=== PATIENT | male | born 1970 | race Caucasian/White ===

== ENCOUNTER 2017-09-04 16:19 | Emergency (ER) | payer MEDICARE ==
[~2017-09-04] VITALS: Ht 177.8 cm; Wt 79.4 kg
[~2017-09-04 16:19] MED LIST: ALBU90I INH; ALBU90OI INH; CIPR500 PO; Cipro250 MG PO; FLUC150A PO; HYDACE5 PO; HYDACE5325 PO; IBUP800 PO; INS70/30PN SUBQ; INSULANI SUBQ; INSULANPEN SC; LANS30EC PO; NYST100TO TOP; NYSTRITC TOP; Norco 5-325 Ta1 EACH PO; PENVK500 PO; PRAV20 PO; PSEU120ER PO; Pyridium100 MG PO; Robaxin500 MG PO
[2017-09-04] MEDS ORDERED: Robaxin500 MG PO (18:12)
== END 2017-09-04 18:18 | disposition home or self-care (01) ==
LOC: ER 16:19
DX: G89.29 Other chronic pain (principal); M54.5 Low back pain; Z88.8 Allergy status to other drugs, medicaments and biological substances; Z79.899 Other long term (current) drug therapy; Z79.4 Long term (current) use of insulin; E11.9 Type 2 diabetes mellitus without complications; E78.5 Hyperlipidemia, unspecified; F17.210 Nicotine dependence, cigarettes, uncomplicated
CPT/HCPCS: 96372; 99283; J1885

== ENCOUNTER 2018-01-25 18:57 | Emergency (ER) | payer MEDICARE ==
[~2018-01-25] VITALS: Ht 177.8 cm; Wt 78.5 kg
== END 2018-01-25 20:15 | disposition home or self-care (01) ==
LOC: ER 18:57
DX: R07.81 Pleurodynia (principal); E11.9 Type 2 diabetes mellitus without complications; E78.5 Hyperlipidemia, unspecified; F17.200 Nicotine dependence, unspecified, uncomplicated; Z88.8 Allergy status to other drugs, medicaments and biological substances; Z79.899 Other long term (current) drug therapy; Z79.4 Long term (current) use of insulin
CPT/HCPCS: 96372; 99282; J1885

== ENCOUNTER → 2019-05-08 | Outpatient (CLI) | payer MEDICARE ==
[2019-05-08 16:10] LABS: Alanine Aminotransfer (ALT/SGP 28 U/L (12-78); Albumin, Blood 3.4 g/dL (3.4-5.0); Albumin/Globulin Ratio 0.7 (0.8-1.8); Alk Phos 66 U/L (40-126); Anion Gap 10 mmol/L (6-16); Aspartate Aminotrans (AST/SGOT 18 U/L (12-37); Bilirubin, Total 0.5 mg/dL (0.1-1.0); Blood Urea Nitrogen 12 mg/dL (8-24); Bun/Creatinine Ratio 13.8 (12.0-20.0); CO2, Blood 27 mmol/L (21-32); Calcium, Blood 8.9 mg/dL (8.5-10.1); Chloride, Blood 99 mmol/L (98-108); Creatinine, Blood 0.87 mg/dL (0.60-1.20); Globulin, Blood 4.7 g/dL (2.2-4.0); Glomerular Filtration Rate >60 (60-); Glucose, Blood 324 mg/dL (70-99); Potassium, Blood 3.7 mmol/L (3.5-5.5); Sodium, Blood 136 mmol/L (136-145); Total Protein, Blood 8.1 g/dL (6.4-8.2)
== END | disposition home or self-care (01) ==
LOC: LAB EV 15:52 → LAB SHORT 15:52
PROVIDERS: Physician Assistant
DX: E11.40 Type 2 diabetes mellitus with diabetic neuropathy, unspecified (principal); R20.2 Paresthesia of skin
CPT/HCPCS: 80053; 82607; 82746; 83036

== ENCOUNTER → 2019-08-23 | Outpatient (CLI) | payer MEDICARE ==
[~2019-08-23] MED LIST changes: +ACETAMINOPHEN500 MG PO; +Lantus100 UNIT/1 SC; +NEURONTIN300 MG PO
[2019-08-23 17:32] LABS: BASOPHILS ABSOLUTE AUTO 0.07 K/mm3 (0.00-0.23); BASOPHILS PERCENT AUTO 1 % (0-2); EOSINOPHILS ABSOLUTE AUTO 0.16 K/mm3 (0.00-0.68); EOSINOPHILS PERCENT AUTO 2 % (0-6); Hematocrit 49.2 % (37.0-53.0); Hemoglobin 17.1 g/dL (13.5-17.5); IMMATURE GRAN ABSOLUTE AUTO 0.01 K/mm3 (0.00-0.10); IMMATURE GRAN PERCENT AUTO 0 % (0-1); LYMPHOCYTES ABSOLUTE AUTO 2.41 K/mm3 (0.84-5.20); LYMPHOCYTES PERCENT AUTO 31 % (21-46); MONOCYTES ABSOLUTE AUTO 0.72 K/mm3 (0.16-1.47); MONOCYTES PERCENT AUTO 9 % (4-13); Mean Corpuscular HGB 30.9 pg (26.0-34.0); Mean Corpuscular HGB Conc 34.8 g/dL (31.5-36.5); Mean Corpuscular Volume 89 fL (80-100); Mean Platelet Volume 10.2 fL (9.1-12.4); NEUTROPHILS ABSOLUTE AUTO 4.51 K/mm3 (1.96-9.15); NEUTROPHILS PERCENT AUTO 57 % (41-73); Platelet Count 385 K/mm3 (150-400); RDW Coefficient Variation 11.9 % (11.7-14.2); RDW Standard Deviation 38.7 fL (35.1-46.3); Red Blood Cell Count 5.53 M/mm3 (4.30-5.90); White Blood Cell Count 7.88 K/mm3 (4.00-11.30)
[2019-08-23 17:41] LABS: Bilirubin, Urine Neg (Neg); Blood, Urine 1+ (Neg); Glucose Qualitative, Urine 4+ (Neg); Ketones, Urine Neg (Neg); Leukocyte Esterase, Urine Neg (Neg); Nitrite, Urine Neg (Neg); Protein, Urine 4+ (Neg); Specific Gravity, Urine 1.025 (1.003-1.022); Urobilinogen, Urine NORM (Normal)
[2019-08-23 17:59] LABS: Alanine Aminotransfer (ALT/SGP 35 U/L (12-78); Albumin, Blood 3.2 g/dL (3.4-5.0); Albumin/Globulin Ratio 0.7 (0.8-1.8); Alk Phos 67 U/L (50-136); Anion Gap 5 mmol/L (6-16); Aspartate Aminotrans (AST/SGOT 17 U/L (12-37); Bilirubin, Total 0.3 mg/dL (0.1-1.0); Blood Urea Nitrogen 16 mg/dL (8-24); Bun/Creatinine Ratio 24.2 (12.0-20.0); CHOL/HDL RATIO 10.2; CO2, Blood 29 mmol/L (21-32); Calcium, Blood 8.9 mg/dL (8.5-10.1); Chloride, Blood 99 mmol/L (98-108); Cholesterol 266 mg/dL (50-200); Creatinine, Blood 0.66 mg/dL (0.60-1.20); Globulin, Blood 4.7 g/dL (2.2-4.0); Glomerular Filtration Rate >60 (60-); Glucose, Blood 347 mg/dL (70-99); HDL Cholesterol 26 mg/dL (>39); LDL/HDL RATIO Unable to Calculate; Low Density Lipoprotein Chol Unable to Calculate mg/dL (0-110); Potassium, Blood 4.4 mmol/L (3.5-5.5); Sodium, Blood 133 mmol/L (136-145); Total Protein, Blood 7.9 g/dL (6.4-8.2); Triglycerides 587 mg/dL (30-160); Very Low Density Lipoprot Chol Unable to Calculate mg/dL (6-32)
[2019-08-23 18:00] LABS: Appearance, Urine Clear (Clear); Color, Urine Yellow (P-Yellow)
[2019-08-23 18:12] LABS: Squamous Epithelial Cells Few /hpf (Few); White Blood Cells, Urine Not Seen /hpf (0-5)
[2019-08-23 18:13] LABS: Bacteria Few /hpf; Calcium Oxalate Crystals Rare /hpf; Red Blood Cells, Urine Rare /hpf (0-2)
[2019-08-23 18:37] LABS: LDL Direct Measurement 166 mg/dL (0-130)
[2019-08-23 19:00] LABS: Microalb/Creat Ratio UR, Rand 2314.81 mg/g (0.000-30.000)
== END ==
LOC: LAB SHORT 16:30
PROVIDERS: Nurse Practitioner Family
DX: E11.42 Type 2 diabetes mellitus with diabetic polyneuropathy (principal)
CPT/HCPCS: 80053; 80061; 81001; 82043; 82570; 83036; 83721; 85025

== ENCOUNTER → 2020-02-08 | Outpatient (CLI) | payer MEDICARE ==
[2020-02-08 19:34] LABS: BASOPHILS ABSOLUTE AUTO 0.09 K/mm3 (0.00-0.23); BASOPHILS PERCENT AUTO 1 % (0-2); EOSINOPHILS ABSOLUTE AUTO 0.22 K/mm3 (0.00-0.68); EOSINOPHILS PERCENT AUTO 3 % (0-6); Hematocrit 44.1 % (37.0-53.0); Hemoglobin 14.9 g/dL (13.5-17.5); IMMATURE GRAN ABSOLUTE AUTO 0.02 K/mm3 (0.00-0.10); IMMATURE GRAN PERCENT AUTO 0 % (0-1); LYMPHOCYTES ABSOLUTE AUTO 2.55 K/mm3 (0.84-5.20); LYMPHOCYTES PERCENT AUTO 32 % (21-46); MONOCYTES ABSOLUTE AUTO 0.79 K/mm3 (0.16-1.47); MONOCYTES PERCENT AUTO 10 % (4-13); Mean Corpuscular HGB 30.8 pg (26.0-34.0); Mean Corpuscular HGB Conc 33.8 g/dL (31.5-36.5); Mean Corpuscular Volume 91 fL (80-100); Mean Platelet Volume 11.5 fL (9.1-12.4); NEUTROPHILS PERCENT AUTO 55 % (41-73); Platelet Count 421 K/mm3 (150-400); RDW Coefficient Variation 12.1 % (11.7-14.2); RDW Standard Deviation 40.7 fL (35.1-46.3); Red Blood Cell Count 4.84 M/mm3 (4.30-5.90); White Blood Cell Count 8.07 K/mm3 (4.00-11.30)
[2020-02-08 21:07] LABS: Alanine Aminotransfer (ALT/SGP 39 U/L (12-78); Albumin, Blood 3.1 g/dL (3.4-5.0); Albumin/Globulin Ratio 0.7 (0.8-1.8); Alk Phos 55 U/L (50-136); Anion Gap 5 mmol/L (6-16); Aspartate Aminotrans (AST/SGOT 25 U/L (12-37); Bilirubin, Total 0.3 mg/dL (0.1-1.0); Blood Urea Nitrogen 14 mg/dL (8-24); Bun/Creatinine Ratio 17.3 (12.0-20.0); CHOL/HDL RATIO 6.8; CO2, Blood 28 mmol/L (21-32); Chloride, Blood 103 mmol/L (98-108); Cholesterol 246 mg/dL (50-200); Creatinine, Blood 0.81 mg/dL (0.60-1.20); Globulin, Blood 4.2 g/dL (2.2-4.0); Glomerular Filtration Rate >60 (60-); Glucose, Blood 231 mg/dL (70-99); HDL Cholesterol 36 mg/dL (>39); LDL/HDL RATIO 4.2; Low Density Lipoprotein Chol 150 mg/dL (0-110); Potassium, Blood 4.8 mmol/L (3.5-5.5); Sodium, Blood 136 mmol/L (136-145); Total Protein, Blood 7.3 g/dL (6.4-8.2); Triglycerides 301 mg/dL (30-160); Very Low Density Lipoprot Chol 60 mg/dL (6-32)
== END | disposition home or self-care (01) ==
LOC: LAB 18:34 → LAB SHORT 18:34
PROVIDERS: Nurse Practitioner Family
DX: E78.5 Hyperlipidemia, unspecified (principal); I10 Essential (primary) hypertension
CPT/HCPCS: 80053; 80061; 85025

== ENCOUNTER 2020-09-24 19:22 | Emergency (ER) | payer MEDICARE ==
[~2020-09-24] VITALS: Ht 177.8 cm; Wt 79.4 kg
[2020-09-24 20:06] LABS: BASOPHILS ABSOLUTE AUTO 0.07 K/mm3 (0.00-0.23); BASOPHILS PERCENT AUTO 1 % (0-2); EOSINOPHILS PERCENT AUTO 2 % (0-6); Hematocrit 37.1 % (37.0-53.0); IMMATURE GRAN ABSOLUTE AUTO 0.02 K/mm3 (0.00-0.10); IMMATURE GRAN PERCENT AUTO 0 % (0-1); LYMPHOCYTES ABSOLUTE AUTO 2.63 K/mm3 (0.84-5.20); LYMPHOCYTES PERCENT AUTO 31 % (21-46); MONOCYTES ABSOLUTE AUTO 0.93 K/mm3 (0.16-1.47); MONOCYTES PERCENT AUTO 11 % (4-13); Mean Corpuscular HGB 30.7 pg (26.0-34.0); Mean Corpuscular Volume 88 fL (80-100); Mean Platelet Volume 9.5 fL (9.1-12.4); NEUTROPHILS ABSOLUTE AUTO 4.61 K/mm3 (1.96-9.15); NEUTROPHILS PERCENT AUTO 55 % (41-73); Platelet Count 374 K/mm3 (150-400); RDW Standard Deviation 38.3 fL (35.1-46.3); Red Blood Cell Count 4.23 M/mm3 (4.30-5.90); White Blood Cell Count 8.46 K/mm3 (4.00-11.30)
[2020-09-24 20:20] LABS: Alanine Aminotransfer (ALT/SGP 37 U/L (12-78); Albumin, Blood 2.5 g/dL (3.4-5.0); Albumin/Globulin Ratio 0.6 (0.8-1.8); Alk Phos 52 U/L (50-136); Anion Gap 7 mmol/L (6-16); Aspartate Aminotrans (AST/SGOT 18 U/L (12-37); Bilirubin, Total 0.2 mg/dL (0.1-1.0); Blood Urea Nitrogen 21 mg/dL (8-24); Bun/Creatinine Ratio 20.6 (12.0-20.0); CO2, Blood 25 mmol/L (21-32); Calcium, Blood 8.3 mg/dL (8.5-10.1); Chloride, Blood 101 mmol/L (98-108); Creatinine, Blood 1.02 mg/dL (0.60-1.20); Globulin, Blood 4.1 g/dL (2.2-4.0); Glomerular Filtration Rate >60 (60-); Glucose, Blood 387 mg/dL (70-99); Potassium, Blood 4.2 mmol/L (3.5-5.5); Sodium, Blood 133 mmol/L (136-145); Total Protein, Blood 6.6 g/dL (6.4-8.2); Troponin I <0.015 ng/mL (0.000-0.040)
[2020-09-24 21:00] LABS: Influenza A, PCR NEGATIVE (NEGATIVE); Influenza B, PCR NEGATIVE (NEGATIVE); Resp Syncytial Virus, PCR NEGATIVE (NEGATIVE); SARS-Cov-2 (COVID-19) PCR, MMC NEGATIVE (NEGATIVE)
== END 2020-09-24 21:49 | disposition home or self-care (01) ==
LOC: ER 19:22
PROVIDERS: Emergency Medicine
DX: R06.00 Dyspnea, unspecified (principal); R05 Cough; E11.9 Type 2 diabetes mellitus without complications; F17.200 Nicotine dependence, unspecified, uncomplicated; Z79.899 Other long term (current) drug therapy; Z20.822 Contact with and (suspected) exposure to COVID-19; Z88.8 Allergy status to other drugs, medicaments and biological substances; Z79.4 Long term (current) use of insulin
CPT/HCPCS: 0241U; 71045; 80053; 84484; 85025; 93005; 93010; 99285-25

== ENCOUNTER 2021-04-17 23:19 | Emergency (ER) | payer MEDICARE, OTHER ==
[~2021-04-17] VITALS: Ht 177.8 cm; Wt 89.8 kg
[2021-04-17 23:59] LABS: BASOPHILS ABSOLUTE AUTO 0.05 K/mm3 (0.00-0.23); BASOPHILS PERCENT AUTO 1 % (0-2); EOSINOPHILS ABSOLUTE AUTO 0.24 K/mm3 (0.00-0.68); EOSINOPHILS PERCENT AUTO 3 % (0-6); Hematocrit 37.1 % (37.0-53.0); Hemoglobin 12.5 g/dL (13.5-17.5); IMMATURE GRAN ABSOLUTE AUTO 0.02 K/mm3 (0.00-0.10); IMMATURE GRAN PERCENT AUTO 0 % (0-1); LYMPHOCYTES ABSOLUTE AUTO 1.85 K/mm3 (0.84-5.20); LYMPHOCYTES PERCENT AUTO 23 % (21-46); MONOCYTES PERCENT AUTO 11 % (4-13); Mean Corpuscular HGB 30.5 pg (26.0-34.0); Mean Corpuscular HGB Conc 33.7 g/dL (31.5-36.5); Mean Corpuscular Volume 91 fL (80-100); Mean Platelet Volume 9.5 fL (9.1-12.4); NEUTROPHILS ABSOLUTE AUTO 5.09 K/mm3 (1.96-9.15); NEUTROPHILS PERCENT AUTO 63 % (41-73); Platelet Count 312 K/mm3 (150-400); RDW Coefficient Variation 13.1 % (11.7-14.2); RDW Standard Deviation 42.8 fL (35.1-46.3); White Blood Cell Count 8.15 K/mm3 (4.00-11.30)
[2021-04-18 00:19] LABS: Albumin, Blood 2.5 g/dL (3.4-5.0); Albumin/Globulin Ratio 0.6 (0.8-1.8); Bilirubin, Total 0.3 mg/dL (0.1-1.0); Bun/Creatinine Ratio 21.7 (12.0-20.0); Calcium, Blood 8.8 mg/dL (8.5-10.1); Creatinine, Blood 1.66 mg/dL (0.60-1.20); Globulin, Blood 4.2 g/dL (2.2-4.0); Potassium, Blood 4.2 mmol/L (3.5-5.5); Total Protein, Blood 6.7 g/dL (6.4-8.2); Troponin I 0.037 ng/mL (0.000-0.040)
[2021-04-18] MEDS ORDERED: GABA300 PO (02:00)
[2021-04-18] MEDS ORDERED: NEURONTIN300 MG PO (02:01)
== END 2021-04-18 03:15 | disposition home or self-care (01) ==
LOC: ER 23:19
PROVIDERS: Student in an Organized Health Care Education/Training Program
DX: I50.9 Heart failure, unspecified (principal); E11.9 Type 2 diabetes mellitus without complications; E78.5 Hyperlipidemia, unspecified; F17.200 Nicotine dependence, unspecified, uncomplicated; Z88.8 Allergy status to other drugs, medicaments and biological substances
CPT/HCPCS: 36415; 71046; 80053; 83880; 84484; 85025; 93005; 93010; 96374; 99285-25; J1940

== ENCOUNTER 2021-05-05 02:32 | Inpatient (IN) | payer MEDICARE ==
[~2021-05-05] VITALS: Ht 177.8 cm; Wt 88.3 kg
[~2021-05-05 02:32] MED LIST changes: +GABA300 PO
[2021-05-05 03:15] LABS: BASOPHILS ABSOLUTE AUTO 0.05 K/mm3 (0.00-0.23); BASOPHILS PERCENT AUTO 1 % (0-2); EOSINOPHILS ABSOLUTE AUTO 0.09 K/mm3 (0.00-0.68); EOSINOPHILS PERCENT AUTO 1 % (0-6); Hematocrit 34.2 % (37.0-53.0); Hemoglobin 11.5 g/dL (13.5-17.5); IMMATURE GRAN ABSOLUTE AUTO 0.03 K/mm3 (0.00-0.10); IMMATURE GRAN PERCENT AUTO 0 % (0-1); LYMPHOCYTES PERCENT AUTO 16 % (21-46); MONOCYTES ABSOLUTE AUTO 1.63 K/mm3 (0.16-1.47); MONOCYTES PERCENT AUTO 19 % (4-13); Mean Corpuscular HGB 30.8 pg (26.0-34.0); Mean Corpuscular HGB Conc 33.6 g/dL (31.5-36.5); Mean Corpuscular Volume 92 fL (80-100); Mean Platelet Volume 10.3 fL (9.1-12.4); NEUTROPHILS ABSOLUTE AUTO 5.31 K/mm3 (1.96-9.15); NEUTROPHILS PERCENT AUTO 63 % (41-73); Platelet Count 306 K/mm3 (150-400); RDW Coefficient Variation 11.9 % (11.7-14.2); RDW Standard Deviation 40.5 fL (35.1-46.3); Red Blood Cell Count 3.73 M/mm3 (4.30-5.90); White Blood Cell Count 8.41 K/mm3 (4.00-11.30)
[2021-05-05 03:30] LABS: Albumin, Blood 2.1 g/dL (3.4-5.0); Albumin/Globulin Ratio 0.4 (0.8-1.8); Bilirubin, Total 0.3 mg/dL (0.1-1.0); Bun/Creatinine Ratio 20.6 (12.0-20.0); Calcium, Blood 8.4 mg/dL (8.5-10.1); Creatinine, Blood 1.94 mg/dL (0.60-1.20); Globulin, Blood 4.9 g/dL (2.2-4.0); Potassium, Blood 4.4 mmol/L (3.5-5.5); Troponin I 0.067 ng/mL (0.000-0.040)
[2021-05-05] MEDS ORDERED: FUROSEMIDE20 MG PO (05:55)
[2021-05-05] MEDS ORDERED: LOSA50 PO (05:56)
[2021-05-05] MEDS ORDERED: METOPROLOL SUCC ER 5 (05:56)
[2021-05-05] MEDS ORDERED: GLIP10 PO (05:56)
[2021-05-05] MEDS ORDERED: KLOR-CON 1010 ME5 PO (05:56)
[2021-05-05] MEDS ORDERED: TRAM50 PO (05:57)
[2021-05-05] MEDS ORDERED: NEURONTIN300 MG PO (05:57)
[2021-05-05 07:21] LABS: Influenza A, PCR NEGATIVE (NEGATIVE); Influenza B, PCR NEGATIVE (NEGATIVE); Resp Syncytial Virus, PCR NEGATIVE (NEGATIVE); SARS-Cov-2 (COVID-19) PCR, MMC NEGATIVE (NEGATIVE)
--- NOTE | 2021-05-05 09:39 | NUR ---
Pt arrived to ICU room 3, able to carry on coversation, spo2 96% at rest on room air. PT states he is feeling much better, voiding clear yellow urine in the urinal while standing at bedside. Denies dizzyness, lightheadedness, pain.
--- NOTE | 2021-05-05 10:05 | NUR ---
spoke with Dr. Sandhu; informed him of pt's vital signs, present status on Room air, voiding, and nitro gtt off, pt denies chest pain.
--- NOTE | 2021-05-05 12:53 | NUR ---
Pt appears to be sleeping comfortably, on his right side, HOB elevated slightly, RR 24/min, spo2 92% on room air. Heart rate 89 bpm, NSR.
--- NOTE | 2021-05-05 16:15 | NUR ---
Awake from nap, sitting on side of bed. His sister Kathya just left after coming from [place] to visit. PT lives with her. She is recovering from Bronchitis, states covid test was negative last week for her also, and has been on antibiotics and took her last dose today. sputum specimen obtained, sent to lab. Pt has been coughing quite a bit while awake. States he would like cough drop. Medicated with cough syrup per PRN orders. He is pleasantly conversant, making jokes about the wonderful filet darrell he will have tonight here at the hospital. States "I like to laugh. It makes me feel better."
--- NOTE | 2021-05-05 17:53 | NUR ---
Pt c/o pain "all over" but especially in his knees and back, exacerbated by cold temperatures. C/o room being cold about an hour ago, and thermostat was adjusted to highest setting. Warm blankets provided for him. Given pain medication at this time.
--- NOTE | 2021-05-05 19:19 | NUR ---
Assumed Care: Pt comfortably resting in bed, occassionally has strong non-productive cough. AO, independent with ADLs and appropriately calls if additional help is needed.
[2021-05-06 03:21] LABS: BASOPHILS ABSOLUTE AUTO 0.04 K/mm3 (0.00-0.23); BASOPHILS PERCENT AUTO 1 % (0-2); EOSINOPHILS ABSOLUTE AUTO 0.13 K/mm3 (0.00-0.68); EOSINOPHILS PERCENT AUTO 2 % (0-6); Hematocrit 30.6 % (37.0-53.0); Hemoglobin 10.4 g/dL (13.5-17.5); IMMATURE GRAN ABSOLUTE AUTO 0.02 K/mm3 (0.00-0.10); IMMATURE GRAN PERCENT AUTO 0 % (0-1); LYMPHOCYTES PERCENT AUTO 14 % (21-46); MONOCYTES ABSOLUTE AUTO 1.48 K/mm3 (0.16-1.47); MONOCYTES PERCENT AUTO 18 % (4-13); Mean Corpuscular HGB 30.5 pg (26.0-34.0); Mean Corpuscular Volume 90 fL (80-100); Mean Platelet Volume 9.4 fL (9.1-12.4); NEUTROPHILS ABSOLUTE AUTO 5.45 K/mm3 (1.96-9.15); NEUTROPHILS PERCENT AUTO 66 % (41-73); Platelet Count 290 K/mm3 (150-400); RDW Coefficient Variation 11.9 % (11.7-14.2); RDW Standard Deviation 39.1 fL (35.1-46.3); Red Blood Cell Count 3.41 M/mm3 (4.30-5.90); White Blood Cell Count 8.32 K/mm3 (4.00-11.30)
[2021-05-06 03:59] LABS: Albumin, Blood 1.9 g/dL (3.4-5.0); Albumin/Globulin Ratio 0.5 (0.8-1.8); Bilirubin, Total 0.3 mg/dL (0.1-1.0); Bun/Creatinine Ratio 21.9 (12.0-20.0); Creatinine, Blood 1.92 mg/dL (0.60-1.20); Globulin, Blood 3.9 g/dL (2.2-4.0); Magnesium, Blood 1.5 mg/dL (1.6-2.4); Potassium, Blood 4.6 mmol/L (3.5-5.5); Total Protein, Blood 5.8 g/dL (6.4-8.2); Troponin I 0.063 ng/mL (0.000-0.040)
[2021-05-06 04:01] LABS: C-Reactive Protein, High Sens. 20.9 mg/L (0.000-3.000)
--- NOTE | 2021-05-06 05:43 | NUR ---
END OF SHIFT SUMMARY: Pt AOx4, pleasant and cooperative. Able to independently do ADLs and reposition self. Had a couple episodes of severe coughing where pt had shortness of breath and asked to be put on the nasal cannula at 2L. Lung sounds diminished and clear, understands he needs oxygen while asleep. Gave 1x dose of ordered Robitussin which seemed to help pt.'s cough. BP stable SBP 150 - 170's, HR remained in the 90's. Edema on bilat lower ext. continues to improve.
--- NOTE | 2021-05-06 07:00 | NUR ---
ASSUME CARE: I have assumed care of pt at this time. He is currently resting on the bed, denies any complaints.
--- NOTE | 2021-05-06 18:03 | NUR ---
END OF SHIFT SUMMARY: Pt transferred to Medical status today. He has been up in room independantly. PRN tramadol and tylenol given for back pain once today. Pt currently talking to family on phone while resting back on his bed, legs kicked up; NAD. \\
--- NOTE | 2021-05-06 19:50 | NUR ---
Carroll of Care: Pt AOx4, independent and able to easily manuever around room. Waiting for a medical floor bed. Complained of pain but is able to tolerate with repositioning and ambulating.
--- NOTE | 2021-05-07 00:34 | NUR ---
Shift Summary: Pt tx to medical floor room 359 at around 2200. Pt still pleasant, cooperative and AOx4. Gave to report to RN and notified pt of his new room number
--- NOTE | 2021-05-07 00:59 | NUR ---
PT. ARRIVED ON UNIT AT 2205 AOX3 AND FELT NAUSEATED. THIS NURSE OFFERED AN EMESIS BAG AND CRACKERS. ONCE THE PT. WAS SETTLED THERE WAS NO S/S OF N/V. THIS NURSE AGREES WITH THE REPORT AND PRIOR ASSESSMENTS. WILL CONTINUE TO CARE FOR THE PT UNTIL REPORT IS GIVEN.
[2021-05-07 05:08] LABS: BASOPHILS ABSOLUTE AUTO 0.05 K/mm3 (0.00-0.23); BASOPHILS PERCENT AUTO 1 % (0-2); EOSINOPHILS ABSOLUTE AUTO 0.24 K/mm3 (0.00-0.68); EOSINOPHILS PERCENT AUTO 3 % (0-6); Hematocrit 31.8 % (37.0-53.0); Hemoglobin 10.8 g/dL (13.5-17.5); IMMATURE GRAN ABSOLUTE AUTO 0.02 K/mm3 (0.00-0.10); IMMATURE GRAN PERCENT AUTO 0 % (0-1); LYMPHOCYTES PERCENT AUTO 23 % (21-46); MONOCYTES ABSOLUTE AUTO 1.26 K/mm3 (0.16-1.47); MONOCYTES PERCENT AUTO 16 % (4-13); Mean Corpuscular HGB 30.4 pg (26.0-34.0); Mean Corpuscular Volume 90 fL (80-100); Mean Platelet Volume 10.3 fL (9.1-12.4); NEUTROPHILS ABSOLUTE AUTO 4.41 K/mm3 (1.96-9.15); NEUTROPHILS PERCENT AUTO 57 % (41-73); Platelet Count 309 K/mm3 (150-400); RDW Coefficient Variation 11.9 % (11.7-14.2); RDW Standard Deviation 39.2 fL (35.1-46.3); Red Blood Cell Count 3.55 M/mm3 (4.30-5.90); White Blood Cell Count 7.78 K/mm3 (4.00-11.30)
[2021-05-07 05:48] LABS: Albumin, Blood 1.9 g/dL (3.4-5.0); Albumin/Globulin Ratio 0.5 (0.8-1.8); Bilirubin, Total 0.2 mg/dL (0.1-1.0); Calcium, Blood 8.2 mg/dL (8.5-10.1); Creatinine, Blood 1.92 mg/dL (0.60-1.20); Globulin, Blood 4.1 g/dL (2.2-4.0); Magnesium, Blood 1.7 mg/dL (1.6-2.4); Potassium, Blood 4.7 mmol/L (3.5-5.5)
--- NOTE | 2021-05-07 06:19 | NUR ---
SHIFT SUMMARY PT. AOX3 AND ABLE TO REST SOME THIS SHIFT. PT. C/O OF LEFT ARM AND CHEST HURTING, MEDICATED PER EMAR. PT. WAS ABLE TO FALL BACK ASLEEP WITTH RISE AND FALL OF CHEST. NO S/S OF DISTRESS, THIS NURSE WILL CONTINUE TO MONITOR UNTIL REPORT IS GIVEN.
[2021-05-07] MEDS ORDERED: METO25ER PO (10:25)
[2021-05-07] MEDS ORDERED: AZIT500 PO (10:28)
[2021-05-07] MEDS ORDERED: ASPI81CH PO (10:28)
[2021-05-07] MEDS ORDERED: CEFD300 PO (10:28)
[2021-05-07] MEDS ORDERED: ACET325 PO (10:28)
[2021-05-07] MEDS ORDERED: ROBITUSSIN DM PO (10:29)
[2021-05-07] MEDS ORDERED: FAMO20 PO (10:54)
[2021-05-07] MEDS ORDERED: MAGNESIUM OXID500 MG PO (10:54)
[2021-05-07] MEDS ORDERED: NICO21TP TOP (10:55)
[2021-05-07] MEDS ORDERED: ONDA4ODT MM (10:55)
[2021-05-07] MEDS ORDERED: NASAL SPRAY88 ML (10:56)
[2021-05-07] MEDS ORDERED: VISBIOME 112.51 EACH PO (10:57)
--- NOTE | 2021-05-07 15:09 | NUR ---
Upon receing a referral for spiritual care, I visit patient. 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 He talks about his struggles with memory loss that has resulted in challenges in managing his medications. Pt also discusses his change from Catholism to Hinduism beliefs and that he now att[facility] in [place]. I provide therapeutic listening, companionship, recitation of inspiring Bible verses and prayer. Patient responds well and shows signs of being encouraged in his dhara.
--- NOTE | 2021-05-07 16:54 | NUR ---
SHIFT SUMMARY PATIENT IS ALERT AND ORIENTED, PLEASANT AND COOPERATIVE WITH CARE. PATIENT HAS ONE IV IN THE LEFT AC, AND ANOTHER IN THE RIGHT FOREARM. PATIENT HAS BEEN MEDICATED PER THE EMAR FOR PAIN ONCE THIS SHIFT. PATIENT RECEIVED ZOFRAN FOR RELIEF OF NAUSEA/VOMITTING. PATIENT HAS BEEN INDEPENDENT IN ROOM. PATIENT MAY POSSIBLY DISCHARGE TOMORROW. NO ACUTE CHANGES. VSS. THIS NURSE WILL CONTINUE TO CARE FOR THE PATIENT UNTIL SHIFT REPORT IS GIVEN TO THE ONCOMING NURSE.
[2021-05-08 05:01] LABS: BASOPHILS ABSOLUTE AUTO 0.04 K/mm3 (0.00-0.23); BASOPHILS PERCENT AUTO 1 % (0-2); EOSINOPHILS ABSOLUTE AUTO 0.33 K/mm3 (0.00-0.68); EOSINOPHILS PERCENT AUTO 5 % (0-6); Hematocrit 29.7 % (37.0-53.0); Hemoglobin 9.9 g/dL (13.5-17.5); IMMATURE GRAN ABSOLUTE AUTO 0.02 K/mm3 (0.00-0.10); IMMATURE GRAN PERCENT AUTO 0 % (0-1); LYMPHOCYTES ABSOLUTE AUTO 1.73 K/mm3 (0.84-5.20); LYMPHOCYTES PERCENT AUTO 25 % (21-46); MONOCYTES ABSOLUTE AUTO 1.08 K/mm3 (0.16-1.47); MONOCYTES PERCENT AUTO 16 % (4-13); Mean Corpuscular HGB 30.1 pg (26.0-34.0); Mean Corpuscular HGB Conc 33.3 g/dL (31.5-36.5); Mean Corpuscular Volume 90 fL (80-100); Mean Platelet Volume 10.1 fL (9.1-12.4); NEUTROPHILS ABSOLUTE AUTO 3.61 K/mm3 (1.96-9.15); NEUTROPHILS PERCENT AUTO 53 % (41-73); Platelet Count 319 K/mm3 (150-400); RDW Coefficient Variation 11.9 % (11.7-14.2); RDW Standard Deviation 39.9 fL (35.1-46.3); Red Blood Cell Count 3.29 M/mm3 (4.30-5.90); White Blood Cell Count 6.81 K/mm3 (4.00-11.30)
[2021-05-08 05:42] LABS: Albumin, Blood 1.7 g/dL (3.4-5.0); Albumin/Globulin Ratio 0.4 (0.8-1.8); Bilirubin, Total 0.3 mg/dL (0.1-1.0); Bun/Creatinine Ratio 23.2 (12.0-20.0); Calcium, Blood 8.5 mg/dL (8.5-10.1); Creatinine, Blood 1.98 mg/dL (0.60-1.20); Globulin, Blood 4.7 g/dL (2.2-4.0); Potassium, Blood 4.7 mmol/L (3.5-5.5); Total Protein, Blood 6.4 g/dL (6.4-8.2)
--- NOTE | 2021-05-08 06:38 | NUR ---
SHIFT SUMMARY PT. AOX3 AND WAS SITTING ON SIDE THE BED AT THE START OF THIS SHIFT. PT. REQUESTED A SNACK AND C/O LEG PAIN. PT. MEDICATED PER EMAR AND HAS REQUESTED MEDS TO HELP WITH A BOWEL MOVEMENT. PT. RESTED WELL THIS SHIFT AND DENIES ANY OTHER NEEDS AT THE MOMENT. WILL CONTINUE TO MONITOR UNTIL REPORT IS GIVEN.
--- NOTE | 2021-05-08 12:02 | NUR ---
DISCHARGE SUMMARY PT DISCHARGED TO HOME. PT LEFT ROOM VIA WHEELCHAIR AND SHAFT HEADMAN ESCORT JUST PRIOR TO THIS NOTE. IV DC'D AND BELONINGS RETURNED. PT IN A HURRY TO BE DISCHARGED AND LEFT IN A HURRY. THIS NURSE EDUCATED PATIENT ON NEW MEDICATIONS, TO FOLLOW UP WITH PCP WITHIN ONE WEEK AND INSTRUCTED TO BARGE HAND MEDICATIONS FROM PHARMACY. [employer] FILL PAPERWORK GIVEN TO PATIENT SO THAT HE COULD BARGE HAND MEDICATIONS TODAY. THIS NURSE AND CHARGE NURSE ATTEMPTED TO SCHEDULE APPOINTMENT FOR PATIENT BUT WERE UNSUCCESSFUL.
--- NOTE | 2021-05-08 15:16 | NUR ---
Met. pt.sitting up he reports to be doing well [id number] pt and prayedfor him
== END 2021-05-08 12:10 | disposition home or self-care (01) | DRG 280 ==
LOC: ER 02:32 → MEDS 05:50 → ICUE 05:50 → ERHOLD 05:50 → ICUE 09:02 → MEDS 05-06 22:42
PROVIDERS: Family Medicine; Student in an Organized Health Care Education/Training Program; ADMIT Internal Medicine
PROC: 5A09357 Assistance with Respiratory Ventilation, Less than 24 Consecutive Hours, Continuous Positive Airway Pressure (ICD-10-PCS; principal; 2021-05-05)
DX: I13.0 Hypertensive heart and chronic kidney disease with heart failure and stage 1 through stage 4 chronic kidney disease, or unspecified chronic kidney disease (principal); J18.9 Pneumonia, unspecified organism; I21.A1 Myocardial infarction type 2; I50.23 Acute on chronic systolic (congestive) heart failure; J96.01 Acute respiratory failure with hypoxia; I16.1 Hypertensive emergency; N17.9 Acute kidney failure, unspecified; Z20.822 Contact with and (suspected) exposure to COVID-19; E11.22 Type 2 diabetes mellitus with diabetic chronic kidney disease; N18.30 Chronic kidney disease, stage 3 unspecified; E78.5 Hyperlipidemia, unspecified; Z28.21 Immunization not carried out because of patient refusal; E11.9 Type 2 diabetes mellitus without complications; M54.9 Dorsalgia, unspecified; G89.29 Other chronic pain; K21.9 Gastro-esophageal reflux disease without esophagitis; F17.210 Nicotine dependence, cigarettes, uncomplicated; Z88.8 Allergy status to other drugs, medicaments and biological substances; Z79.899 Other long term (current) drug therapy
CPT/HCPCS: 0241U; 36415; 71045; 71046; 80053; 82947; 83735; 83880; 84145; 84484; 85025; 86141; 87070; 87205; 93005; 93010; 93306; 94660; 94761; 94762; 96365; 96366; 96375; 99285-25; A9270; J0696; J1644; J1940

== ENCOUNTER → 2021-05-14 | Outpatient (CLI) | payer MEDICARE ==
[~2021-05-14] MED LIST changes: +ACET325 PO; +ASPI81CH PO; +AZIT500 PO; +CEFD300 PO; +FAMO20 PO; +FUROSEMIDE20 MG PO; +GLIP10 PO; +KLOR-CON 1010 ME5 PO; +LOSA50 PO; +MAGNESIUM OXID500 MG PO; +METO25ER PO; +METOPROLOL SUCC ER 5; +NASAL SPRAY88 ML; +NICO21TP TOP; +ONDA4ODT MM; +ROBITUSSIN DM PO; +TRAM50 PO; +VISBIOME 112.51 EACH PO
[2021-05-14 16:26] LABS: BASOPHILS ABSOLUTE AUTO 0.09 K/mm3 (0.00-0.23); BASOPHILS PERCENT AUTO 1 % (0-2); EOSINOPHILS ABSOLUTE AUTO 0.26 K/mm3 (0.00-0.68); EOSINOPHILS PERCENT AUTO 2 % (0-6); Hematocrit 32.4 % (37.0-53.0); Hemoglobin 10.5 g/dL (13.5-17.5); IMMATURE GRAN ABSOLUTE AUTO 0.05 K/mm3 (0.00-0.10); IMMATURE GRAN PERCENT AUTO 0 % (0-1); LYMPHOCYTES ABSOLUTE AUTO 2.48 K/mm3 (0.84-5.20); LYMPHOCYTES PERCENT AUTO 22 % (21-46); MONOCYTES ABSOLUTE AUTO 1.19 K/mm3 (0.16-1.47); MONOCYTES PERCENT AUTO 11 % (4-13); Mean Corpuscular HGB 29.7 pg (26.0-34.0); Mean Corpuscular HGB Conc 32.4 g/dL (31.5-36.5); Mean Corpuscular Volume 92 fL (80-100); Mean Platelet Volume 10.6 fL (9.1-12.4); NEUTROPHILS ABSOLUTE AUTO 7.15 K/mm3 (1.96-9.15); NEUTROPHILS PERCENT AUTO 64 % (41-73); Platelet Count 546 K/mm3 (150-400); RDW Coefficient Variation 11.9 % (11.7-14.2); RDW Standard Deviation 40.2 fL (35.1-46.3); Red Blood Cell Count 3.54 M/mm3 (4.30-5.90); White Blood Cell Count 11.22 K/mm3 (4.00-11.30)
[2021-05-14 16:56] LABS: Bun/Creatinine Ratio 20.9 (12.0-20.0); Creatinine, Blood 1.82 mg/dL (0.60-1.20); Potassium, Blood 5.3 mmol/L (3.5-5.5)
== END | disposition home or self-care (01) ==
LOC: LAB SHORT 15:07 → LAB 15:07
PROVIDERS: Family Medicine
DX: N17.9 Acute kidney failure, unspecified (principal); D64.9 Anemia, unspecified
CPT/HCPCS: 80048; 85025

== ENCOUNTER 2021-05-25 11:35 | Emergency (ER) | payer MEDICARE ==
[~2021-05-25] VITALS: Ht 177.8 cm; Wt 86.6 kg
[2021-05-25 12:00] LABS: BASOPHILS ABSOLUTE AUTO 0.07 K/mm3 (0.00-0.23); BASOPHILS PERCENT AUTO 1 % (0-2); EOSINOPHILS PERCENT AUTO 3 % (0-6); Hematocrit 33.5 % (37.0-53.0); IMMATURE GRAN ABSOLUTE AUTO 0.02 K/mm3 (0.00-0.10); IMMATURE GRAN PERCENT AUTO 0 % (0-1); LYMPHOCYTES ABSOLUTE AUTO 1.73 K/mm3 (0.84-5.20); LYMPHOCYTES PERCENT AUTO 23 % (21-46); MONOCYTES ABSOLUTE AUTO 0.86 K/mm3 (0.16-1.47); MONOCYTES PERCENT AUTO 12 % (4-13); Mean Corpuscular HGB 29.2 pg (26.0-34.0); Mean Corpuscular HGB Conc 32.8 g/dL (31.5-36.5); Mean Corpuscular Volume 89 fL (80-100); Mean Platelet Volume 9.4 fL (9.1-12.4); NEUTROPHILS ABSOLUTE AUTO 4.59 K/mm3 (1.96-9.15); NEUTROPHILS PERCENT AUTO 61 % (41-73); Platelet Count 420 K/mm3 (150-400); RDW Coefficient Variation 11.9 % (11.7-14.2); RDW Standard Deviation 38.3 fL (35.1-46.3); Red Blood Cell Count 3.77 M/mm3 (4.30-5.90); White Blood Cell Count 7.47 K/mm3 (4.00-11.30)
[2021-05-25 12:12] LABS: Albumin/Globulin Ratio 0.4 (0.8-1.8); Bilirubin, Total 0.3 mg/dL (0.1-1.0); Bun/Creatinine Ratio 17.2 (12.0-20.0); Calcium, Blood 8.7 mg/dL (8.5-10.1); Creatinine, Blood 1.92 mg/dL (0.60-1.20); Potassium, Blood 4.8 mmol/L (3.5-5.5); Troponin I 0.037 ng/mL (0.000-0.040)
[2021-05-25] MEDS ORDERED: Pepcid40 MG PO (13:38)
== END 2021-05-25 14:17 | disposition home or self-care (01) ==
LOC: ER 11:35
PROVIDERS: Emergency Medicine
DX: R07.9 Chest pain, unspecified (principal); K27.9 Peptic ulcer, site unspecified, unspecified as acute or chronic, without hemorrhage or perforation; R79.89 Other specified abnormal findings of blood chemistry; E11.9 Type 2 diabetes mellitus without complications; E78.5 Hyperlipidemia, unspecified; I50.9 Heart failure, unspecified; F17.210 Nicotine dependence, cigarettes, uncomplicated; Z88.8 Allergy status to other drugs, medicaments and biological substances; Z79.82 Long term (current) use of aspirin; Z79.899 Other long term (current) drug therapy
CPT/HCPCS: 36415; 71045; 76705; 80053; 84484; 85025; 93005; 93010; 96374; 99285-25

== ENCOUNTER 2021-06-08 13:55 | Emergency (ER) | payer MEDICARE ==
[~2021-06-08] VITALS: Ht 177.8 cm; Wt 86.6 kg
[~2021-06-08 13:55] MED LIST changes: +Pepcid40 MG PO
[2021-06-08 15:20] LABS: BASOPHILS ABSOLUTE AUTO 0.05 K/mm3 (0.00-0.23); BASOPHILS PERCENT AUTO 1 % (0-2); EOSINOPHILS ABSOLUTE AUTO 0.18 K/mm3 (0.00-0.68); EOSINOPHILS PERCENT AUTO 3 % (0-6); Hematocrit 35.9 % (37.0-53.0); Hemoglobin 12.2 g/dL (13.5-17.5); IMMATURE GRAN ABSOLUTE AUTO 0.03 K/mm3 (0.00-0.10); IMMATURE GRAN PERCENT AUTO 1 % (0-1); LYMPHOCYTES ABSOLUTE AUTO 1.75 K/mm3 (0.84-5.20); LYMPHOCYTES PERCENT AUTO 27 % (21-46); MONOCYTES ABSOLUTE AUTO 0.86 K/mm3 (0.16-1.47); MONOCYTES PERCENT AUTO 13 % (4-13); Mean Corpuscular HGB 29.3 pg (26.0-34.0); Mean Corpuscular Volume 86 fL (80-100); Mean Platelet Volume 9.9 fL (9.1-12.4); NEUTROPHILS ABSOLUTE AUTO 3.68 K/mm3 (1.96-9.15); NEUTROPHILS PERCENT AUTO 56 % (41-73); Platelet Count 419 K/mm3 (150-400); RDW Coefficient Variation 12.1 % (11.7-14.2); RDW Standard Deviation 38.1 fL (35.1-46.3); Red Blood Cell Count 4.17 M/mm3 (4.30-5.90); White Blood Cell Count 6.55 K/mm3 (4.00-11.30)
[2021-06-08 15:34] LABS: Albumin, Blood 2.1 g/dL (3.4-5.0); Albumin/Globulin Ratio 0.4 (0.8-1.8); Bilirubin, Total 0.2 mg/dL (0.1-1.0); Bun/Creatinine Ratio 20.2 (12.0-20.0); Calcium, Blood 8.4 mg/dL (8.5-10.1); Creatinine, Blood 1.78 mg/dL (0.60-1.20); Globulin, Blood 4.9 g/dL (2.2-4.0); Potassium, Blood 4.7 mmol/L (3.5-5.5); Troponin I 0.017 ng/mL (0.000-0.040)
[2021-06-08] MEDS ORDERED: NITR.4SL SL (16:38)
== END 2021-06-08 17:05 | disposition home or self-care (01) ==
LOC: ER 13:55
PROVIDERS: Student in an Organized Health Care Education/Training Program
DX: R07.2 Precordial pain (principal); I11.0 Hypertensive heart disease with heart failure; I50.9 Heart failure, unspecified; E11.9 Type 2 diabetes mellitus without complications; E78.5 Hyperlipidemia, unspecified; F17.210 Nicotine dependence, cigarettes, uncomplicated; Z88.8 Allergy status to other drugs, medicaments and biological substances; Z79.899 Other long term (current) drug therapy; Z79.84 Long term (current) use of oral hypoglycemic drugs; Z79.82 Long term (current) use of aspirin
CPT/HCPCS: 71046; 80053; 84484; 85025; 93005; 93010; 96374; 99285-25; J0360

== ENCOUNTER 2021-07-02 15:14 | Inpatient (IN) | payer MEDICARE ==
[~2021-07-02] VITALS: Ht 177.8 cm; Wt 85.6 kg
[~2021-07-02 15:14] MED LIST changes: +NITR.4SL SL
[2021-07-02 16:06] LABS: BASOPHILS ABSOLUTE AUTO 0.06 K/mm3 (0.00-0.23); BASOPHILS PERCENT AUTO 1 % (0-2); EOSINOPHILS ABSOLUTE AUTO 0.24 K/mm3 (0.00-0.68); EOSINOPHILS PERCENT AUTO 3 % (0-6); Hemoglobin 11.4 g/dL (13.5-17.5); IMMATURE GRAN ABSOLUTE AUTO 0.02 K/mm3 (0.00-0.10); IMMATURE GRAN PERCENT AUTO 0 % (0-1); LYMPHOCYTES ABSOLUTE AUTO 1.94 K/mm3 (0.84-5.20); LYMPHOCYTES PERCENT AUTO 27 % (21-46); MONOCYTES ABSOLUTE AUTO 0.86 K/mm3 (0.16-1.47); MONOCYTES PERCENT AUTO 12 % (4-13); Mean Corpuscular HGB 29.2 pg (26.0-34.0); Mean Corpuscular HGB Conc 33.5 g/dL (31.5-36.5); Mean Corpuscular Volume 87 fL (80-100); Mean Platelet Volume 9.8 fL (9.1-12.4); NEUTROPHILS ABSOLUTE AUTO 4.11 K/mm3 (1.96-9.15); NEUTROPHILS PERCENT AUTO 57 % (41-73); Platelet Count 330 K/mm3 (150-400); RDW Coefficient Variation 13.2 % (11.7-14.2); RDW Standard Deviation 41.5 fL (35.1-46.3); Red Blood Cell Count 3.91 M/mm3 (4.30-5.90); White Blood Cell Count 7.23 K/mm3 (4.00-11.30)
[2021-07-02 16:24] LABS: Albumin, Blood 2.7 g/dL (3.4-5.0); Albumin/Globulin Ratio 0.7 (0.8-1.8); Bilirubin, Total 0.3 mg/dL (0.1-1.0); Bun/Creatinine Ratio 22.2 (12.0-20.0); Calcium, Blood 8.9 mg/dL (8.5-10.1); Creatinine, Blood 1.8 mg/dL (0.60-1.20); Globulin, Blood 3.8 g/dL (2.2-4.0); Potassium, Blood 4.6 mmol/L (3.5-5.5); Total Protein, Blood 6.5 g/dL (6.4-8.2); Troponin I 0.408 ng/mL (0.000-0.040)
[2021-07-02 18:23] LABS: U Amphetamine Screen Not Detected; U Barbituate Screen Not Detected; U Benzodiazapine Screen Not Detected; U Buprenorphine Screen Not Detected; U Cannabinoids Screen Not Detected; U Cocaine Screen Not Detected; U Methadone Screen Not Detected; U Methamphetamine Screen Not Detected; U Opiates Screen Not Detected; U Oxycodone Screen Not Detected; U Phencyclidine Screen Not Detected; U Propoxyphene Screen Not Detected
[2021-07-02 19:57] LABS: Anti-Xa UFH, PHA Monitoring <0.10 IU/mL; International Normalized Ratio 1.04; Prothrombin Time Results 10.9 Sec (9.7-11.5)
--- NOTE | 2021-07-02 21:39 | NUR ---
CARE ASSUMPTION PT ARRIVED TO THE UNIT REPORTING INTERMITTANT CP THAT RESOLVED W/O INTERVENTION/ O2 SATS >92% ON RM AIR. BP MODERATELY ELEVATED AND TELE SHOWING SR IN THE 90'S. HEPARIN GTT STARTED.
--- NOTE | 2021-07-02 22:04 | NUR ---
UPDATE PT REPORTING FEELING SOB W O2 SATS DOWN TO 88% SO PT PLACED ON 2L NC AND GIVEN SL NITRO X2 W RELIEF.
[2021-07-03 03:44] LABS: BASOPHILS ABSOLUTE AUTO 0.06 K/mm3 (0.00-0.23); BASOPHILS PERCENT AUTO 1 % (0-2); EOSINOPHILS ABSOLUTE AUTO 0.25 K/mm3 (0.00-0.68); EOSINOPHILS PERCENT AUTO 3 % (0-6); Hematocrit 33.3 % (37.0-53.0); Hemoglobin 11.2 g/dL (13.5-17.5); IMMATURE GRAN ABSOLUTE AUTO 0.02 K/mm3 (0.00-0.10); IMMATURE GRAN PERCENT AUTO 0 % (0-1); LYMPHOCYTES ABSOLUTE AUTO 2.21 K/mm3 (0.84-5.20); LYMPHOCYTES PERCENT AUTO 29 % (21-46); MONOCYTES ABSOLUTE AUTO 0.98 K/mm3 (0.16-1.47); MONOCYTES PERCENT AUTO 13 % (4-13); Mean Corpuscular HGB 29.4 pg (26.0-34.0); Mean Corpuscular HGB Conc 33.6 g/dL (31.5-36.5); Mean Corpuscular Volume 87 fL (80-100); Mean Platelet Volume 9.7 fL (9.1-12.4); NEUTROPHILS ABSOLUTE AUTO 3.99 K/mm3 (1.96-9.15); NEUTROPHILS PERCENT AUTO 53 % (41-73); Platelet Count 297 K/mm3 (150-400); RDW Coefficient Variation 13.2 % (11.7-14.2); RDW Standard Deviation 42.4 fL (35.1-46.3); Red Blood Cell Count 3.81 M/mm3 (4.30-5.90); White Blood Cell Count 7.51 K/mm3 (4.00-11.30)
--- NOTE | 2021-07-03 03:51 | NUR ---
update APPROX 0345 PT SITTING ON SIDE OF THE BED REPORTING CHEST PRESSURE AND INCREASED SOB. PT GIVEN ONE SL NITRO WHICH RELEIVED SYMPTOMS. BP WNL FOLLOWING NITRO.
[2021-07-03 04:06] LABS: Albumin, Blood 2.3 g/dL (3.4-5.0); Albumin/Globulin Ratio 0.6 (0.8-1.8); Bilirubin, Total 0.3 mg/dL (0.1-1.0); Bun/Creatinine Ratio 22.3 (12.0-20.0); Calcium, Blood 8.4 mg/dL (8.5-10.1); Creatinine, Blood 1.75 mg/dL (0.60-1.20); Potassium, Blood 4.9 mmol/L (3.5-5.5); Total Protein, Blood 6.3 g/dL (6.4-8.2); Troponin I 0.43 ng/mL (0.000-0.040)
--- NOTE | 2021-07-03 06:03 | NUR ---
TRAINING DEVELOPMENT SPECIALIST SUMMARY PT IS AXO X4 AND USES HIS CALL LIGHT TO MAKE NEEDS KNOWN. BP ELEVATED UPON ARRIVAL W REPORTS OF CHEST PRESSURE SO NITRO X2 GIVEN W RELIEF. LATER IN THE SHIFT PT AGIN REPORTING SOB W CHEST PRESSURE SO NITRO X1 GIVEN W RELIEF. PT MAKING LITTLE URINE OUTPUT THIS SHIFT. PT UP FORMOST OF THE NIGHT DUE TO ORTHOPNEA WHEN LYING DOWN. TELE SHOWING SR 90'S-ST 100'S THIS SHIFT. WILL REPORT TO ONCOMING RN.
--- NOTE | 2021-07-03 12:33 | NUR ---
Echocardiogram using 0.50ml of Definity contrast performed.
--- NOTE | 2021-07-03 18:37 | NUR ---
SHIFT SUMMARY: PT CONTINUES A&Ox4, ABLE TO MAKE NEEDS KNOWN, COOPERATIVE WITH CARE. PT MAINTAINS O2 SATS >92% ON RA, DENIES SOB. SR IN 90s ON MONITOR. ECHO COMPLETED AT BEDSIDE TODAY, PT TO BE NPO AT MIDNIGHT PENDING ANGIOGRAM TOMORROW. PER REPORT, PT MEDICATED FOR C/O CHEST PAIN THIS AM, PT DENIES CHEST T/OUT DAY. DIURESIS AND HEPARIN INFUSION CONTINUES, PT TOLERATING WELL. PT C/O NICOTINE PATCH NOT COVERING HIS USUAL TOBACCO USE, DR PRINCE NOTIFIED AND ORDER OBTAINED FOR NICORETTE GUM. AT THIS TIME, PT RESTING QUIETLY IN BED WITH TV ON AND CALL LIGHT WITHIN REACH. WILL CONTINUE TO MONITOR AND TREAT ACCORDINGLY UNTIL CHANGE OF SHIFT.
--- NOTE | 2021-07-04 01:01 | NUR ---
PATIENT HAS ONE IV ACCESS 20GAUGE RAC, NUMEROUS RN'S ATTEMPT TO GET ANOTHER ACCESS IN YESTERDAY MORNING, REQUESTED ULTRASOUND AND RN WAS UNSUCCESSFUL, PATIENT HAS HEPARIN GTT RUNNING IN THE ONE ACCESS, IV LASIX CHANGED TO PO, UNABLE TO GIVE IN ACCESS WITH HEPARIN RUNNING.
--- NOTE | 2021-07-04 03:48 | NUR ---
ALERT AND ORIENTATED, USES CALL LIGHT APPROPRIATELY, PERRLA NOTED RIGHT FACIAL DROOP, EDENTULOUS NO NUMBNESS AND/OR TINGLING REPORTED, GOOD EQUAL POLISHING WHEEL SETTER PUSHES AND PULLS NO DRIFTS NOTED, PATIENT REPORTS BILATERAL CHRONIC NEUROPATHY, LUNGS COARSE INSPIRATORY WHEEZING T/O LUNG SEN ON RA SAT> 92% RR 16-22 NO COUGH NOTED, ABDOMEN SOFT NONTENDER BT X 4, CONTINENT USES URINAL AT BEDSIDE, SKIN INTACT, LAC IV INFUSING HEPARIN NEXT XA DUE AT 0500 CURRENTLY THERAPEUTIC HEPARIN RUNNING AT 32.3 ML/HR, UNABLE TO GET SECOND ACCESS IN, CHARGE AWARE, CALLED AND IVP LASIX CHANGED TO PO, PATIENT C/O OF PAIN 01/16 BACK X 1 RECEIVED TRAMADOL PO RESTING COMFORTABLY IN BED THROUGHOUT REST OF EVENING.
[2021-07-04 05:32] LABS: BASOPHILS ABSOLUTE AUTO 0.06 K/mm3 (0.00-0.23); BASOPHILS PERCENT AUTO 1 % (0-2); EOSINOPHILS ABSOLUTE AUTO 0.26 K/mm3 (0.00-0.68); EOSINOPHILS PERCENT AUTO 4 % (0-6); Hematocrit 35.7 % (37.0-53.0); Hemoglobin 11.8 g/dL (13.5-17.5); IMMATURE GRAN ABSOLUTE AUTO 0.02 K/mm3 (0.00-0.10); IMMATURE GRAN PERCENT AUTO 0 % (0-1); LYMPHOCYTES ABSOLUTE AUTO 2.24 K/mm3 (0.84-5.20); LYMPHOCYTES PERCENT AUTO 35 % (21-46); MONOCYTES ABSOLUTE AUTO 0.72 K/mm3 (0.16-1.47); MONOCYTES PERCENT AUTO 11 % (4-13); Mean Corpuscular HGB 29.3 pg (26.0-34.0); Mean Corpuscular HGB Conc 33.1 g/dL (31.5-36.5); Mean Corpuscular Volume 89 fL (80-100); Mean Platelet Volume 10.3 fL (9.1-12.4); NEUTROPHILS ABSOLUTE AUTO 3.03 K/mm3 (1.96-9.15); NEUTROPHILS PERCENT AUTO 48 % (41-73); Platelet Count 288 K/mm3 (150-400); RDW Coefficient Variation 13.2 % (11.7-14.2); RDW Standard Deviation 42.6 fL (35.1-46.3); Red Blood Cell Count 4.03 M/mm3 (4.30-5.90); White Blood Cell Count 6.33 K/mm3 (4.00-11.30)
[2021-07-04 06:15] LABS: Bun/Creatinine Ratio 21.7 (12.0-20.0); Calcium, Blood 8.3 mg/dL (8.5-10.1); Creatinine, Blood 1.84 mg/dL (0.60-1.20); Potassium, Blood 4.9 mmol/L (3.5-5.5)
[2021-07-04 11:04] LABS: Influenza A, PCR NEGATIVE (NEGATIVE); Influenza B, PCR NEGATIVE (NEGATIVE); Resp Syncytial Virus, PCR NEGATIVE (NEGATIVE); SARS-Cov-2 (COVID-19) PCR, MMC NEGATIVE (NEGATIVE)
--- NOTE | 2021-07-04 16:51 | NUR ---
TR BAND RECOVERED NO ACIVE BLEEDING NOTED, REPORT CALLED TO ALESSIO AT [facility]
--- NOTE | 2021-07-04 17:37 | NUR ---
Spiritual Care Visit. Pt. requested a Numerical Control Programmer prior to transport to [place]. Pt, was alert and sitting up on the side of his bed. Pt. was unsettled about the transport and procedure. Listened Empathetically. Pt. verbalized his confidence in his dhara, but was anxious about what is next. Provided a calming presence, and prayed with pt. Pt. displayed evidence of improved hope, and verbalized gratitude for the prayer and the visit.
--- NOTE | 2021-07-04 17:57 | NUR ---
PT OTD WITH EMS, HEPARIN INFUSING AT 19U/KG/HR PER LAST ORDERED DOSING WEIGHT WHICH IS ALSO CLEARED WITH CARD STRIPPER DENISE. REPORT HAS PREVIOUSLY BEEN CALLED FOR ALESSIO AT [facility]
== END 2021-07-04 17:59 | disposition short-term general hospital (02) | DRG 280 ==
LOC: ER 15:14 → PCU 20:39
PROVIDERS: Family Medicine; Internal Medicine Cardiovascular Disease; Physician Assistant; ADMIT Internal Medicine
PROC: 4A023N7 Measurement of Cardiac Sampling and Pressure, Left Heart, Percutaneous Approach (ICD-10-PCS; principal; 2021-07-04)
PROC: B2111ZZ Fluoroscopy of Multiple Coronary Arteries using Low Osmolar Contrast (ICD-10-PCS; 2021-07-04)
DX: I21.4 Non-ST elevation (NSTEMI) myocardial infarction (principal); I50.23 Acute on chronic systolic (congestive) heart failure; I50.21 Acute systolic (congestive) heart failure; I13.0 Hypertensive heart and chronic kidney disease with heart failure and stage 1 through stage 4 chronic kidney disease, or unspecified chronic kidney disease; N18.9 Chronic kidney disease, unspecified; G89.29 Other chronic pain; E11.22 Type 2 diabetes mellitus with diabetic chronic kidney disease; M54.9 Dorsalgia, unspecified; Z88.8 Allergy status to other drugs, medicaments and biological substances; E66.9 Obesity, unspecified; B18.2 Chronic viral hepatitis C; Z87.11 Personal history of peptic ulcer disease; F17.210 Nicotine dependence, cigarettes, uncomplicated; Z79.899 Other long term (current) drug therapy; Z79.82 Long term (current) use of aspirin; Z20.822 Contact with and (suspected) exposure to COVID-19
CPT/HCPCS: 0241U; 36415; 71046; 76937; 80048; 80053; 82947; 83880; 84484; 85025; 85347; 85520; 85610; 93005; 93010; 93458; 99152; 99153; 99285-25; A9270; C1769; C1894; C8929; J1644; J1815; J1940; J2250; J3010; J7030; J7050; Q9957; Q9967

== ENCOUNTER 2021-07-27 14:07 | Emergency (ER) | payer MEDICARE ==
[~2021-07-27] VITALS: Ht 177.8 cm; Wt 91.8 kg
[2021-07-27 14:46] LABS: BASOPHILS ABSOLUTE AUTO 0.12 K/mm3 (0.00-0.23); BASOPHILS PERCENT AUTO 1 % (0-2); EOSINOPHILS ABSOLUTE AUTO 0.34 K/mm3 (0.00-0.68); EOSINOPHILS PERCENT AUTO 4 % (0-6); Hematocrit 25.9 % (37.0-53.0); Hemoglobin 8.3 g/dL (13.5-17.5); IMMATURE GRAN ABSOLUTE AUTO 0.04 K/mm3 (0.00-0.10); IMMATURE GRAN PERCENT AUTO 0 % (0-1); LYMPHOCYTES ABSOLUTE AUTO 1.96 K/mm3 (0.84-5.20); LYMPHOCYTES PERCENT AUTO 21 % (21-46); MONOCYTES ABSOLUTE AUTO 0.95 K/mm3 (0.16-1.47); MONOCYTES PERCENT AUTO 10 % (4-13); Mean Corpuscular HGB 28.8 pg (26.0-34.0); Mean Corpuscular Volume 90 fL (80-100); Mean Platelet Volume 8.7 fL (9.1-12.4); NEUTROPHILS ABSOLUTE AUTO 5.88 K/mm3 (1.96-9.15); NEUTROPHILS PERCENT AUTO 63 % (41-73); Platelet Count 609 K/mm3 (150-400); RDW Coefficient Variation 13.4 % (11.7-14.2); Red Blood Cell Count 2.88 M/mm3 (4.30-5.90); White Blood Cell Count 9.29 K/mm3 (4.00-11.30)
[2021-07-27 15:10] LABS: Albumin, Blood 2.5 g/dL (3.4-5.0); Albumin/Globulin Ratio 0.5 (0.8-1.8); Bilirubin, Total 0.2 mg/dL (0.1-1.0); Bun/Creatinine Ratio 16.6 (12.0-20.0); Calcium, Blood 8.7 mg/dL (8.5-10.1); Creatinine, Blood 1.81 mg/dL (0.60-1.20); Potassium, Blood 5.2 mmol/L (3.5-5.5); Total Protein, Blood 7.5 g/dL (6.4-8.2)
== END 2021-07-27 17:31 | disposition left against medical advice (07) ==
LOC: ER 14:07
PROVIDERS: Physician Assistant
DX: I10 Essential (primary) hypertension (principal); Z53.21 Procedure and treatment not carried out due to patient leaving prior to being seen by health care provider
CPT/HCPCS: 36415; 71046; 80053; 84484; 85025; 93005; 93010; 99284-25; A9270

== ENCOUNTER 2022-03-06 01:34 | Inpatient (IN) | payer MEDICARE ==
[~2022-03-06] VITALS: Ht 177.8 cm; Wt 81.7 kg
[~2022-03-06 01:34] MED LIST changes: +1/2 NS 250ml250 ML; +ATOR10 PO; +Carvedilol12.5 MG PO; +LOKELMA PO; +NICO2 PO
[2022-03-06 02:17] LABS: BASOPHILS ABSOLUTE AUTO 0.05 K/mm3 (0.00-0.23); BASOPHILS PERCENT AUTO 1 % (0-2); EOSINOPHILS ABSOLUTE AUTO 0.22 K/mm3 (0.00-0.68); EOSINOPHILS PERCENT AUTO 3 % (0-6); Hematocrit 26.5 % (37.0-53.0); Hemoglobin 8.7 g/dL (13.5-17.5); IMMATURE GRAN ABSOLUTE AUTO 0.03 K/mm3 (0.00-0.10); IMMATURE GRAN PERCENT AUTO 0 % (0-1); LYMPHOCYTES ABSOLUTE AUTO 1.61 K/mm3 (0.84-5.20); LYMPHOCYTES PERCENT AUTO 19 % (21-46); MONOCYTES ABSOLUTE AUTO 0.83 K/mm3 (0.16-1.47); MONOCYTES PERCENT AUTO 10 % (4-13); Mean Corpuscular HGB 30.2 pg (26.0-34.0); Mean Corpuscular HGB Conc 32.8 g/dL (31.5-36.5); Mean Corpuscular Volume 92 fL (80-100); Mean Platelet Volume 9.3 fL (9.1-12.4); NEUTROPHILS ABSOLUTE AUTO 5.85 K/mm3 (1.96-9.15); NEUTROPHILS PERCENT AUTO 68 % (41-73); Platelet Count 322 K/mm3 (150-400); RDW Coefficient Variation 13.9 % (11.7-14.2); RDW Standard Deviation 46.8 fL (35.1-46.3); Red Blood Cell Count 2.88 M/mm3 (4.30-5.90); White Blood Cell Count 8.59 K/mm3 (4.00-11.30)
[2022-03-06 02:21] LABS: Albumin, Blood 2.7 g/dL (3.4-5.0); Albumin/Globulin Ratio 0.6 (0.8-1.8); Bilirubin, Total 0.3 mg/dL (0.1-1.0); Calcium, Blood 8.6 mg/dL (8.5-10.1); Creatinine, Blood 4.68 mg/dL (0.60-1.20); Globulin, Blood 4.5 g/dL (2.2-4.0); Potassium, Blood 4.7 mmol/L (3.5-5.5); Total Protein, Blood 7.2 g/dL (6.4-8.2)
--- NOTE | 2022-03-06 18:22 | NUR ---
SHIFT SUMMARY PT IS NON COMPLAINT WITH OXYGEN, BUT CALLS REPEATEDLY FOR BEING SOB. CRACKLES IN BASES. MAINTAINS 98% ON ROOM O2. HE IS INDEPENDENT IN THE ROOM FOR BATHROOM AND URINAL. PALLIATIVE CONSULLT TODAY FOR PT POSSIBLY BEING PLACED DIALYSIS. NEW POWERGLIDE PLACED IN LEFT UPPER ARM. FLUSHED AND IV LASIX GIVEN. BED IN LOWEST POSITION AND CALL LIGHT IN REACH.
[2022-03-06] MEDS ORDERED: Norco 5-325 Ta1 EACH PO (21:42)
[2022-03-06] MEDS ORDERED: LOSARTAN POTAS100 M1 PO (21:43)
[2022-03-06] MEDS ORDERED: ATOR40TA PO (21:44)
[2022-03-06] MEDS ORDERED: CARV25 PO (21:45)
[2022-03-06] MEDS ORDERED: KLOR-CON 1010 ME1 PO (21:46)
[2022-03-06] MEDS ORDERED: FURO80 PO (21:47)
--- NOTE | 2022-03-06 23:40 | NUR ---
CARE ASSUMPTION: PATIENT IN BED WITH 2L NC IN PLACE. EDUCATED PATIENT ON HIGH BP AND REASON FOR APRESOLINE. PATIENT REFUSED APRESOLINE BECAUSE "IT MADE ME REALLY SICK LAST TIME." EDUCATED ON POOR OUTCOMES OF SUSTAINING HIGH BP. PATIENT CONSENTED TO APRESOLINE. MEDICATED PER EMAR. REPOSITIONED PATIENT FOR COMFORT. CALL LIGHT IN REACH.
--- NOTE | 2022-03-07 04:17 | NUR ---
SHIFT SUMMARY: PATIENT VS WNL FOLLOWING APRESOLINE ADMNISTRATION. SLEPT WELL T/O SHIFT WITH [address] CALLS APPROPRIATELY. EDUCATED ON POSITIONAL BREATHING AND MEDICATIONS. PATIENT DENIES N/V/D/CHEST PAIN, REPORTS SOB WITH EXERTION. VSS THIS AM, REPORTS "BEST SLEEP I'VE GOTTEN IN THIS HOSPITAL SO FAR." NICOTINE PATCH REMOVED AT 0430. MEDICATED PER EMAR. BED LOW WITH CALL LIGHT IN REACH.
[2022-03-07 06:22] LABS: Albumin, Blood 2.4 g/dL (3.4-5.0); Anion Gap 9 mmol/L (6-16); Blood Urea Nitrogen 60 mg/dL (8-24); Bun/Creatinine Ratio 12.4 (12.0-20.0); CO2, Blood 21 mmol/L (21-32); Calcium, Blood 8.4 mg/dL (8.5-10.1); Chloride, Blood 110 mmol/L (98-108); Creatinine, Blood 4.82 mg/dL (0.60-1.20); Glomerular Filtration Rate 14 (60-); Glucose, Blood 119 mg/dL (70-99); Phosphorus, Blood 5.2 mg/dL (2.5-4.9); Sodium, Blood 140 mmol/L (136-145)
[2022-03-07] MEDS ORDERED: FURO20 PO (11:54)
--- NOTE | 2022-03-07 13:46 | NUR ---
DISCHARGE INSTRUCTIONS REVIEWED WITH PT. POWERGLIDE DC'D INTACT. PT INDTRUCTED ON HEART HEALTHY AND RENAL DIET WELL FLUID RESTRICTION PT VOICED UNDERSTANDING. [facility]. PT DC'D HOME 1336 WITH FRIEND.
--- NOTE | 2022-03-07 17:08 | NUR ---
DR MEDINA CALLED AND REPORTED PT NEEDS TO HAVE OUTPATIENT BLOOD CULTURES AND MOUNA COMPLETED, HARD SCRIPTS WRITTEN. ORDERS FAXED TO [facility]/ SCHEDULING AND CALLED AND SPOKE WITH [facility] AND MOST. CALLED AND SPOKE WITH PT ABOUT NEED TO GET MOUNA AND LABS COMPLETED AND WHERE TO GO FOR THE LAB.
== END 2022-03-07 13:36 | disposition home or self-care (01) | DRG 291 ==
LOC: ER 01:34 → ERHOLD 01:35 → MEDS 01:35
PROVIDERS: Internal Medicine; Student in an Organized Health Care Education/Training Program; ADMIT Internal Medicine
DX: I13.0 Hypertensive heart and chronic kidney disease with heart failure and stage 1 through stage 4 chronic kidney disease, or unspecified chronic kidney disease (principal); I50.33 Acute on chronic diastolic (congestive) heart failure; N17.9 Acute kidney failure, unspecified; N18.4 Chronic kidney disease, stage 4 (severe); E78.5 Hyperlipidemia, unspecified; G89.29 Other chronic pain; D63.1 Anemia in chronic kidney disease; M54.9 Dorsalgia, unspecified; I16.0 Hypertensive urgency; B19.20 Unspecified viral hepatitis C without hepatic coma; F17.210 Nicotine dependence, cigarettes, uncomplicated; J44.9 Chronic obstructive pulmonary disease, unspecified; E11.22 Type 2 diabetes mellitus with diabetic chronic kidney disease; I25.2 Old myocardial infarction; Z98.890 Other specified postprocedural states; Z88.8 Allergy status to other drugs, medicaments and biological substances; Z79.82 Long term (current) use of aspirin; Z79.899 Other long term (current) drug therapy
CPT/HCPCS: 36415; 71045; 80053; 80069; 82947; 83880; 84484; 85025; 93005; 93010; 93306; 94640; 94760; 96374; 96375; 99285-25; A9270; C1751; J0360; J1940

== ENCOUNTER 2022-05-02 15:28 | Emergency (ER) | payer MEDICARE ==
[~2022-05-02] VITALS: Ht 177.8 cm; Wt 90.7 kg
[~2022-05-02 15:28] MED LIST changes: +ATOR40TA PO; +CARV25 PO; +FURO20 PO; +FURO80 PO; +KLOR-CON 1010 ME1 PO; +LOSARTAN POTAS100 M1 PO
[2022-05-02 16:08] LABS: BASOPHILS ABSOLUTE AUTO 0.06 K/mm3 (0.00-0.23); BASOPHILS PERCENT AUTO 1 % (0-2); EOSINOPHILS ABSOLUTE AUTO 0.26 K/mm3 (0.00-0.68); EOSINOPHILS PERCENT AUTO 3 % (0-6); Hematocrit 24.8 % (37.0-53.0); Hemoglobin 7.9 g/dL (13.5-17.5); IMMATURE GRAN ABSOLUTE AUTO 0.04 K/mm3 (0.00-0.10); IMMATURE GRAN PERCENT AUTO 0 % (0-1); LYMPHOCYTES ABSOLUTE AUTO 1.18 K/mm3 (0.84-5.20); LYMPHOCYTES PERCENT AUTO 13 % (21-46); MONOCYTES ABSOLUTE AUTO 0.84 K/mm3 (0.16-1.47); MONOCYTES PERCENT AUTO 9 % (4-13); Mean Corpuscular HGB 29.5 pg (26.0-34.0); Mean Corpuscular HGB Conc 31.9 g/dL (31.5-36.5); Mean Corpuscular Volume 93 fL (80-100); NEUTROPHILS ABSOLUTE AUTO 6.71 K/mm3 (1.96-9.15); NEUTROPHILS PERCENT AUTO 74 % (41-73); Platelet Count 337 K/mm3 (150-400); RDW Coefficient Variation 13.5 % (11.7-14.2); RDW Standard Deviation 45.6 fL (35.1-46.3); Red Blood Cell Count 2.68 M/mm3 (4.30-5.90); White Blood Cell Count 9.09 K/mm3 (4.00-11.30)
[2022-05-02 16:25] LABS: Albumin, Blood 2.6 g/dL (3.4-5.0); Albumin/Globulin Ratio 0.5 (0.8-1.8); Bilirubin, Total 0.3 mg/dL (0.1-1.0); Bun/Creatinine Ratio 9.2 (12.0-20.0); Calcium, Blood 8.2 mg/dL (8.5-10.1); Creatinine, Blood 5.63 mg/dL (0.60-1.20); Potassium, Blood 4.7 mmol/L (3.5-5.5); Total Protein, Blood 7.6 g/dL (6.4-8.2)
[2022-05-02 19:49] LABS: Influenza A, PCR NEGATIVE (NEGATIVE); Influenza B, PCR NEGATIVE (NEGATIVE); Resp Syncytial Virus, PCR NEGATIVE (NEGATIVE); SARS-Cov-2 (COVID-19) PCR, MMC NEGATIVE (NEGATIVE)
== END 2022-05-02 20:17 | disposition home or self-care (01) ==
LOC: ER 15:28
PROVIDERS: Physician Assistant; Student in an Organized Health Care Education/Training Program
DX: I50.20 Unspecified systolic (congestive) heart failure (principal); D64.9 Anemia, unspecified; E11.22 Type 2 diabetes mellitus with diabetic chronic kidney disease; N18.9 Chronic kidney disease, unspecified; I25.2 Old myocardial infarction; J44.9 Chronic obstructive pulmonary disease, unspecified; E78.5 Hyperlipidemia, unspecified; F17.210 Nicotine dependence, cigarettes, uncomplicated; Z20.822 Contact with and (suspected) exposure to COVID-19; Z88.8 Allergy status to other drugs, medicaments and biological substances; Z79.899 Other long term (current) drug therapy; Z79.82 Long term (current) use of aspirin
CPT/HCPCS: 0241U; 36415; 71046; 80053; 83690; 83880; 84484; 85025; 93005; 93010; A9270; C9113; J1940

== ENCOUNTER → 2022-05-13 | Outpatient (CLI) | payer MEDICARE ==
[2022-05-13 10:38] LABS: BASOPHILS ABSOLUTE AUTO 0.03 K/mm3 (0.00-0.23); BASOPHILS PERCENT AUTO 1 % (0-2); EOSINOPHILS ABSOLUTE AUTO 0.12 K/mm3 (0.00-0.68); EOSINOPHILS PERCENT AUTO 2 % (0-6); Hematocrit 23.2 % (37.0-53.0); Hemoglobin 7.5 g/dL (13.5-17.5); IMMATURE GRAN ABSOLUTE AUTO 0.02 K/mm3 (0.00-0.10); IMMATURE GRAN PERCENT AUTO 0 % (0-1); LYMPHOCYTES ABSOLUTE AUTO 0.69 K/mm3 (0.84-5.20); LYMPHOCYTES PERCENT AUTO 11 % (21-46); MONOCYTES ABSOLUTE AUTO 0.89 K/mm3 (0.16-1.47); MONOCYTES PERCENT AUTO 14 % (4-13); Mean Corpuscular HGB 29.9 pg (26.0-34.0); Mean Corpuscular HGB Conc 32.3 g/dL (31.5-36.5); Mean Corpuscular Volume 92 fL (80-100); Mean Platelet Volume 9.4 fL (9.1-12.4); NEUTROPHILS PERCENT AUTO 73 % (41-73); Platelet Count 316 K/mm3 (150-400); RDW Coefficient Variation 14.1 % (11.7-14.2); RDW Standard Deviation 47.8 fL (35.1-46.3); Red Blood Cell Count 2.51 M/mm3 (4.30-5.90); White Blood Cell Count 6.55 K/mm3 (4.00-11.30)
[2022-05-13 11:21] LABS: Albumin, Blood 2.5 g/dL (3.4-5.0); Anion Gap 8 mmol/L (6-16); Blood Urea Nitrogen 70 mg/dL (8-24); CO2, Blood 18 mmol/L (21-32); Calcium, Blood 8.3 mg/dL (8.5-10.1); Chloride, Blood 111 mmol/L (98-108); Creatinine, Blood 5.82 mg/dL (0.60-1.20); Ferritin, Serum 80 ng/mL (26-388); Glomerular Filtration Rate 11 (60-); Glucose, Blood 111 mg/dL (70-99); Iron Serum 26 ug/dL (65-175); Percent Saturation 12.7 % (20.0-50.0); Phosphorus, Blood 4.9 mg/dL (2.5-4.9); Potassium, Blood 5.5 mmol/L (3.5-5.5); Sodium, Blood 137 mmol/L (136-145); Total Iron Binding Capacity 204 ug/dL (250-450)
[2022-05-13 11:33] LABS: Creatinine, Urine Random 74.6 mg/dL (27.00-270.00)
[2022-05-13 11:36] LABS: Protein, Urine Random 782.7 mg/dL (0.0-11.9); Protein/Creat Ratio, Ur Random 10.5
== END | disposition home or self-care (01) ==
LOC: LAB SHORT 09:36 → LAB 09:36
PROVIDERS: Internal Medicine Nephrology
DX: N18.5 Chronic kidney disease, stage 5 (principal); D63.1 Anemia in chronic kidney disease; E55.9 Vitamin D deficiency, unspecified
CPT/HCPCS: 36415; 80069; 82306; 82570; 82728; 83540; 83550; 83970; 84156; 85025

== ENCOUNTER 2022-05-28 10:32 | Day surgery (SDC) | payer MEDICARE ==
[~2022-05-28] VITALS: Ht 177.8 cm; Wt 102.0 kg
--- NOTE | 2022-05-28 14:12 | NUR ---
pt sitting up in chair eating lunch.
--- NOTE | 2022-05-28 14:54 | NUR ---
PT GIVEN DC INSTRUCTIONS AND VERBALIZED UNDERSTANDING. IV OUT. PT CHANGED INTO CLOTHES. PT AMBULATED TO RESTROOM. PT TAKEN TO [facility] VIA WC WHERE MAGDA WILL TAKE PT HOME.
== END 2022-05-28 14:45 | disposition home or self-care (01) ==
LOC: MHTC 10:32
DX: I12.0 Hypertensive chronic kidney disease with stage 5 chronic kidney disease or end stage renal disease (principal); N18.6 End stage renal disease; I25.10 Atherosclerotic heart disease of native coronary artery without angina pectoris; Z95.1 Presence of aortocoronary bypass graft; E11.22 Type 2 diabetes mellitus with diabetic chronic kidney disease; F17.210 Nicotine dependence, cigarettes, uncomplicated
CPT/HCPCS: 76937; C1750; C1769; C1894; J0360; J1644; J7040

== ENCOUNTER 2022-05-29 17:05 | Emergency (ER) | payer MEDICARE ==
[~2022-05-29] VITALS: Ht 177.8 cm; Wt 90.7 kg
== END 2022-05-29 19:45 | disposition home or self-care (01) ==
LOC: ER 17:05
DX: Z45.2 Encounter for adjustment and management of vascular access device (principal); E11.9 Type 2 diabetes mellitus without complications; I50.9 Heart failure, unspecified; F17.210 Nicotine dependence, cigarettes, uncomplicated; Z88.8 Allergy status to other drugs, medicaments and biological substances; Z79.899 Other long term (current) drug therapy; Z79.82 Long term (current) use of aspirin
CPT/HCPCS: 99282

== ENCOUNTER 2022-09-18 08:53 | Day surgery (SDC) | payer MEDICARE ==
[~2022-09-18] VITALS: Ht 177.8 cm; Wt 83.0 kg
[2022-09-18] VITALS (16 sets, daily range): BP systolic 150–207; BP diastolic 88–137
[2022-09-18] MEDS ORDERED: Ventolin5 MG/1 ML (09:20)
--- NOTE | 2022-09-18 12:10 | NUR ---
PATIENT ARRIVED TO RECOVERY ROOM AWAKE AND CONVERSING APPROPRIATELY. L ELLIPSYS SITE C/D/I SOFT/NONTENDER WITH THRILL FELT. BP ELEVATED, OTHER VS WNL.
--- NOTE | 2022-09-18 12:20 | NUR ---
PT SITTING UP IN BED EATING LUNCH. PT BEGAN COMPLAINING OF FEELING NAUSEATED, SOME VOMITING NOTED. VO OF IV ZOFRAN GIVEN WITH RELIEF. VSS ON ROOM AIR. L ELLIPSYS SIGHT C/D/I, NO EVIDENCE OF BLEEDING.
[2022-09-18] MEDS ORDERED: CLOP75 PO (12:54)
--- NOTE | 2022-09-18 13:15 | NUR ---
NEW MEDICATION CALLED TO PATIENTS PREFERRED PHARMACY.
--- NOTE | 2022-09-18 13:34 | NUR ---
DISCHARGE INSTRUCTIONS AND NEW MEDICATION REVIEWED WITH PATIENT. ALL QUESTIONS WERE ANSWERED. DOCTORS OFFICE CALLED FOR FOLLOW UP APPOINTMENT. BP ELEVATED, PT INSTRUCTED ON THE IMPORTANCE OF TAKING HIS PRESCRIBED HOME MEDICATIONS. Joseluis PICKETT C/D/I, ROHINI ROGERS PRESENT.
--- NOTE | 2022-09-18 14:04 | NUR ---
PATIENT DISCHARGED HOME AT THIS TIME. DISCHARGE PAPERWORK AND PATIENT BELONGINGS LEFT WITH PATIENT. L ELLIPSYS FISTULA SITE C/D/I, WITH THRILL PRESENT. PATIENT NAUSEA SUBSIDED. PIV REMOVED WITHOUT DIFFICULTY CATHETER INTACT. PT DISCHARGED HOME VIA WHEELCHAIR, PATIENTS FRIEND OLIVIA ABLE TO TRANSPORT PATIENT HOME.
== END 2022-09-18 15:08 | disposition home or self-care (01) ==
LOC: MHTC 08:53
DX: I13.2 Hypertensive heart and chronic kidney disease with heart failure and with stage 5 chronic kidney disease, or end stage renal disease (principal); N18.6 End stage renal disease; I25.10 Atherosclerotic heart disease of native coronary artery without angina pectoris; Z99.2 Dependence on renal dialysis; E11.22 Type 2 diabetes mellitus with diabetic chronic kidney disease; F17.210 Nicotine dependence, cigarettes, uncomplicated
CPT/HCPCS: 36837; 64415; 76937; 99152; 99153; A9270; C1725; C1769; C1889; C1894; J1644; J2250; J2405; J3010; J7030; J7050

== ENCOUNTER 2022-12-18 07:56 | Day surgery (SDC) | payer MEDICARE ==
[2022-12-18] VITALS (7 sets, daily range): BP systolic 164–177; BP diastolic 93–110
[~2022-12-18] VITALS: Ht 177.8 cm; Wt 82.6 kg
[~2022-12-18 07:56] MED LIST changes: +CLOP75 PO; +Ventolin5 MG/1 ML
--- NOTE | 2022-12-18 11:19 | NUR ---
TYLENOL 650 MG GIVEN FOR LEFT HAND DISCOMFORT
--- NOTE | 2022-12-18 12:30 | NUR ---
PT STILL C/O HAND PAIN, NORCO 1 TAB GIVEN PER ORDER.
--- NOTE | 2022-12-18 13:06 | NUR ---
pt anxious to be discharged. tr band has had all air released and pt dressed with assistance. tr band removed, site stbale. cloth dot placed and arm board placed to left forearm. all discharge instructions reviewed with pt, verbalizes understanding of instructions. saline lock removed with catheter intact. pt to private vehicle per w/c with one staff.
== END 2022-12-18 13:21 | disposition home or self-care (01) ==
LOC: MHTC 07:56
DX: I13.2 Hypertensive heart and chronic kidney disease with heart failure and with stage 5 chronic kidney disease, or end stage renal disease (principal); E11.22 Type 2 diabetes mellitus with diabetic chronic kidney disease; I50.9 Heart failure, unspecified; N18.6 End stage renal disease; T82.898A Other specified complication of vascular prosthetic devices, implants and grafts, initial encounter; E11.42 Type 2 diabetes mellitus with diabetic polyneuropathy; E78.5 Hyperlipidemia, unspecified; F20.0 Paranoid schizophrenia; F17.210 Nicotine dependence, cigarettes, uncomplicated; Z88.8 Allergy status to other drugs, medicaments and biological substances; Z95.1 Presence of aortocoronary bypass graft
CPT/HCPCS: 36902; 37607; 76937; 99152; 99153; A9270; C1725; C1769; C1887; C1894; J1644; J2250; J3010; J7030; Q9967

== ENCOUNTER 2023-02-05 08:29 | Day surgery (SDC) | payer MEDICARE ==
[~2023-02-05] VITALS: Ht 177.8 cm; Wt 82.0 kg
[2023-02-05] VITALS (12 sets, daily range): BP systolic 172–194; BP diastolic 90–111
[~2023-02-05 08:29] MED LIST changes: +HYDR1TAB94 PO
[2023-02-05] MEDS ORDERED: LOKELMA10 GM (09:09)
--- NOTE | 2023-02-05 09:21 | NUR ---
Dr Campos in to see patient pre procedue 10 mg IV hydralazine ordered for BP control.
--- NOTE | 2023-02-05 09:35 | NUR ---
10 MG IV HYDRALAZINE GIVEN FOR BP CONTROL
--- NOTE | 2023-02-05 11:15 | NUR ---
PATIENT RETURNED TO [facility] RECOVERY ROOM FROM DIRECTOR [employer]. LEFT RADIAL ARTERY tr BAND IN PLACE NO SWELLING NO BLEEDING.
--- NOTE | 2023-02-05 11:57 | NUR ---
PATIENT SITING UP IN BED EATING LUNCH
--- NOTE | 2023-02-05 12:59 | NUR ---
REMOVAL OF AIR FROM TR BAND STARTED
--- NOTE | 2023-02-05 13:35 | NUR ---
AIR OUT OF TR BAND SITYE REMAINS UNCHANGED.
--- NOTE | 2023-02-05 14:10 | NUR ---
left upper arm dressing D&I. no hematoma, no bleeding. appears that skin has a dimple in it from the sutures for the banding. asked Rayo Romero to assess. He feels its fine. He also asked Gala Qiu to assess and feels its good as well. patient instructed to keep dressing in place to 2 to 3 days and reviewed woud precautions with him. He verbalized understanding
--- NOTE | 2023-02-05 14:20 | NUR ---
patient verbalized understanding of discharge instructions and precautions. no further questions. iv site dced witha catheter inatct. TR band removed site soft and nontender. no hematoma, no bleeding. cloth dot paced and wrist board placed. patient transferred via wheelchair to waiting car friend driving.
== END 2023-02-05 22:45 | disposition home or self-care (01) ==
LOC: MHTC 08:29
DX: T82.898A Other specified complication of vascular prosthetic devices, implants and grafts, initial encounter (principal); I13.2 Hypertensive heart and chronic kidney disease with heart failure and with stage 5 chronic kidney disease, or end stage renal disease; N18.6 End stage renal disease; E78.5 Hyperlipidemia, unspecified; E11.22 Type 2 diabetes mellitus with diabetic chronic kidney disease; Z99.2 Dependence on renal dialysis; I25.10 Atherosclerotic heart disease of native coronary artery without angina pectoris; Z95.1 Presence of aortocoronary bypass graft; F17.210 Nicotine dependence, cigarettes, uncomplicated; Z88.8 Allergy status to other drugs, medicaments and biological substances; I50.9 Heart failure, unspecified; Z79.84 Long term (current) use of oral hypoglycemic drugs; E11.42 Type 2 diabetes mellitus with diabetic polyneuropathy
CPT/HCPCS: 36902; 37607; 76937; 99152; 99153; A9270; C1725; C1769; C1887; C1894; J0360; J1644; J2250; J3010; J7030; Q9967

== ENCOUNTER 2023-02-08 17:25 | Emergency (ER) | payer MEDICARE ==
[~2023-02-08] VITALS: Ht 177.8 cm; Wt 82.1 kg
[~2023-02-08 17:25] MED LIST changes: +LOKELMA10 GM
[2023-02-08 17:49] LABS: BASOPHILS ABSOLUTE AUTO 0.05 K/mm3 (0.00-0.23); BASOPHILS PERCENT AUTO 1 % (0-2); EOSINOPHILS ABSOLUTE AUTO 0.14 K/mm3 (0.00-0.68); EOSINOPHILS PERCENT AUTO 2 % (0-6); Hematocrit 32.6 % (37.0-53.0); Hemoglobin 10.9 g/dL (13.5-17.5); IMMATURE GRAN ABSOLUTE AUTO 0.01 K/mm3 (0.00-0.10); IMMATURE GRAN PERCENT AUTO 0 % (0-1); LYMPHOCYTES ABSOLUTE AUTO 0.98 K/mm3 (0.84-5.20); LYMPHOCYTES PERCENT AUTO 14 % (21-46); MONOCYTES ABSOLUTE AUTO 0.94 K/mm3 (0.16-1.47); MONOCYTES PERCENT AUTO 14 % (4-13); Mean Corpuscular HGB 31.2 pg (26.0-34.0); Mean Corpuscular HGB Conc 33.4 g/dL (31.5-36.5); Mean Corpuscular Volume 93 fL (80-100); Mean Platelet Volume 8.9 fL (9.1-12.4); NEUTROPHILS ABSOLUTE AUTO 4.73 K/mm3 (1.96-9.15); NEUTROPHILS PERCENT AUTO 69 % (41-73); Platelet Count 227 K/mm3 (150-400); RDW Coefficient Variation 14.3 % (11.7-14.2); RDW Standard Deviation 49.2 fL (35.1-46.3); Red Blood Cell Count 3.49 M/mm3 (4.30-5.90); White Blood Cell Count 6.85 K/mm3 (4.00-11.30)
[2023-02-08 18:08] LABS: Albumin, Blood 3.6 g/dL (3.4-5.0); Albumin/Globulin Ratio 0.9 (0.8-1.8); Bilirubin, Total 0.6 mg/dL (0.1-1.0); Bun/Creatinine Ratio 4.9 (12.0-20.0); Creatinine, Blood 7.81 mg/dL (0.60-1.20); Potassium, Blood 5.1 mmol/L (3.5-5.5); Total Protein, Blood 7.6 g/dL (6.4-8.2)
[2023-02-08 21:39] VITALS: BP 200/101
[2023-02-08] MEDS ORDERED: ONDA4ODT MM (22:03)
[2023-02-08] MEDS ORDERED: LANS15EC PO (22:03)
[2023-02-08] MEDS ORDERED: PRED20 PO (22:03)
[2023-02-08] MEDS ORDERED: DOXY100 PO (22:03)
== END 2023-02-08 22:17 | disposition home or self-care (01) ==
LOC: ER 17:25
PROVIDERS: Physician Assistant
DX: J44.1 Chronic obstructive pulmonary disease with (acute) exacerbation (principal); B34.9 Viral infection, unspecified; F17.210 Nicotine dependence, cigarettes, uncomplicated; E78.5 Hyperlipidemia, unspecified; E11.22 Type 2 diabetes mellitus with diabetic chronic kidney disease; N18.9 Chronic kidney disease, unspecified; Z86.19 Personal history of other infectious and parasitic diseases; Z88.8 Allergy status to other drugs, medicaments and biological substances; Z79.51 Long term (current) use of inhaled steroids; Z79.899 Other long term (current) drug therapy; Z95.1 Presence of aortocoronary bypass graft
CPT/HCPCS: 71046; 80053; 83690; 84484; 85025; 93005; 93010; 96374; 96375; 99284-25; A9270; J1100; J2405

== ENCOUNTER 2023-02-24 11:11 | Inpatient (IN) | payer MEDICARE ==
[2023-02-24] VITALS (17 sets, daily range): BP systolic 135–180; BP diastolic 75–114
[~2023-02-24] VITALS: Ht 177.8 cm; Wt 81.5 kg
[~2023-02-24 11:11] MED LIST changes: +DOXY100 PO; +LANS15EC PO; +PRED20 PO
[2023-02-24 11:43] LABS: BASOPHILS ABSOLUTE AUTO 0.05 K/mm3 (0.00-0.23); BASOPHILS PERCENT AUTO 1 % (0-2); EOSINOPHILS ABSOLUTE AUTO 0.25 K/mm3 (0.00-0.68); EOSINOPHILS PERCENT AUTO 3 % (0-6); Hematocrit 28.6 % (37.0-53.0); Hemoglobin 9.2 g/dL (13.5-17.5); IMMATURE GRAN ABSOLUTE AUTO 0.02 K/mm3 (0.00-0.10); IMMATURE GRAN PERCENT AUTO 0 % (0-1); LYMPHOCYTES ABSOLUTE AUTO 1.05 K/mm3 (0.84-5.20); LYMPHOCYTES PERCENT AUTO 12 % (21-46); MONOCYTES PERCENT AUTO 9 % (4-13); Mean Corpuscular HGB Conc 32.2 g/dL (31.5-36.5); Mean Corpuscular Volume 96 fL (80-100); Mean Platelet Volume 9.4 fL (9.1-12.4); NEUTROPHILS ABSOLUTE AUTO 6.96 K/mm3 (1.96-9.15); NEUTROPHILS PERCENT AUTO 76 % (41-73); Platelet Count 316 K/mm3 (150-400); RDW Coefficient Variation 14.3 % (11.7-14.2); RDW Standard Deviation 50.3 fL (35.1-46.3); Red Blood Cell Count 2.97 M/mm3 (4.30-5.90); White Blood Cell Count 9.13 K/mm3 (4.00-11.30)
[2023-02-24 12:04] LABS: Albumin, Blood 3.4 g/dL (3.4-5.0); Albumin/Globulin Ratio 0.8 (0.8-1.8); Bilirubin, Total 0.4 mg/dL (0.1-1.0); Calcium, Blood 8.6 mg/dL (8.5-10.1); Total Protein, Blood 7.4 g/dL (6.4-8.2)
[2023-02-24 12:07] LABS: Bun/Creatinine Ratio 6.3 (12.0-20.0); Potassium, Blood 6.5 mmol/L (3.5-5.5)
--- NOTE | 2023-02-24 16:19 | NUR ---
ASSUMPTION OF CARE PT ARRIVED TO PCU ROOM 11 FROM ER, AMBULATES TO PCU BED WITHOUT ASSISTANCE. PT A&OX4. DENIES CP AT THIS TIME, NO SOB. DIALYSIS CATHETER TO RU CHEST, NEW FISTULA TO L ARM WITH GOOD THRILL. PT RECEIVES DIALYSIS ON //, MISSED DIALYSIS TODAY DUE TO CP. DIALYSIS NURSE CURRENTLY AT BEDSIDE SETTING UP. VSS. PT IS A SMOKER, REVIEWED HOSPITAL POLICY REGARDING SMOKING, PT UNDERSTANDS. 1-PACK OF CIGARETTES AND 1-QUALITY ASSURANCE RECEIVED FROM PT, LOCKED IN CABINET OUTSIDE OF ROOM. NOTIFIED OF NEED FOR NICOTINE, 21MG PATCH ORDERED AND PLACED. CALL LIGHT IN REACH, WILL MONITOR CLOSELY.
[2023-02-25] VITALS (22 sets, daily range): BP systolic 102–164; BP diastolic 65–104
[2023-02-25 03:57] LABS: Hematocrit 30.3 % (37.0-53.0)
[2023-02-25 04:17] LABS: Magnesium, Blood 2.2 mg/dL (1.6-2.4)
[2023-02-25 05:38] LABS: Albumin, Blood 3.3 g/dL (3.4-5.0); Anion Gap 7 mmol/L (6-16); Blood Urea Nitrogen 45 mg/dL (8-24); Bun/Creatinine Ratio 6.4 (12.0-20.0); CO2, Blood 27 mmol/L (21-32); Calcium, Blood 8.6 mg/dL (8.5-10.1); Chloride, Blood 95 mmol/L (98-108); Creatinine, Blood 6.99 mg/dL (0.60-1.20); Glomerular Filtration Rate 9 (60-); Glucose, Blood 178 mg/dL (70-99); Phosphorus, Blood 6.1 mg/dL (2.5-4.9); Potassium, Blood 6.8 mmol/L (3.5-5.5); Sodium, Blood 129 mmol/L (136-145)
--- NOTE | 2023-02-25 07:19 | NUR ---
SHIFT SUMMARY PATIENT ALERT AND ORIENTED X4. MEDICATED PER EMAR FOR PAIN. HAD NO COMPLAINTS OF SHORTNESS OF BREATH. ON ROOM AIR. VITAL SIGNS STABLE. NOTIFIED DR CÁRDENAS THAT THE PATIENT HAD A POTASSIUM OF 6.8 THIS MORNING, DR CÁRDENAS ORDERED FOR THE PATIENT TO BE DIALYZED TODAY. WILL CONTINUE TO MONITOR. CALL LIGHT WITHIN REACH.
--- NOTE | 2023-02-25 10:59 | NUR ---
PT LEFT FOR DIALYSIS THIS AM AT 0800. HE ALERT AND ORIENTED, NO DISTRESS NOTED. HE REPORTS MIDLINE CHEST PAIN THAT IS WORSE WITH SELF PALPATION. HE IS TREATED WITH NORCO FOR PAIN PRIOR TO LEAVING FOR DIALYSIS
--- NOTE | 2023-02-25 16:43 | NUR ---
PT IS RESTING WELL IN BED, AMBULATORY IN ROOM. USES CALL LIGHT APPROPRIATELY NEEDED. VSS. HE HAS BEEN TO DIALYSIS TODAY AND BACK. HE IS A/O X4. DENIES SOB, HAS NOT REQUIRED ADDITIONAL NORCO TODAY, HE TYPICALLY TAKES THIS TWICE A DAY AT HOME
[2023-02-26] VITALS (14 sets, daily range): BP systolic 92–157; BP diastolic 7–137
[2023-02-26 03:54] LABS: Hematocrit 31.6 % (37.0-53.0); Hemoglobin 10.5 g/dL (13.5-17.5)
[2023-02-26 04:28] LABS: Magnesium, Blood 2.3 mg/dL (1.6-2.4)
[2023-02-26 06:37] LABS: Albumin, Blood 3.6 g/dL (3.4-5.0); Blood Urea Nitrogen 40 mg/dL (8-24); Bun/Creatinine Ratio 6.9 (12.0-20.0); CO2, Blood 31 mmol/L (21-32); Calcium, Blood 9.3 mg/dL (8.5-10.1); Creatinine, Blood 5.77 mg/dL (0.60-1.20); Glomerular Filtration Rate 11 (60-); Glucose, Blood 119 mg/dL (70-99)
[2023-02-26 06:41] LABS: Phosphorus, Blood 8.1 mg/dL (2.5-4.9)
--- NOTE | 2023-02-26 07:08 | NUR ---
SHIFT SUMMARY PATIENT ALERT AND ORIENTED X4, INDEPENDENT IN ROOM. MEDICATED PER EMAR FOR PAIN. SPO2 >90% ON ROOM AIR, NO COMPLAINTS OF SHORTNESS OF BREATH. VITAL SIGNS STABLE, SINUS RHYTHM ON TELE. NO ACUTE ISSUES NOTED OVERNIGHT. WILL CONTINUE TO MONITOR. CALL LIGHT WITHIN REACH.
[2023-02-26 14:04] LABS: Anion Gap 8 mmol/L (6-16); Chloride, Blood 95 mmol/L (98-108); Potassium, Blood 5.4 mmol/L (3.5-5.5); Sodium, Blood 134 mmol/L (136-145)
--- NOTE | 2023-02-26 15:25 | NUR ---
DISCHARGE SUMMARY ALERT, ORIENTED, PLEASANT, COOPERATIVE. INDEPENDENT IN ROOM. AM POTASSIUM NOT BACK UNTIL AFTERNOON. DIALYSIS TREATMENT COMPLETED. TOLERATING ADA DIET, CHEM BG STABLE, NO COVERAGE NEEDED. POTASSIUM 5.4. DR CÁRDENAS AWARE AND OKAY FOR DISCHARGE. DR DEL RIO PLACED ORDERS. DISCHARGE EDUCATION GIVEN ON FOLLOW UP WITH NEW PCP, DIALYSIS, AND DR CÁRDENAS. IV DC'D WNL. PATIENT LEFT UNIT AT 1455 VIA WHEELCHAIR FOR HOME.
== END 2023-02-26 14:59 | disposition home or self-care (01) | DRG 640 ==
LOC: ER 11:11 → PCU 14:11
PROVIDERS: Emergency Medicine; Internal Medicine Nephrology; ADMIT Internal Medicine
PROC: 5A1D70Z Performance of Urinary Filtration, Intermittent, Less than 6 Hours Per Day (ICD-10-PCS; principal; 2023-02-25)
DX: E87.5 Hyperkalemia (principal); N18.6 End stage renal disease; I50.22 Chronic systolic (congestive) heart failure; I13.2 Hypertensive heart and chronic kidney disease with heart failure and with stage 5 chronic kidney disease, or end stage renal disease; I25.10 Atherosclerotic heart disease of native coronary artery without angina pectoris; M54.9 Dorsalgia, unspecified; G89.29 Other chronic pain; J44.9 Chronic obstructive pulmonary disease, unspecified; R07.89 Other chest pain; I27.21 Secondary pulmonary arterial hypertension; E11.22 Type 2 diabetes mellitus with diabetic chronic kidney disease; E78.5 Hyperlipidemia, unspecified; B19.20 Unspecified viral hepatitis C without hepatic coma; F17.210 Nicotine dependence, cigarettes, uncomplicated; F12.90 Cannabis use, unspecified, uncomplicated; E87.70 Fluid overload, unspecified; D63.1 Anemia in chronic kidney disease; E87.1 Hypo-osmolality and hyponatremia; Z99.2 Dependence on renal dialysis; Z95.1 Presence of aortocoronary bypass graft; Z88.8 Allergy status to other drugs, medicaments and biological substances; Z79.899 Other long term (current) drug therapy; Z79.82 Long term (current) use of aspirin; Z79.4 Long term (current) use of insulin; I25.2 Old myocardial infarction; Z87.11 Personal history of peptic ulcer disease; Z79.51 Long term (current) use of inhaled steroids; Z79.2 Long term (current) use of antibiotics
CPT/HCPCS: 36415; 71045; 80053; 80069; 82947; 83690; 83735; 83880; 84484; 85014; 85018; 85025; 93005; 93010; 94644; 94664; 94760; 94762; 96374; 99285-25; A9270; C9113; J0612; J0881; J1815; J2405; J2930; J3010; J7799; P9046

== ENCOUNTER 2023-03-27 08:50 | Day surgery (SDC) | payer MEDICARE ==
[~2023-03-27] VITALS: Ht 177.8 cm; Wt 81.3 kg
[2023-03-27 12:15] VITALS: BP 129/84
--- NOTE | 2023-03-27 12:15 | NUR ---
PT BACK TO RECOVERY ROOM. PT ALERT AND ORIENTED. PT ASKING FOR FOOD. PT GIVEN LUNCH AND REMINDED NOT TO USE L WRIST. TR BAND PLACED ON L WRIST. NO SWELLING OR BLEEDING NOTED.
[2023-03-27 12:30] VITALS: BP 163/94
[2023-03-27 12:45] VITALS: BP 145/91
[2023-03-27 13:00] VITALS: BP 176/95
--- NOTE | 2023-03-27 13:00 | NUR ---
TR BAND FULLY DEFLATED. NO BLEEDING OR SWELLING.
--- NOTE | 2023-03-27 13:50 | NUR ---
PT VERBALIZE D/C INSTRUCTIONS. TR BAND REMOVED AND DOT CLOTH PLACED. NO BLEEDING OR SWELLING NOTED. IV D/C CATHETER INTACT. PRESSURE DRESSING APPLIED. PT CALLED RIDE.
--- NOTE | 2023-03-27 13:56 | NUR ---
PT WHEELED OUT TO [facility]ONT [facility] WITH BELONGINGS AND INSTRUCTIONS.
== END 2023-03-27 15:14 | disposition home or self-care (01) ==
LOC: MHTC 08:50
DX: T82.898D Other specified complication of vascular prosthetic devices, implants and grafts, subsequent encounter (principal); E11.22 Type 2 diabetes mellitus with diabetic chronic kidney disease; I13.2 Hypertensive heart and chronic kidney disease with heart failure and with stage 5 chronic kidney disease, or end stage renal disease; I50.9 Heart failure, unspecified; N18.6 End stage renal disease; E78.5 Hyperlipidemia, unspecified; F20.0 Paranoid schizophrenia; E11.42 Type 2 diabetes mellitus with diabetic polyneuropathy; Z95.1 Presence of aortocoronary bypass graft; Z99.2 Dependence on renal dialysis; X58.XXXD Exposure to other specified factors, subsequent encounter
CPT/HCPCS: 36902; 37607; 76937; 99152; 99153; A9270; C1725; C1769; C1887; C1894; J2250; J3010; J7030; J7040; Q9967

== ENCOUNTER 2023-12-28 01:42 | Emergency (ER) | payer OTHER ==
[~2023-12-28] VITALS: Ht 177.8 cm; Wt 81.2 kg
[~2023-12-28 01:42] MED LIST changes: +CATAPRES0.1 MG PO; +LOKELMA10 GM PO; -Ventolin5 MG/1 ML; +Ventolin5 MG/1 ML INH
[2023-12-28 02:04] LABS: BASOPHILS ABSOLUTE AUTO 0.06 K/mm3 (0.00-0.23); BASOPHILS PERCENT AUTO 1 % (0-2); EOSINOPHILS ABSOLUTE AUTO 0.16 K/mm3 (0.00-0.68); EOSINOPHILS PERCENT AUTO 2 % (0-6); Hematocrit 30.9 % (37.0-53.0); IMMATURE GRAN ABSOLUTE AUTO 0.03 K/mm3 (0.00-0.10); IMMATURE GRAN PERCENT AUTO 1 % (0-1); LYMPHOCYTES PERCENT AUTO 15 % (21-46); MONOCYTES ABSOLUTE AUTO 0.69 K/mm3 (0.16-1.47); MONOCYTES PERCENT AUTO 10 % (4-13); Mean Corpuscular HGB 30.6 pg (26.0-34.0); Mean Corpuscular HGB Conc 32.4 g/dL (31.5-36.5); Mean Corpuscular Volume 95 fL (80-100); Mean Platelet Volume 9.2 fL (9.1-12.4); NEUTROPHILS ABSOLUTE AUTO 4.69 K/mm3 (1.96-9.15); NEUTROPHILS PERCENT AUTO 71 % (41-73); Platelet Count 283 K/mm3 (150-400); RDW Coefficient Variation 14.4 % (11.7-14.2); RDW Standard Deviation 50.2 fL (35.1-46.3); Red Blood Cell Count 3.27 M/mm3 (4.30-5.90); White Blood Cell Count 6.63 K/mm3 (4.00-11.30)
[2023-12-28] MEDS ORDERED: Mag Hydrox/AL Hydrox/Simeth 30 ML UDC PO ONE (02:10)
[2023-12-28] MEDS ORDERED: Atropine/Scopalam/Hyoscam/PB 5 ML UDC PO ONE (02:10)
[2023-12-28] MEDS ORDERED: Famotidine 10 MG/ML 2ML Vial IV ONE (02:10)
[2023-12-28] MEDS ORDERED: Lidocaine 2% Viscous Soln 15 ML UDC PO ONE (02:10)
[2023-12-28] MEDS ORDERED: Ondansetron HCl 2 MG / ML 2ML Vial IV ONE (02:10)
[2023-12-28 02:23] LABS: Alanine Aminotransfer (ALT/SGP 16 U/L (12-78); Albumin, Blood 3.9 g/dL (3.4-5.0); Albumin/Globulin Ratio 0.9 (0.8-1.8); Alk Phos 80 U/L (50-136); Anion Gap 14 mmol/L (3-11); Aspartate Aminotrans (AST/SGOT 10 U/L (12-37); Bilirubin, Total 0.5 mg/dL (0.1-1.0); Blood Urea Nitrogen 39 mg/dL (8-24); Bun/Creatinine Ratio 4.9 (12.0-20.0); CO2, Blood 30 mmol/L (21-32); Calcium, Blood 8.2 mg/dL (8.5-10.1); Chloride, Blood 97 mmol/L (98-108); Creatinine, Blood 7.93 mg/dL (0.60-1.20); Ethanol (Alcohol), Blood, Med <3 mg/dL; Globulin, Blood 4.4 g/dL (2.2-4.0); Glomerular Filtration Rate 7 (60-); Glucose, Blood 116 mg/dL (70-99); Magnesium, Blood 2.6 mg/dL (1.6-2.4); Potassium, Blood 4.8 mmol/L (3.5-5.5); Sodium, Blood 136 mmol/L (136-145); Total Protein, Blood 8.3 g/dL (6.4-8.2)
[2023-12-28 02:44] LABS: International Normalized Ratio 1.07; Prothrombin Time Results 11.4 Sec (9.7-11.5)
[2023-12-28] MEDS ORDERED: ONDA4ODT MM (03:40)
[2023-12-28 04:03] VITALS: BP 191/95
== END 2023-12-28 04:11 | disposition home or self-care (01) ==
LOC: ER 01:42
PROVIDERS: Emergency Medicine
DX: R10.13 Epigastric pain (principal); R11.2 Nausea with vomiting, unspecified; E11.22 Type 2 diabetes mellitus with diabetic chronic kidney disease; I13.2 Hypertensive heart and chronic kidney disease with heart failure and with stage 5 chronic kidney disease, or end stage renal disease; N18.6 End stage renal disease; I50.20 Unspecified systolic (congestive) heart failure; I25.2 Old myocardial infarction; J44.9 Chronic obstructive pulmonary disease, unspecified; F17.210 Nicotine dependence, cigarettes, uncomplicated; Z79.899 Other long term (current) drug therapy; Z88.8 Allergy status to other drugs, medicaments and biological substances
CPT/HCPCS: 71045; 80053; 83605; 83690; 83735; 84145; 84484; 85025; 85610; 93005; 93010; 96374; 96375; 99285-25; A9270; J2405

== ENCOUNTER 2024-01-28 21:03 | Emergency (ER) | payer OTHER ==
[~2024-01-28] VITALS: Ht 177.8 cm; Wt 80.7 kg
[2024-01-29 00:45] VITALS: BP 128/63
[2024-01-29] MEDS ORDERED: LIDO700A20 TOP (01:05)
== END 2024-01-29 01:20 | disposition home or self-care (01) ==
LOC: ER 21:03
DX: M25.552 Pain in left hip (principal); M25.531 Pain in right wrist; E11.22 Type 2 diabetes mellitus with diabetic chronic kidney disease; N18.6 End stage renal disease; I13.2 Hypertensive heart and chronic kidney disease with heart failure and with stage 5 chronic kidney disease, or end stage renal disease; I50.20 Unspecified systolic (congestive) heart failure; I25.2 Old myocardial infarction; Z99.2 Dependence on renal dialysis; Z79.899 Other long term (current) drug therapy; Z88.8 Allergy status to other drugs, medicaments and biological substances
CPT/HCPCS: 70450; 72125; 72170; 73110; 73130; 73552; 93005; 93010; 99284-25

== ENCOUNTER → 2024-04-13 | Outpatient (CLI) | payer OTHER ==
[~2024-04-13] MED LIST changes: +LIDO700A20 TOP
[2024-04-13 14:59] LABS: BASOPHILS ABSOLUTE AUTO 0.08 K/mm3 (0.00-0.23); BASOPHILS PERCENT AUTO 1 % (0-2); EOSINOPHILS ABSOLUTE AUTO 0.18 K/mm3 (0.00-0.68); EOSINOPHILS PERCENT AUTO 2 % (0-6); Hematocrit 32.8 % (37.0-53.0); Hemoglobin 10.5 g/dL (13.5-17.5); IMMATURE GRAN ABSOLUTE AUTO 0.05 K/mm3 (0.00-0.10); IMMATURE GRAN PERCENT AUTO 1 % (0-1); LYMPHOCYTES ABSOLUTE AUTO 0.75 K/mm3 (0.84-5.20); LYMPHOCYTES PERCENT AUTO 9 % (21-46); MONOCYTES ABSOLUTE AUTO 1.07 K/mm3 (0.16-1.47); MONOCYTES PERCENT AUTO 13 % (4-13); Mean Corpuscular HGB 30.8 pg (26.0-34.0); Mean Corpuscular Volume 96 fL (80-100); NEUTROPHILS ABSOLUTE AUTO 6.19 K/mm3 (1.96-9.15); NEUTROPHILS PERCENT AUTO 74 % (41-73); RDW Coefficient Variation 16.9 % (11.7-14.2); RDW Standard Deviation 59.2 fL (35.1-46.3); Red Blood Cell Count 3.41 M/mm3 (4.30-5.90); White Blood Cell Count 8.32 K/mm3 (4.00-11.30)
[2024-04-13 15:01] LABS: Mean Platelet Volume 10.4 fL (9.1-12.4)
[2024-04-13 15:03] LABS: Albumin, Blood 3.9 g/dL (3.4-5.0); Anion Gap 16 mmol/L (3-11); Blood Urea Nitrogen 42 mg/dL (8-24); Bun/Creatinine Ratio 5.5 (12.0-20.0); CO2, Blood 33 mmol/L (21-32); Calcium, Blood 9.4 mg/dL (8.5-10.1); Chloride, Blood 97 mmol/L (98-108); Creatinine, Blood 7.65 mg/dL (0.60-1.20); Glomerular Filtration Rate 8 (60-); Glucose, Blood 146 mg/dL (70-99); Magnesium, Blood 2.5 mg/dL (1.6-2.4); Phosphorus, Blood 7.9 mg/dL (2.5-4.9); Potassium, Blood 4.8 mmol/L (3.5-5.5); Sodium, Blood 141 mmol/L (136-145)
[2024-04-13 15:19] LABS: Platelet Count 202 K/mm3 (150-400)
[2024-04-13 18:51] LABS: PSA, Free 0.251 ng/mL
== END ==
LOC: LAB SHORT 14:49 → LAB 14:49
PROVIDERS: Chiropractor
DX: N40.0 Benign prostatic hyperplasia without lower urinary tract symptoms (principal); R33.9 Retention of urine, unspecified
CPT/HCPCS: 80069; 83735; 84153; 84154; 85025

== ENCOUNTER 2024-05-13 11:02 | Emergency (ER) | payer OTHER ==
[~2024-05-13] VITALS: Ht 177.8 cm; Wt 81.2 kg
[2024-05-13 11:43] LABS: BASOPHILS ABSOLUTE AUTO 0.07 K/mm3 (0.00-0.23); BASOPHILS PERCENT AUTO 1 % (0-2); EOSINOPHILS ABSOLUTE AUTO 0.33 K/mm3 (0.00-0.68); EOSINOPHILS PERCENT AUTO 5 % (0-6); Hematocrit 32.5 % (37.0-53.0); Hemoglobin 10.6 g/dL (13.5-17.5); IMMATURE GRAN ABSOLUTE AUTO 0.02 K/mm3 (0.00-0.10); IMMATURE GRAN PERCENT AUTO 0 % (0-1); LYMPHOCYTES ABSOLUTE AUTO 0.71 K/mm3 (0.84-5.20); LYMPHOCYTES PERCENT AUTO 11 % (21-46); MONOCYTES PERCENT AUTO 16 % (4-13); Mean Corpuscular HGB 30.4 pg (26.0-34.0); Mean Corpuscular HGB Conc 32.6 g/dL (31.5-36.5); Mean Corpuscular Volume 93 fL (80-100); Mean Platelet Volume 9.5 fL (9.1-12.4); NEUTROPHILS ABSOLUTE AUTO 4.19 K/mm3 (1.96-9.15); NEUTROPHILS PERCENT AUTO 66 % (41-73); Platelet Count 231 K/mm3 (150-400); RDW Coefficient Variation 16.7 % (11.7-14.2); RDW Standard Deviation 56.4 fL (35.1-46.3); Red Blood Cell Count 3.49 M/mm3 (4.30-5.90); White Blood Cell Count 6.32 K/mm3 (4.00-11.30)
[2024-05-13 12:15] LABS: Albumin, Blood 3.2 g/dL (3.4-5.0); Albumin/Globulin Ratio 0.7 (0.8-1.8); Bilirubin, Total 1.1 mg/dL (0.1-1.0); Bun/Creatinine Ratio 6.5 (12.0-20.0); Calcium, Blood 9.9 mg/dL (8.5-10.1); Creatinine, Blood 5.24 mg/dL (0.60-1.20); Globulin, Blood 4.4 g/dL (2.2-4.0); Potassium, Blood 4.9 mmol/L (3.5-5.5); Total Protein, Blood 7.6 g/dL (6.4-8.2)
[2024-05-13 15:15] VITALS: BP 147/56
== END 2024-05-13 15:23 | disposition home or self-care (01) ==
LOC: ER 11:02
PROVIDERS: Physician Assistant
DX: L76.32 Postprocedural hematoma of skin and subcutaneous tissue following other procedure (principal); J44.9 Chronic obstructive pulmonary disease, unspecified; E11.22 Type 2 diabetes mellitus with diabetic chronic kidney disease; I13.2 Hypertensive heart and chronic kidney disease with heart failure and with stage 5 chronic kidney disease, or end stage renal disease; I50.20 Unspecified systolic (congestive) heart failure; I25.10 Atherosclerotic heart disease of native coronary artery without angina pectoris; I25.2 Old myocardial infarction; N18.6 End stage renal disease; E78.00 Pure hypercholesterolemia, unspecified; F17.210 Nicotine dependence, cigarettes, uncomplicated; Z99.2 Dependence on renal dialysis; Z88.8 Allergy status to other drugs, medicaments and biological substances; Z79.899 Other long term (current) drug therapy
CPT/HCPCS: 76882; 80053; 85025; 99284-25

== ENCOUNTER 2024-05-21 01:40 | Emergency (ER) | payer OTHER ==
[~2024-05-21] VITALS: Ht 177.8 cm; Wt 81.2 kg
[2024-05-21] MEDS ORDERED: OxyCODONE 5 mg/Acetamin 325 mg TABLET PO ONE (06:40)
[2024-05-21] MEDS ORDERED: Lidocaine 4% 1 Patch TOP ONE (06:40)
[2024-05-21] MEDS ORDERED: Lidocaine 4% 1 Patch TOP SCH (07:15)
[2024-05-21] MEDS ORDERED: LIDO700A20 TOP (08:21)
[2024-05-21 08:56] VITALS: BP 139/67
== END 2024-05-21 08:59 | disposition home or self-care (01) ==
LOC: ER 01:40
DX: R07.81 Pleurodynia (principal); M54.6 Pain in thoracic spine; E78.00 Pure hypercholesterolemia, unspecified; J44.9 Chronic obstructive pulmonary disease, unspecified; I25.2 Old myocardial infarction; E11.22 Type 2 diabetes mellitus with diabetic chronic kidney disease; I13.0 Hypertensive heart and chronic kidney disease with heart failure and stage 1 through stage 4 chronic kidney disease, or unspecified chronic kidney disease; N18.6 End stage renal disease; I50.20 Unspecified systolic (congestive) heart failure; F17.210 Nicotine dependence, cigarettes, uncomplicated; Z79.899 Other long term (current) drug therapy; Z88.8 Allergy status to other drugs, medicaments and biological substances
CPT/HCPCS: 71046; 99283-25; A9270

== ENCOUNTER 2024-05-24 09:14 | Inpatient (IN) | payer OTHER ==
[2024-05-24] VITALS (22 sets, daily range): BP systolic 106–146; BP diastolic 43–86
[~2024-05-24] VITALS: Ht 177.8 cm; Wt 72.3 kg
[2024-05-24] MEDS ORDERED: Nitroglycerin 0.4 MG SUBL SL PRN (09:45)
[2024-05-24 09:59] LABS: BASOPHILS ABSOLUTE AUTO 0.06 K/mm3 (0.00-0.23); BASOPHILS PERCENT AUTO 1 % (0-2); EOSINOPHILS ABSOLUTE AUTO 0.12 K/mm3 (0.00-0.68); EOSINOPHILS PERCENT AUTO 1 % (0-6); Hematocrit 24.4 % (37.0-53.0); Hemoglobin 7.9 g/dL (13.5-17.5); IMMATURE GRAN ABSOLUTE AUTO 0.05 K/mm3 (0.00-0.10); IMMATURE GRAN PERCENT AUTO 1 % (0-1); LYMPHOCYTES ABSOLUTE AUTO 0.56 K/mm3 (0.84-5.20); LYMPHOCYTES PERCENT AUTO 7 % (21-46); MONOCYTES ABSOLUTE AUTO 0.95 K/mm3 (0.16-1.47); MONOCYTES PERCENT AUTO 11 % (4-13); Mean Corpuscular HGB 29.8 pg (26.0-34.0); Mean Corpuscular HGB Conc 32.4 g/dL (31.5-36.5); Mean Corpuscular Volume 92 fL (80-100); Mean Platelet Volume 9.1 fL (9.1-12.4); NEUTROPHILS ABSOLUTE AUTO 6.88 K/mm3 (1.96-9.15); NEUTROPHILS PERCENT AUTO 80 % (41-73); Platelet Count 325 K/mm3 (150-400); RDW Coefficient Variation 16.4 % (11.7-14.2); RDW Standard Deviation 56.2 fL (35.1-46.3); Red Blood Cell Count 2.65 M/mm3 (4.30-5.90); White Blood Cell Count 8.62 K/mm3 (4.00-11.30)
[2024-05-24 10:25] LABS: Albumin, Blood 2.9 g/dL (3.4-5.0); Albumin/Globulin Ratio 0.6 (0.8-1.8); Bilirubin, Total 1.1 mg/dL (0.1-1.0); Bun/Creatinine Ratio 9.7 (12.0-20.0); Calcium, Blood 9.2 mg/dL (8.5-10.1); Creatinine, Blood 7.8 mg/dL (0.60-1.20); Globulin, Blood 4.5 g/dL (2.2-4.0); Potassium, Blood 6.3 mmol/L (3.5-5.5); Total Protein, Blood 7.4 g/dL (6.4-8.2)
[2024-05-24] MEDS ORDERED: Albuterol 2.5 MG/3 ML VIAL INH SCH (10:30)
[2024-05-24] MEDS ORDERED: Insulin Regular 100 Unit/ML 1ML Dose IV ONE (10:30)
[2024-05-24] MEDS ORDERED: Dextrose 50% 50 ML Syringe IV ONE (10:30)
[2024-05-24] MEDS ORDERED: Sodium Polystyrene Sulfonate 15GM / 60ML BTL PO ONE (10:30)
[2024-05-24] MEDS ORDERED: Calcium Gluconate 10% 100 MG/ML INJ IV ONE (10:30)
[2024-05-24] MEDS ORDERED: Dextrose 50% 50 ML Vial IV ONE (10:45)
[2024-05-24] MEDS ORDERED: FLU VACC TS2024-25(6MOS UP)/PF 45 MCG/0.5 ML SYRINGE IM SCH (12:05)
[2024-05-24] MEDS ORDERED: Ondansetron HCl 2 MG / ML 2ML Vial IV PRN (12:05)
[2024-05-24 12:22] LABS: Anti-Xa UFH, PHA Monitoring <0.10 IU/mL; International Normalized Ratio 1.14; Prothrombin Time Results 12.1 Sec (9.7-11.5)
[2024-05-24] MEDS ORDERED: Dose Adjust by Pharmacy XX STA (12:31)
[2024-05-24] MEDS ORDERED: Heparin Sodium 5000 Units/ML 1ML MDV IV ONE (12:35)
[2024-05-24] MEDS ORDERED: Heparin Sodium,Porcine/0.5 NS 500 ML IV SCH (12:35)
[2024-05-24] MEDS ORDERED: Sodium Zirconium Cyclosilicate 10 GM Packet PO SCH (15:00)
[2024-05-24] MEDS ORDERED: Pantoprazole Sodium 40 MG in NS 50 ML IV SCH (16:10)
[2024-05-24 16:52] LABS: Hemoglobin 6.8 g/dL (13.5-17.5); Mean Corpuscular HGB 29.8 pg (26.0-34.0); Mean Corpuscular HGB Conc 32.4 g/dL (31.5-36.5); Mean Corpuscular Volume 92 fL (80-100); Mean Platelet Volume 9.3 fL (9.1-12.4); Platelet Count 382 K/mm3 (150-400); RDW Coefficient Variation 16.6 % (11.7-14.2); RDW Standard Deviation 56.1 fL (35.1-46.3); Red Blood Cell Count 2.28 M/mm3 (4.30-5.90); White Blood Cell Count 11.77 K/mm3 (4.00-11.30)
--- NOTE | 2024-05-24 22:14 | NUR ---
UPDATE ASSUMED CARE OF PT AT 1900, PT RECEIVING DIALYSIS TREATMENT AND 2 UNITS PRBC COMPLETED BY DIALYSIS NURSE, PT ALERT AND ORIENTED TO SELFT, DATE, EASILY REORIENTED TO PLACE AND SITUATION, PT DISAGREEABLE TO ALL ADLS AND CARE GIVEN, UPSET WITH NEED FOR ORAL CARE, PERSONAL CARE/HTYGEINE, BEDREST ORDERED, PT WANTING TO GET UP TO BATHROOM FOR BM, REFUSED BEDPAN WHEN OFFERED AND THEN YELLED " IF YOU DONT GET ME SOMETHING TO PUT UNDER ME, IM GOING TO GO IN THE BED", BED SALGADO PLACED WITH NO RESULTS, ONLY GAS, PT GIVEN COMPLETE BEDBATH , GOWN AND SHEETS CHANGED AFTER DISCUSSING NEED FOR HYGEINE AND TO REPLACE PAD TO HELP WITH REPOSITIONING, ST 100S, BP STABLE, AFEBRILE, ON 2 LPM NC SPO2>90%, FISTULA TO RIGHT UPPER ARM +BRUITT/THRILL NOTED AND DRESSIND DRY AND INTACT, PIV TO RIGHT WRIST PATENT WITH PROTONIX INFUSING AT 10 ML/HR, PT REFUSING TO HAVE ANOTHER PIV PLACED TONIGHT, STATES "I JUST WANT TO GO TO SLEEP" C/O B/P TIMES AND NEED FOR ANY ASSESSMENTS, BP TIME CHANGED TO EVERY HOUR, SIDE RAILS UP X2 CALL LIGHT IN REACH AND LIGHTS DIMMED
[2024-05-25] VITALS (28 sets, daily range): BP systolic 95–158; BP diastolic 40–142
[2024-05-25 03:27] LABS: Hematocrit 24.2 % (37.0-53.0); Hemoglobin 8.2 g/dL (13.5-17.5); Mean Corpuscular HGB Conc 33.9 g/dL (31.5-36.5); Mean Corpuscular Volume 89 fL (80-100); Platelet Count 277 K/mm3 (150-400); RDW Coefficient Variation 16.8 % (11.7-14.2); RDW Standard Deviation 53.3 fL (35.1-46.3); Red Blood Cell Count 2.73 M/mm3 (4.30-5.90); White Blood Cell Count 7.64 K/mm3 (4.00-11.30)
[2024-05-25 03:53] LABS: Albumin, Blood 2.6 g/dL (3.4-5.0); Anion Gap 17 mmol/L (3-11); Blood Urea Nitrogen 79 mg/dL (8-24); Bun/Creatinine Ratio 12.3 (12.0-20.0); CO2, Blood 28 mmol/L (21-32); Chloride, Blood 96 mmol/L (98-108); Glomerular Filtration Rate 10 (60-); Glucose, Blood 106 mg/dL (70-99); Magnesium, Blood 2.1 mg/dL (1.6-2.4); Phosphorus, Blood 6.9 mg/dL (2.5-4.9); Potassium, Blood 5.2 mmol/L (3.5-5.5); Sodium, Blood 136 mmol/L (136-145)
--- NOTE | 2024-05-25 06:13 | NUR ---
SHIFT SUMMARY AFEBRILE, SR-ST 90-110S, SBP 120S, RESP EVEN AND UNLABORED ON 2 LPM NC WITH SPO2>90%, AFTER DIALYSIS TREATMENT AND BEDBATH, LIGHTS DIMMED, WITH STIMULI REDUCED AND PT RESTING QUIETLY THE REST OF THE SHIFT, REMAINS CONFUSED TO PLACE AND SITUATION WHEN AWAKENED, FOLLOWS COMMANDS, TURNS SELF, DENIES C/O CHEST PAIN OR SOB,PIV TO RIGHT WRIST PATENT WITH PROTONIX INFUSING AT 10 ML/HR, TROPONIN CONTINUES TO TREND UPWARD NOW AT 1949 WITH AM LABS, AWARE, PT ASYMPTOMATIC, NO NEW ORDERS, SIDE RAILS UP X2, BED ALARM INTERVENTIONAL SALE CONSULTANT LIGHT IN REACH
[2024-05-25] MEDS ORDERED: FentaNYL Citrate 50 MCG/ML 2 ML Injection IV PRN (08:20)
[2024-05-25 08:28] LABS: Percent Saturation 55.8 % (20.0-50.0)
[2024-05-25] MEDS ORDERED: Calcium Acetate 667 MG Gel Cap PO SCH (08:30)
[2024-05-25] MEDS ORDERED: Nicotine 21 MG PATCH TOP SCH (09:00)
[2024-05-25 12:13] LABS: Hematocrit 24.7 % (37.0-53.0); Hemoglobin 8.6 g/dL (13.5-17.5)
--- NOTE | 2024-05-25 15:16 | NUR ---
Pt to go to PCU 7 after dialysis. Report given to RN assuming care. Personal belongings sent to new room. Dialysis staff updated with new plan.
[2024-05-25] MEDS ORDERED: Darbepoetin Alfa In Albumn Sol 40 MCG/0.4 ML SC SCH (16:00)
--- NOTE | 2024-05-25 16:03 | NUR ---
ASSUMPTION/END OF SHIFT: PATIENT IS ALERT AND ORIENTED, RA SPO2 99%. SR 90'S DENIES CHEST PAIN PRESSURE OR SOB, DOES ENDORSES HICCUP, NEUROPATHY BLE LEVEL OF THE BELOW THE KNEE. PATIENT IS ALERT AND ORIENTED X3-4, DIFFICULT TO GAUGE HIS COMPLETE UNDERSTANDING OF HIS SITUATION, MEDICAL KNOWLEDGE DEFECIT, STILL ENDORSES IMPROVING CHEST PAIN, VSS. GENERALIZED PAIN, MEDICATION GIVEN, QT .52 ON CHECK, DEFFERRED ZOFRAN AT THIS TIME INFUSING PROTONIX, EDUCATION ABOUT SITUATION GIVEN. TROP STILL ELEVATED CALL TO HOSPITALIST. NO ACUTE CONCERNS FROM THIS RN.
--- NOTE | 2024-05-25 20:04 | NUR ---
CHANGE TO EOS: 1 EPISODE OF EMESIS NON BLOODY, 1 VERY SCANT VERY DARK BM, NPO 0000 FOR POTENTIAL EGD. ZOFRAN WAS ABLE TO BE GIVEN DUE TO QT .41. IMPROVED NAUSEA STILL HAVING HICCUPS. NO WORSENING CHEST PAIN.
[2024-05-26] VITALS (24 sets, daily range): BP systolic 75–144; BP diastolic 31–95
--- NOTE | 2024-05-26 04:51 | NUR ---
SHIFT SUMMARY. SHIFT HAS BEEN UNREMARKABLE. PT AOX3-4, PLEASANT, COOPERATIVE WITH CARE, ABLE TO MAKE NEEDS KNOWN. HAS BEEN ABLE TO REST COMFORTABLY THROUGHOUT MOST OF SHIFT. PAIN HAS BEEN ADEQUATELY MANAGED VIA EMAR. VITALS HAVE BEEN STABLE OUTSIDE OF SOMEWHAT SOFT BP AT TIMES. PT ABLE TO REPOSITION SELF INDEPENDENTLY. CONTINUES TO HAVE NO URINE OUTPUT, DIALYSIS PATIENT. CONTINUES TO RUN SINUS ON TELE, RATE PRIMARILY IN THE 90s. MAINTAINS ADEQUATE SATURATION ON ROOM AIR. PROTONIX DRIP RUNNING THROUGHOUT SHIFT. BED LOCKED IN LOWEST POSITION. CALL LIGHT LEFT WITHIN REACH. CONTINUING TO MONITOR.
[2024-05-26 05:16] LABS: Hematocrit 24.6 % (37.0-53.0); Hemoglobin 8.1 g/dL (13.5-17.5); Mean Corpuscular HGB 30.6 pg (26.0-34.0); Mean Corpuscular HGB Conc 32.9 g/dL (31.5-36.5); Mean Corpuscular Volume 93 fL (80-100); Mean Platelet Volume 9.5 fL (9.1-12.4); Platelet Count 292 K/mm3 (150-400); RDW Coefficient Variation 17.2 % (11.7-14.2); Red Blood Cell Count 2.65 M/mm3 (4.30-5.90); White Blood Cell Count 6.91 K/mm3 (4.00-11.30)
[2024-05-26 05:52] LABS: Albumin, Blood 2.5 g/dL (3.4-5.0); Anion Gap 14 mmol/L (3-11); Blood Urea Nitrogen 73 mg/dL (8-24); Bun/Creatinine Ratio 12.8 (12.0-20.0); CO2, Blood 28 mmol/L (21-32); Calcium, Blood 9.3 mg/dL (8.5-10.1); Chloride, Blood 99 mmol/L (98-108); Creatinine, Blood 5.72 mg/dL (0.60-1.20); Glomerular Filtration Rate 11 (60-); Glucose, Blood 116 mg/dL (70-99); Magnesium, Blood 2.4 mg/dL (1.6-2.4); Phosphorus, Blood 5.9 mg/dL (2.5-4.9); Potassium, Blood 5.2 mmol/L (3.5-5.5); Sodium, Blood 136 mmol/L (136-145)
--- NOTE | 2024-05-26 09:14 | NUR ---
THIS RN DISCUSSED PTS PAIN WITH PROVIDER WITH CONCER FOR CONCERN WITH GIVING FENTANLY WITH PTS BLOOD PRESSURE. PROVIDER OK WITH PT RECIEVING 25MCG OF FENTANLY AND TO NOTIFY PROVIDER IF PTS MAP IS 55 OR LOWER.
[2024-05-26] MEDS ORDERED: Lidocaine 4% 1 Patch TOP SCH (11:25)
[2024-05-26] MEDS ORDERED: NS 1,000 ML IV SCH (13:10)
--- NOTE | 2024-05-26 13:25 | NUR ---
PT HERE FROM PCU 7 VIA NEIL Pre-Op teaching done. Pt verbalizes understanding. History, Chart, Medications and Allergies reviewed before start of procedure.Patient confirms NPO status and agrees with scheduled surgery.
[2024-05-26] MEDS ORDERED: propofoL 0 ML IV ONE (13:44)
[2024-05-26] MEDS ORDERED: FentaNYL Citrate 50 MCG/ML 2 ML Injection ONE (13:44)
[2024-05-26] MEDS ORDERED: propofoL 20 ML IV ONE (13:45)
--- NOTE | 2024-05-26 13:55 | NUR ---
05/26/24 1355 Anton Fernandez MONITOR INTACT WITH CONTINUOUS PULSE OXIMETRY, CONTINUOUS END TITAL CO2, AND INTERMITTENT BLOOD PRESSURE.AND EKG ANESTHESIA PER ANNABELLA LUMBER STACKER DRIVER
--- NOTE | 2024-05-26 17:00 | NUR ---
SHIFT SUMMERY: NEURO: PT A&OX4. FOLLOWS COMMANDS AND MAKES NEEDS KNOWN TO STAFF. PT HAS REPORTED PAIN THROUGHOUT THE DAY THAT HAS MADE HIM IRRITABLE OFF AND ON. NO ACUTE NEURO SYMPTOMS. CARDIAC: PT REPORTS CP OFF AND ON TODAY THAT HAS BEEN PRESENT FOR THE LAST 4 DAYS. PROVIDER AWARE OF CP. PT WAS HYPOTENSIVE THIS AM BUT HAS BEEN STABLE THE REST OF THE DAY. MAP >65. RESP: PT ON RA AND MAINTAINING O2 SATS >92%. REPORTS LITTLE SOB THAT IS NOT NEW FOR PT. PROVIDER ALSO AWARE. GI/: PT DID NOT HAVE ANY URINARY OUTPUT TODAY AND HAS NOT HAD A BOWEL MOVEMENT. PT RECIEVED DIALYSIS THIS AM AND WENT FOR A EGD THIS AFTERNOON THAT SHOWED 3 LARGE ULCERS. NONE WERE BLEEDING SO NO INTERVENTIONS WERE PERFORMED. PT WAS TAKEN OFF PROTONIX DRIP AND CHANGED TO BID DOSES. PT GOT UP TO THE SHOWER THIS EVENING WITH 1P ASSIST. NO OTHER SIGNIFICANT EVENTS HAPPENED DURING THIS SHIFT. WILL CONTINUE TO CARE FOR PT TILL END OF SHIFT.
[2024-05-26] MEDS ORDERED: Pantoprazole Sodium 40 MG Injection IV SCH (21:00)
[2024-05-26] MEDS ORDERED: OxyCODONE HCL 5 MG TAB PO PRN (22:17)
[2024-05-27] VITALS (18 sets, daily range): BP systolic 115–152; BP diastolic 34–92
--- NOTE | 2024-05-27 04:30 | NUR ---
SHIFT SUMMARY. SHIFT HAS BEEN UNREMARKABLE. PT AOX4, PLEASANT, COOPERATIVE WITH CARE, ABLE TO MAKE NEEDS KNOWN. HAS BEEN ABLE TO REST COMFORTABLY THROUGHOUT MUCH OF SHIFT. VITALS HAVE REMAINED STABLE, BP CAN BE SOMEWHAT SOFT AT TIMES. PAIN HAS BEEN MOSTLY ADEQUATELY MANAGED VIA EMAR OUTSIDE OF SOME BREAKTHROUGH PAIN LATE LAST NIGHT FOR WHICH DR. ANDRADE PRESCRIBED ONE TIME DOSE OF OXYCODONE WHICH HELPED TO MANAGE PAIN. OTHERWISE SHIFT HAS BEEN UNREMARKABLE. PT HAD SHORT RUN OF SVT EARLY THIS MORNING, AWAITING RESULTS OF ELECTROLYTES ON MORNING LABS AND NOTIFY RESIDENT OF ANY ABNORMALITIES. OTHERWISE CONTINUES TO RUN SINUS ON TELE. BED LOCKED IN LOWEST POSITION. CALL LIGHT LEFT WITHIN REACH. CONTINUING TO MONITOR.
[2024-05-27 04:37] LABS: Hematocrit 26.6 % (37.0-53.0); Hemoglobin 8.6 g/dL (13.5-17.5); Mean Corpuscular HGB Conc 32.3 g/dL (31.5-36.5); Mean Corpuscular Volume 93 fL (80-100); Mean Platelet Volume 9.4 fL (9.1-12.4); Platelet Count 288 K/mm3 (150-400); RDW Coefficient Variation 16.7 % (11.7-14.2); RDW Standard Deviation 54.8 fL (35.1-46.3); Red Blood Cell Count 2.87 M/mm3 (4.30-5.90); White Blood Cell Count 6.09 K/mm3 (4.00-11.30)
[2024-05-27 05:14] LABS: Albumin, Blood 2.7 g/dL (3.4-5.0); Anion Gap 11 mmol/L (3-11); Blood Urea Nitrogen 50 mg/dL (8-24); Bun/Creatinine Ratio 9.5 (12.0-20.0); CO2, Blood 30 mmol/L (21-32); Calcium, Blood 9.7 mg/dL (8.5-10.1); Chloride, Blood 99 mmol/L (98-108); Creatinine, Blood 5.24 mg/dL (0.60-1.20); Glomerular Filtration Rate 12 (60-); Glucose, Blood 118 mg/dL (70-99); Magnesium, Blood 2.3 mg/dL (1.6-2.4); Phosphorus, Blood 5.4 mg/dL (2.5-4.9); Potassium, Blood 4.6 mmol/L (3.5-5.5); Sodium, Blood 135 mmol/L (136-145)
[2024-05-27] MEDS ORDERED: HYDROcodone 5-APAP 325 TAB PO PRN (07:30)
[2024-05-27] MEDS ORDERED: Pantoprazole Sodium 40 MG Tab PO SCH (08:00)
[2024-05-27] MEDS ORDERED: Sucralfate 1000MG / 10ML UD BTL PO SCH (11:30)
[2024-05-27] MEDS ORDERED: Isosorbide Mononitrate 30 MG TABCR PO SCH (12:00)
[2024-05-27] MEDS ORDERED: PROTONIX4010 PO (12:54)
[2024-05-27] MEDS ORDERED: SUCR1 PO (12:55)
[2024-05-27] MEDS ORDERED: NICO21TP TOP (12:55)
[2024-05-27] MEDS ORDERED: Isosorbide Mono30 MG PO (12:55)
[2024-05-27] MEDS ORDERED: Acyclovir 400 MG Tab PO SCH (13:30)
--- NOTE | 2024-05-27 13:46 | NUR ---
UPDATE: PT GETTING READY FOR DISCHARGE WHEN HE BEGAN COMPLAINING OF PAIN TO HIS RIGHT SIDE STATING THAT HE HAS A RASH THAT IS "AN ALLERGIC REACTION TO THE MEDICATIONS THAT WE GAVE HIM". PT IN "EXCRUCIATING PAIN". PROVIDED CONTACTED. PROVIDER ASSESSED PT AND THINKS HE HAS SHINGLES AND CAN NO LONGER DC TO HOME. PT INFORMED AND AGREEABLE TO PLAN. STATES THAT HE HAS HAD SHINGLES IN THE PAST AND THAT HE STILL THINKS THAT THE RASH IS AN ALLERGIC REACTION TO THE MEDS HE RECIEVED. PT NOT IN ANY DISTRESS AT THIS TIME.
[2024-05-27] MEDS ORDERED: Acyclovir 400 MG Tab PO ONE (14:00)
[2024-05-27] MEDS ORDERED: Ondansetron 4 MG SoluTab SL PRN (16:25)
[2024-05-27] MEDS ORDERED: HyDROXyzine HCl 25 MG Tab PO PRN (17:40)
--- NOTE | 2024-05-27 18:06 | NUR ---
SHIFT SUMMERY: NEURO: PT A&OX4. FOLLOWS COMMANDS AND MAKES NEEDS KNOWN TO STAFF. PT BECAME VERY ANXIOUS AT THE END OF THE SHIFT. PROVIDER CONTACTED. CARDIAC: PT REPORTS CP THAT HE HAS HAD FOR THE LAST 5 DAYS. PROVIDER AWARE. PT IS NO LONGER ON TELE. RESP: PT BEGAN COMPLAINING OF SOB AROUND 1730 AND WAS DEMENDING FOR HIS RN TO CALL THE DR AND RESPIRATORY CARE. THIS RN ASSESSED PT. PATIENTS LUNG SOUNDS WERE CLEAR, PT WAS SATING 100% ON RA. PT WAS TACHYPENIC WITH A RR OF 30. PT WAS COACHED TO FOCUS ON SLOWING HIS BREATHING DOWN. PT THEN STATED THAT HE WANTED TO BE TRANSFERED BECAUSE HE FELL LIKE HE IS NOT BEING TAKEN SERIOUSLY. PT WAS EDUCATED ON WHY THIS RN HAD TO ASSESS HIM BEFORE CALLING THE DR AND RT. PT NOT RECEPTIVE TO THE INFORMATION THAT THIS RN WAS PROVIDING ABOUT HIS ASSESSMENT. PT BECAME MORE AGGITATED HE ATE PEACHES OFF OF HIS DINNER TRAY. PROVIDED CONTACTED. PT OFFERED ANXIETY MEDICATION AND REFUSED. PT OTHERWISE PT ON RA. O2 SATS 100%. NO COMPLAINTS PRIOR BESIDES SLIGHT SOB HE HAS HAD FOR SEVERAL DAYS. PT NO LONGER FEELING SOB. GI/: PT DID NOT HAVE ANY URINARY OUTPUT TODAY. PT RECIEVED DIALYSIS TODAY. PT IS SCHEDUELED TO RECIEVE DIALYSIS TOMORROW SEE PERVIOUS NOTE FOR FURTHER EVENTS. WILL CONTINUE TO CARE FOR PT TILL END OF SHIFT.
[2024-05-27] MEDS ORDERED: Acyclovir 200 MG Cap PO SCH (21:00)
[2024-05-28 04:44] LABS: Hemoglobin 8.4 g/dL (13.5-17.5)
[2024-05-28 04:54] VITALS: BP 126/109
[2024-05-28 05:01] VITALS: BP 147/103
--- NOTE | 2024-05-28 05:04 | NUR ---
SHIFT SUMMARY. SHIFT HAS BEEN UNREMARKABLE. PT AOX4, COOPERATIVE WITH CARE, ABLE TO MAKE NEEDS KNOWN. HAS BEEN ABLE TO REST COMFORTABLY THROUGHOUT MOST OF SHIFT. PAIN HAS BEEN ADEQUATELY MANAGED VIA EMAR. VITALS HAVE REMAINED STABLE. CONTINUES TO RUN SINUS ON TELE. CONTINUES TO HAVE NO URINE OUTPUT, DIALYSIS PATIENT. CALLS APPROPRIATELY FOR ASSISTANCE. BED LOCKED IN LOWEST POSITION. CALL LIGHT LEFT WITHIN REACH. CONTINUING TO MONITOR.
[2024-05-28 05:28] LABS: Albumin, Blood 2.8 g/dL (3.4-5.0); Anion Gap 12 mmol/L (3-11); Blood Urea Nitrogen 41 mg/dL (8-24); Bun/Creatinine Ratio 8.2 (12.0-20.0); CO2, Blood 31 mmol/L (21-32); Calcium, Blood 9.4 mg/dL (8.5-10.1); Chloride, Blood 94 mmol/L (98-108); Creatinine, Blood 5.02 mg/dL (0.60-1.20); Glomerular Filtration Rate 13 (60-); Glucose, Blood 127 mg/dL (70-99); Magnesium, Blood 2.3 mg/dL (1.6-2.4); Phosphorus, Blood 5.5 mg/dL (2.5-4.9); Potassium, Blood 4.1 mmol/L (3.5-5.5); Sodium, Blood 133 mmol/L (136-145)
--- NOTE | 2024-05-28 07:32 | NUR ---
PT REFUSED BLOOD SUGAR CHECK THIS AM
[2024-05-28] MEDS ORDERED: Anticoagulant Sod Citrate Soln 3 ML SYR INJ PRN (07:55)
[2024-05-28 08:25] VITALS: BP 129/109
--- NOTE | 2024-05-28 18:26 | NUR ---
PT IS INTERMITTENTLY AGITATED. HE HAS REFUSE CARAFATE THIS ENTIRE SHIFT REPORTING THAT HIS RASH TO RIGHT SIDE IS AN ALLERGIC REACTION DUE TO CARAFATE. RASH IS NOTED TO BE ALONG A SINGLE DERMATOME BELOW RIGHT AXILA, WITH VESICLES NOTED. PT REPORTS THAT RASH IS VERY PAINFUL, HE IS EDUCATED THAT HAS DIAGNOSED THIS RASH SHINGLES HE HAS DISPUTED HIS DISCAHRGE EARLIER IN THE DAY DUE TO NOT WANTING TO EXPOSE HIS SISTER TO SHINGLES. PT IS A/O X4, HE DOES HOWEVER SEEM TO HAVE A VERY POOR UNDERSTANDING OF HIS DIAGNOSIS OR PROGNOSIS. PT HAS BEEN COOPERATIVE WITH THIS RN BUT HAS BEEN QUITE VERBALLY AGRESSIVE WITH OTHER STAFF THAT HAS ENTERED THE ROOM. VSS.
[2024-05-28 18:36] VITALS: BP 143/96
[2024-05-28 20:52] VITALS: BP 130/65
[2024-05-29 03:10] VITALS: BP 138/79
--- NOTE | 2024-05-29 06:17 | NUR ---
NOC SHIFT SUMMARY PT ORIENTED X4, GRUFF AT TIMES BUT ABLE TO MAKE NEEDS KNOWN. VSS. PT STATUS CHANGE TO MEDICAL NO TELEMETRY PER CAN DRAGGER AT START OF SHIFT. TELEMETRY REMOVED. ON RA. PAIN TO BACK/RIGHT SIDE AND RASH NOTED ON R FLANK - CURRENTLY IN ISOLATION FOR SHINGLES. PRNS GIVEN WITH RELIEF - SEE EMAR FOR DETAILS. PT REFUSED AM LABS THIS MORNING - YELLED AT REVENUE LIAISON AND STATES "I DONT NEED THOSE RIGHT NOW". DISCUSSED APPROPRIATE AND RESPECTFUL COMMUNICATION AND PT RELUCTANTLY AGREED TO 0630 DRAW. PLAN FOR POSSIBLE DC TODAY VS TRANSFER TO MEDICAL FLOOR
[2024-05-29 08:51] VITALS: BP 145/50
--- NOTE | 2024-05-29 10:48 | NUR ---
PT IS PLEASANT AND COOPERATIVE WITH THIS RN AND CARE INVOLVING THIS RN. PT IS AGITATED WITH ANY ADDITIONAL STAFF THAT ENTERS THE ROOM, HE RFUSED TO SPEAK TO DR DEL RIO WHILE DR DEL RIO HAS ROUNDED THIS AM, HE THEN REFUSED LAB DRAWS. PT CONTINUES TO REFUSE CARAFATE AND LIDOCAINE PATCH, HE REQUESTS NORCO OFTEN FOR SHINGLES PAIN. HE REPORTS 9/10 PAIN HE IS LYING IN BED LEGS EXTENDED AND CROSSED. VSS. PT HAD DISPUTED D/C YESTERDAY DUE TO CONCERNS ABOUT EXPOSING FAILY AND FRIENDS TO SHINGLES, TODAY HE REPORTS THAT NUMEROUS FRIENDS AND FAMILY WILL BE ARRIVING HERE TO VISIT HIM. HE IS UPDATED THAT VISITORS WILL BE EXPECTED TO WEAR PPE. WHEN VISTORS ARRIVED THEY WERE ASKED TO JAREN PPE
--- NOTE | 2024-05-29 12:02 | NUR ---
PT IS NOW REFUSING ALL CARE STATING "I DO NOT WANT TO DEAL WITH ANY TENT WORKER AT THIS TIME".
--- NOTE | 2024-05-29 12:30 | NUR ---
PT WAS UPDATED ON D/C APPEAL STATUS BY CARE MANAGEMENT, PT ASKED THAT STAFF STAY OUT OF HIS ROOM HE IS ON THE PHONE. PT IS REFUSING BLOOD SUGARS.
[2024-05-29 14:30] VITALS: BP 174/94
--- NOTE | 2024-05-29 17:58 | NUR ---
PT CHEESE PROCESSOR LIGHT SCREAMING AT STAFF AFTER REFUSING HIS DINNER TRAY A NEW TRAY HAS NOT ARRIVED, HE IS EDUCATED THAT NEW TRAY IF AVAILABLE HAS NOT ARRIVED. HE CONTINUES SCREAMING AT CURSING AT THIS RN OVER DINNER TRAY NOT ARRIVING. PT HAD BEEN PROVIDED WITH SNACKS ABOUT 30 MINUTES PRIOR TO HIM CALLING WITH OUTBURST. NURSING DIRECTOR ONCOLOGY IS NOTIFIED, WE DISCUSSED HIM MEETING WITH HIM WITH SECURITY PRESENCE
[2024-05-29] MEDS ORDERED: ACYC200 PO (18:26)
== END 2024-05-29 18:57 | disposition home or self-care (01) | DRG 377 ==
LOC: ER 09:14 → ICUE 09:15 → MEDS 09:15 → ICUE 15:59 → PCU 15:59 → ICUE 18:04 → PCU 05-25 14:22
PROVIDERS: Emergency Medicine; Internal Medicine Nephrology; Surgery; ADMIT Internal Medicine
PROC: 30233N1 Transfusion of Nonautologous Red Blood Cells into Peripheral Vein, Percutaneous Approach (ICD-10-PCS; 2024-05-24)
PROC: 5A1D70Z Performance of Urinary Filtration, Intermittent, Less than 6 Hours Per Day (ICD-10-PCS; 2024-05-24)
PROC: 0DB78ZX Excision of Stomach, Pylorus, Via Natural or Artificial Opening Endoscopic, Diagnostic (ICD-10-PCS; principal; 2024-05-26 13:30)
DX: K25.4 Chronic or unspecified gastric ulcer with hemorrhage (principal); I21.A1 Myocardial infarction type 2; N18.6 End stage renal disease; I50.23 Acute on chronic systolic (congestive) heart failure; I13.2 Hypertensive heart and chronic kidney disease with heart failure and with stage 5 chronic kidney disease, or end stage renal disease; D62 Acute posthemorrhagic anemia; E87.1 Hypo-osmolality and hyponatremia; E87.5 Hyperkalemia; E87.70 Fluid overload, unspecified; Z99.2 Dependence on renal dialysis; J44.9 Chronic obstructive pulmonary disease, unspecified; D50.9 Iron deficiency anemia, unspecified; E78.00 Pure hypercholesterolemia, unspecified; E11.22 Type 2 diabetes mellitus with diabetic chronic kidney disease; D63.1 Anemia in chronic kidney disease; I25.10 Atherosclerotic heart disease of native coronary artery without angina pectoris; I27.20 Pulmonary hypertension, unspecified; M54.9 Dorsalgia, unspecified; G89.29 Other chronic pain; B18.2 Chronic viral hepatitis C; F17.210 Nicotine dependence, cigarettes, uncomplicated; B02.9 Zoster without complications; Z88.8 Allergy status to other drugs, medicaments and biological substances; Z79.899 Other long term (current) drug therapy; Z95.1 Presence of aortocoronary bypass graft
CPT/HCPCS: 36415; 36430; 71045; 80053; 80069; 82728; 82947; 83540; 83550; 83690; 83735; 83880; 84484; 85014; 85018; 85025; 85027; 85520; 85610; 86850; 86900; 86901; 86923; 88305; 88312; 93005; 93010; 93306; 94644; 94664; 94760; 96365; 96366; 96375; 99285-25; A9270; G0378; J0612; J0881; J1644; J1815; J2405; J2470; J2704; J3010; J7030; J7799; P9016

== ENCOUNTER 2024-07-07 11:42 | Emergency (ER) | payer OTHER ==
[~2024-07-07] VITALS: Ht 177.8 cm; Wt 79.4 kg
[~2024-07-07 11:42] MED LIST changes: +ACYC200 PO; +Isosorbide Mono30 MG PO; +PROTONIX4010 PO; +SUCR1 PO
[2024-07-07 12:12] VITALS: BP 146/70
[2024-07-07] MEDS ORDERED: Lidocaine HCl 4% Cream 5 GM TOP ONE (13:30)
[2024-07-07] MEDS ORDERED: HYDROcodone 5-APAP 325 TAB PO ONE (13:30)
[2024-07-07] MEDS ORDERED: HYDR1TAB94 PO (13:33)
[2024-07-07] MEDS ORDERED: ASPERFLEX LIDOC15 GM TOP (13:33)
== END 2024-07-07 15:13 | disposition home or self-care (01) ==
LOC: ER 11:42
DX: B02.9 Zoster without complications (principal); E78.00 Pure hypercholesterolemia, unspecified; I50.9 Heart failure, unspecified; E11.22 Type 2 diabetes mellitus with diabetic chronic kidney disease; N18.6 End stage renal disease; F17.210 Nicotine dependence, cigarettes, uncomplicated; Z99.2 Dependence on renal dialysis; Z79.899 Other long term (current) drug therapy
CPT/HCPCS: 99282; A9270

== ENCOUNTER 2024-10-21 10:55 | Observation (INO) | payer OTHER ==
[~2024-10-21] VITALS: Ht 177.8 cm; Wt 79.3 kg
[~2024-10-21 10:55] MED LIST changes: +ASPERFLEX LIDOC15 GM TOP
[2024-10-21 11:35] LABS: BASOPHILS ABSOLUTE AUTO 0.08 K/mm3 (0.00-0.23); BASOPHILS PERCENT AUTO 1 % (0-2); EOSINOPHILS PERCENT AUTO 1 % (0-6); Hematocrit 34.4 % (37.0-53.0); IMMATURE GRAN ABSOLUTE AUTO 0.02 K/mm3 (0.00-0.10); IMMATURE GRAN PERCENT AUTO 0 % (0-1); LYMPHOCYTES ABSOLUTE AUTO 0.71 K/mm3 (0.84-5.20); LYMPHOCYTES PERCENT AUTO 10 % (21-46); MONOCYTES ABSOLUTE AUTO 0.79 K/mm3 (0.16-1.47); MONOCYTES PERCENT AUTO 11 % (4-13); Mean Corpuscular HGB 30.1 pg (26.0-34.0); Mean Corpuscular Volume 94 fL (80-100); Mean Platelet Volume 9.7 fL (9.1-12.4); NEUTROPHILS PERCENT AUTO 77 % (41-73); Platelet Count 262 K/mm3 (150-400); RDW Coefficient Variation 17.2 % (11.7-14.2); RDW Standard Deviation 59.9 fL (35.1-46.3); Red Blood Cell Count 3.66 M/mm3 (4.30-5.90)
[2024-10-21 13:53] LABS: Alanine Aminotransfer (ALT/SGP 15 U/L (12-78); Albumin, Blood 3.3 g/dL (3.4-5.0); Albumin/Globulin Ratio 0.8 (0.8-1.8); Alk Phos 110 U/L (50-136); Anion Gap 18 mmol/L (3-11); Aspartate Aminotrans (AST/SGOT 11 U/L (12-37); Bilirubin, Total 0.8 mg/dL (0.1-1.0); Blood Urea Nitrogen 65 mg/dL (8-24); Bun/Creatinine Ratio 8.2 (12.0-20.0); CO2, Blood 22 mmol/L (21-32); Calcium, Blood 9.4 mg/dL (8.5-10.1); Chloride, Blood 97 mmol/L (98-108); Creatinine, Blood 7.97 mg/dL (0.60-1.20); Ethanol (Alcohol), Blood, Med <3 mg/dL; Globulin, Blood 4.4 g/dL (2.2-4.0); Glomerular Filtration Rate 7 (60-); Glucose, Blood 144 mg/dL (70-99); Potassium, Blood 6.1 mmol/L (3.5-5.5); Sodium, Blood 131 mmol/L (136-145); Total Protein, Blood 7.7 g/dL (6.4-8.2)
[2024-10-21] MEDS ORDERED: Morphine Sulfate 4 MG/1 ML Injection IV ONE (15:15)
[2024-10-21] MEDS ORDERED: HYDROcodone 5-APAP 325 TAB PO ONE (16:15)
[2024-10-21] MEDS ORDERED: HYDROcodone 5-APAP 325 TAB PO PRN (18:05)
[2024-10-21] MEDS ORDERED: Albuterol 2.5 MG/3 ML VIAL INH PRN (18:55)
[2024-10-21] MEDS ORDERED: Aspirin 325 MG TabEC PO ONE (19:00)
[2024-10-21] MEDS ORDERED: Nicotine 21 MG PATCH TOP SCH (19:00)
[2024-10-21] MEDS ORDERED: Heparin Sodium,Porcine 5,000 UNIT/0.5 ML SDV SC SCH (21:00)
[2024-10-21] MEDS ORDERED: Insulin Human Lispro 100 Units/ML 3ML Syringe SC SCH (21:00)
[2024-10-21 21:10] VITALS: BP 189/98
[2024-10-22] VITALS (21 sets, daily range): BP systolic 126–174; BP diastolic 64–93
[2024-10-22] MEDS ORDERED: DiphenhydrAMINE HCl 50 MG/ML 1ML Vial IV ONE (00:30)
--- NOTE | 2024-10-22 05:12 | NUR ---
NEW ADMIT / DONKEY ENGINE FIRER/FIREMAN SUMMARY PT ARRIVED TO ROOM AT 2100. SBA TO TRANSFER TO BED. PT A/OX4. ABLE TO ANSWER ORIENTATION QUESTIONS. PT DISCLOSED HE RECENTLY HAD SHINGLES APROX 6 MONTHS AGO. PT HAS DARK SPOTS ON HIS BACK / FLANK WHICH ITCH BUT SLKIN IS INTACT AND DRY. PT REFUSED FULL SKIN ASSESSMENT. PT ALSO REFUSED TO WEAR SCD'S. EDUCATION PROVIDED TO PT. DURING ASSESSMENT PT WAS INCONSISTENT WITH ANSWERS. PT INDICATES HE HAS LEFT VISUAL FIELD DEFICITS. PT INITALLY DENIES LEFT ARM WEAKNESS OR PAIN THEN SAID HE HAS LEFT ARM PAIN W/O NUMBNESS. PT PUBLIC RELATIONS STUDIES DIRECTOR IS WEAK. PT HAS TUMORS ON ON RIGHT HAND AND RIGHT WRIST WHICH HE REPORTS IS PAINFUL. PT HAS FISTULA IN RIGHT ARM WITH BRUITT/THRILL PRESENT. ORIENTED PT TO ROOM AND CALL LIGHT. PT HAS CRITICAL NICHOLAS POTASSIUM; PER JOSE, DR CÁRDENAS CONSULTED. PT TO HAVE DIALYSIS. PT ON TELE, NORMAL SINUS IN THE 90'S. NO ALARMS/INCIDENTS ON TELE T/O THE SHIFT. CALL LIGHT ACCESSIBLE. CARE WILL CONTINUE UNTIL REPORT GIVEN TO ONCOMING NURSE.
[2024-10-22] MEDS ORDERED: Pantoprazole Sodium 40 MG Tab PO SCH (06:00)
[2024-10-22 06:33] LABS: Hemoglobin 10.8 g/dL (13.5-17.5)
[2024-10-22 06:58] LABS: Magnesium, Blood 2.4 mg/dL (1.6-2.4)
[2024-10-22 07:16] LABS: Albumin, Blood 3.1 g/dL (3.4-5.0); Anion Gap 17 mmol/L (3-11); Blood Urea Nitrogen 68 mg/dL (8-24); Bun/Creatinine Ratio 7.9 (12.0-20.0); CO2, Blood 25 mmol/L (21-32); Chloride, Blood 95 mmol/L (98-108); Creatinine, Blood 8.56 mg/dL (0.60-1.20); Glomerular Filtration Rate 7 (60-); Glucose, Blood 88 mg/dL (70-99); Phosphorus, Blood 8.8 mg/dL (2.5-4.9); Potassium, Blood 6.2 mmol/L (3.5-5.5); Sodium, Blood 131 mmol/L (136-145)
[2024-10-22] MEDS ORDERED: Sucralfate 1000MG / 10ML UD BTL PO SCH (07:30)
[2024-10-22] MEDS ORDERED: Sevelamer Carbonate 800 MG Tab PO SCH (08:30)
[2024-10-22] MEDS ORDERED: Calcium Acetate 667 MG Gel Cap PO SCH (08:30)
[2024-10-22] MEDS ORDERED: Sodium Zirconium Cyclosilicate 10 GM Packet PO SCH (09:00)
[2024-10-22] MEDS ORDERED: Aspirin 81 MG TabEC PO SCH (09:00)
[2024-10-22] MEDS ORDERED: Atorvastatin 40 MG Tab PO SCH (09:00)
[2024-10-22] MEDS ORDERED: Loratadine 10 MG Tab PO PRN (12:45)
--- NOTE | 2024-10-22 15:37 | NUR ---
CALLED AND SPOKE WITH DR. MONIQUE REGUARDING PATIENT'S COMPLAINT OF ITCHING. HE IS REQUESTING BENADRYL. ALSO NOTIFIED DR. MONIQUE THAT THE PATIENT REFUSED TO GO TO MRI AT 1400 TODAY AND THAT THEY WOULD HAVE TO TRY AGAIN TOMORROW. SHE STATES THAT SHE WILL REVIEW AND PLACE ORDERS; REQUESTED SOMETHING TOPICAL TOO IF POSSIBLE. AWAITING ORDERS
--- NOTE | 2024-10-22 16:20 | NUR ---
ROUNDED ON PATIENT, CURRENTLY SLEEPING.
[2024-10-22] MEDS ORDERED: Hydrocortisone 1% Ointment 30 GM Tube TOP PRN (16:25)
[2024-10-22] MEDS ORDERED: DiphenhydrAMINE HCL 25 MG Cap PO PRN (16:25)
--- NOTE | 2024-10-22 17:04 | NUR ---
SHIFT SUMMARY: PATIENT REFUSED TO GO TO MRI THIS AFTERNOON; THEY WILL HAVE TO ATTEMPT TOMORROW, DISCUSSED THE IMPORTANCE TO PATIENT THE NEED TO HAVE AN MRI. PATIENT VOICES UNDERSTANDING AND STATED HE WANTED TO SLEEP. PATIENT'S BEST FRIEND AT BEDSIDE AND TOLD PATIENT THAT HE NEEDS TO DO WHAT NEEDS TO BE DONE. PATIENT CONTINUES TO C/O PAIN IN HIS L ARM, MEDICATING NEEDED. PATIENT REPORTS PARTIAL VISION IN L EYE PERIODICALLY, BUT STATES THAT IT IS MOSTLY WHITE WITH SOME SPOTS. PATIENT HAS DIALYSIS TODAY AND PLANS ON GOING BACK TOMORROW. PATIENT IN ROOM, SITTING AT EDGE OF BED, FRIEND AT BEDSIDE, CALL LIGHT WITIN REACH, NO EVENTS ON TELE, NO SIGNS OR SYMPTOMS OF DISTRESS, PLAN OF CARE ONGOING.
[2024-10-23] VITALS (16 sets, daily range): BP systolic 131–180; BP diastolic 67–98
[2024-10-23 05:11] LABS: Hematocrit 34.3 % (37.0-53.0); Hemoglobin 11.1 g/dL (13.5-17.5)
[2024-10-23 05:35] LABS: Albumin, Blood 3.2 g/dL (3.4-5.0); Anion Gap 15 mmol/L (3-11); Blood Urea Nitrogen 46 mg/dL (8-24); Bun/Creatinine Ratio 7.1 (12.0-20.0); CO2, Blood 26 mmol/L (21-32); Calcium, Blood 9.1 mg/dL (8.5-10.1); Chloride, Blood 95 mmol/L (98-108); Creatinine, Blood 6.46 mg/dL (0.60-1.20); Glomerular Filtration Rate 9 (60-); Glucose, Blood 80 mg/dL (70-99); Magnesium, Blood 2.4 mg/dL (1.6-2.4); Phosphorus, Blood 7.2 mg/dL (2.5-4.9); Potassium, Blood 5.7 mmol/L (3.5-5.5); Sodium, Blood 130 mmol/L (136-145)
--- NOTE | 2024-10-23 05:59 | NUR ---
FOOD SAFETY DIRECTOR SUMMARY PT A/OX4. NO ACUTE CHANGES. PT NEURO REMAINS UNCHANGED. PT CONTINUES TO EXHIBIT LEFT VISUAL FIELD DEFICITS AND LEFT ARM RADIATING PAIN. PT CONTINUES TO COMPLAIN OF EXTREME ITCHY SKIN. PT MEDICATED WITH BENADRYL AND HYDROCORTISONE CREAM FOR ITCHING SKIN. PT C/O OF 9-10/10 PAIN IN LEFT ARM; MED PER MAR. PT ABLE TO MAKE NEEDS KNOWN. CALL LIGHT ACCESSIBLE. CARE WILL CONTINUE UNTIL REPORT GIVEN TO ONCOMING NURSE.
--- NOTE | 2024-10-23 08:20 | NUR ---
ADVISED PATIENT TO DRINK SOME JUICE WITH A BLOOD SUGAR OF 68; PT REFUSED AND WENT BACK TO SLEEP. PATIENT RESPONDS TO VERBAL STIMULI; IRRITABALE.
[2024-10-23] MEDS ORDERED: PredniSONE 20 MG Tab PO SCH (09:00)
[2024-10-23] MEDS ORDERED: Sodium Polystyrene Sulfonate 15GM / 60ML BTL PO SCH (09:00)
[2024-10-23] MEDS ORDERED: HyDROXyzine HCl 25 MG Tab PO SCH (09:00)
[2024-10-23] MEDS ORDERED: Nitroglycerin 0.4 MG SUBL SL PRN (13:55)
[2024-10-23] MEDS ORDERED: Gabapentin 300 MG Cap PO SCH ×2 (14:00)
--- NOTE | 2024-10-23 16:45 | NUR ---
SHIFT SUMMARY: PATIENT HAD DIALYSIS TODAY AND COMPLETED HIS HEAD MRI. HE CONTINUES TO C/O VISION DEFICIT IN HIS L EYE AND PAIN IN HIS L ARM. HE HAS BEEN COMPLIANT/RESISTANT/NON COMPLIANT THROUGHOUT HIS STAY. HE IS CURRENTLY IN BED POST SHOWER, RESTING, RESPIRATIONS EVEN AND UNLABORED, NO EVENTS ON TELE, CALL LIGHT WITHIN REACH, NO SIGNS OR SYMPTOMS OF DISTRESS,PLAN OF CARE ONGOING.
[2024-10-24] VITALS (17 sets, daily range): BP systolic 130–172; BP diastolic 69–97
--- NOTE | 2024-10-24 03:14 | NUR ---
SHIFT SUMMARY: AOX4, BUT FORGETFUL AND EASILY AGITATED. NO INCREASED SYMPTOMS OF VISUAL DISTURBANCES. PT HAS BEEN C/O ITCHING THIS SHIFT, STEROID CREAM APPLIED. PT WAS UPSET THAT THE BENADRYL ORDER WAS DC'D, BUT EXPLAINED THAT HE WILL RECIEVE ATARAX IN THE MORNING. PT RECIEVED A PARTIAL BATH TO HELP SOOTHE ITCHING, WITH SOME RELIEF. PT ALSO C/O PAIN, MEDICATED PER eMAR. PT IS STILL OLIGURIC, BUT HAD RECIEVED HEMODIALYSIS YESTERDAY. NO OTHER ISSUES AT THIS TIME. CALL LIGHT IS WITHIN REACH. BED IS LOW AND LOCKED.
[2024-10-24 04:53] LABS: Hematocrit 32.3 % (37.0-53.0); Hemoglobin 10.4 g/dL (13.5-17.5)
[2024-10-24 05:30] LABS: Albumin, Blood 3.1 g/dL (3.4-5.0); Anion Gap 14 mmol/L (3-11); Blood Urea Nitrogen 41 mg/dL (8-24); Bun/Creatinine Ratio 7.2 (12.0-20.0); CO2, Blood 28 mmol/L (21-32); Calcium, Blood 9.3 mg/dL (8.5-10.1); Chloride, Blood 92 mmol/L (98-108); Creatinine, Blood 5.66 mg/dL (0.60-1.20); Glomerular Filtration Rate 11 (60-); Glucose, Blood 183 mg/dL (70-99); Magnesium, Blood 2.4 mg/dL (1.6-2.4); Phosphorus, Blood 6.1 mg/dL (2.5-4.9); Sodium, Blood 129 mmol/L (136-145)
[2024-10-24] MEDS ORDERED: Gabapentin 300 MG Cap PO SCH (09:00)
[2024-10-24] MEDS ORDERED: AmLODIPine Besylate 5 MG Tab PO SCH (09:00)
[2024-10-24] MEDS ORDERED: Isosorbide Mononitrate 30 MG TABCR PO SCH (09:00)
[2024-10-24] MEDS ORDERED: AMLO5 PO (12:01)
[2024-10-24] MEDS ORDERED: ATOR40TA PO (12:02)
[2024-10-24] MEDS ORDERED: Calcium Acetat667 MG PO (12:02)
[2024-10-24] MEDS ORDERED: Aspir 8181 MG PO (12:02)
[2024-10-24] MEDS ORDERED: HYDHCL25 PO (12:03)
[2024-10-24] MEDS ORDERED: NICO21TP TOP (12:03)
[2024-10-24] MEDS ORDERED: SODPOL15SA PO (12:04)
[2024-10-24] MEDS ORDERED: SEVEC800 PO (12:04)
[2024-10-24] MEDS ORDERED: SUCR1 PO (12:05)
--- NOTE | 2024-10-24 13:23 | NUR ---
PT LEFT WITH DC INSTRUCTIONS. ALL PIVS REMOVED. D/C PACKET IN HAND. PT HAS NO QUESTIONS OR CONCERNS
== END 2024-10-24 13:00 | disposition home or self-care (01) ==
LOC: ER 10:55 → ERHOLD 10:56 → MEDS 10:56
PROVIDERS: Internal Medicine Nephrology; Student in an Organized Health Care Education/Training Program; ADMIT Internal Medicine
DX: H54.62 Unqualified visual loss, left eye, normal vision right eye (principal); E87.5 Hyperkalemia; E87.70 Fluid overload, unspecified; E87.1 Hypo-osmolality and hyponatremia; E83.39 Other disorders of phosphorus metabolism; D64.9 Anemia, unspecified; K27.9 Peptic ulcer, site unspecified, unspecified as acute or chronic, without hemorrhage or perforation; B02.9 Zoster without complications; R53.1 Weakness; R20.0 Anesthesia of skin; I13.2 Hypertensive heart and chronic kidney disease with heart failure and with stage 5 chronic kidney disease, or end stage renal disease; E11.22 Type 2 diabetes mellitus with diabetic chronic kidney disease; N18.6 End stage renal disease; I50.20 Unspecified systolic (congestive) heart failure; I25.10 Atherosclerotic heart disease of native coronary artery without angina pectoris; J44.9 Chronic obstructive pulmonary disease, unspecified; E78.5 Hyperlipidemia, unspecified; F17.210 Nicotine dependence, cigarettes, uncomplicated; Z86.73 Personal history of transient ischemic attack (TIA), and cerebral infarction without residual deficits; Z99.2 Dependence on renal dialysis; Z88.8 Allergy status to other drugs, medicaments and biological substances; Z79.899 Other long term (current) drug therapy
CPT/HCPCS: 36415; 70450; 70496; 70498; 70551; 71045; 80053; 80069; 80320; 82947; 83735; 85014; 85018; 85025; 85651; 85730; 86140; 93005; 93010; 94760; 94762; 96372; 96374-59; 96375; 99285-25; A9270; G0257; G0378; J1200; J1644; J2270; J7512; Q9967

== ENCOUNTER 2024-11-14 12:24 | Inpatient (IN) | payer OTHER ==
[2024-11-14] VITALS (20 sets, daily range): BP systolic 135–160; BP diastolic 39–72
[~2024-11-14] VITALS: Ht 167.6 cm; Wt 72.6 kg
[~2024-11-14 12:24] MED LIST changes: +AMLO5 PO; +Aspir 8181 MG PO; +Calcium Acetat667 MG PO; +HYDHCL25 PO; +SEVEC800 PO; +SODPOL15SA PO
[2024-11-14] MEDS ORDERED: CARV6.25 PO (13:50)
[2024-11-14] MEDS ORDERED: CEFTRIAXONE2 G1 IV (13:50)
[2024-11-14] MEDS ORDERED: HYDR1TAB94 PO (13:51)
[2024-11-14] MEDS ORDERED: ALBU90OI INH (13:51)
[2024-11-14 14:17] LABS: Ethanol (Alcohol), Blood, Med <3 mg/dL
[2024-11-14 14:20] LABS: Alanine Aminotransfer (ALT/SGP 8 U/L (12-78); Albumin, Blood 2.9 g/dL (3.4-5.0); Albumin/Globulin Ratio 0.7 (0.8-1.8); Alk Phos 95 U/L (50-136); Anion Gap 12 mmol/L (3-11); Aspartate Aminotrans (AST/SGOT 10 U/L (12-37); Bilirubin, Total 0.6 mg/dL (0.1-1.0); Blood Urea Nitrogen 45 mg/dL (8-24); Bun/Creatinine Ratio 5.2 (12.0-20.0); CO2, Blood 27 mmol/L (21-32); Calcium, Blood 9.9 mg/dL (8.5-10.1); Chloride, Blood 99 mmol/L (98-108); Globulin, Blood 4.4 g/dL (2.2-4.0); Glomerular Filtration Rate 7 (60-); Glucose, Blood 107 mg/dL (70-99); Sodium, Blood 132 mmol/L (136-145); Total Protein, Blood 7.3 g/dL (6.4-8.2)
[2024-11-14] MEDS ORDERED: Calcium Gluconate 10% 2,000 MG in NS 50 ML IV ONE (14:20)
[2024-11-14] MEDS ORDERED: CefTRIAXone Sodium 2,000 MG in NS 100 ML IV ONE (14:25)
[2024-11-14 14:35] LABS: BASOPHILS PERCENT AUTO 1 % (0-2); EOSINOPHILS ABSOLUTE AUTO 0.09 K/mm3 (0.00-0.68); EOSINOPHILS PERCENT AUTO 1 % (0-6); Hematocrit 36.1 % (37.0-53.0); Hemoglobin 11.7 g/dL (13.5-17.5); IMMATURE GRAN ABSOLUTE AUTO 0.06 K/mm3 (0.00-0.10); IMMATURE GRAN PERCENT AUTO 1 % (0-1); LYMPHOCYTES ABSOLUTE AUTO 0.52 K/mm3 (0.84-5.20); LYMPHOCYTES PERCENT AUTO 4 % (21-46); MONOCYTES ABSOLUTE AUTO 1.16 K/mm3 (0.16-1.47); MONOCYTES PERCENT AUTO 10 % (4-13); Mean Corpuscular HGB 29.7 pg (26.0-34.0); Mean Corpuscular HGB Conc 32.4 g/dL (31.5-36.5); Mean Corpuscular Volume 92 fL (80-100); Mean Platelet Volume 8.8 fL (9.1-12.4); NEUTROPHILS ABSOLUTE AUTO 9.96 K/mm3 (1.96-9.15); NEUTROPHILS PERCENT AUTO 84 % (41-73); Platelet Count 336 K/mm3 (150-400); RDW Coefficient Variation 17.2 % (11.7-14.2); Red Blood Cell Count 3.94 M/mm3 (4.30-5.90); White Blood Cell Count 11.89 K/mm3 (4.00-11.30)
[2024-11-14 15:01] LABS: Base Excess Venous 1.3 mmol/L; Bicarbonate Venous 25.7 mmol/L (24.0-30.0); PCO2 Venous 35.2 mmHg (38-42); pH Blood Venous 7.46 (7.34-7.37)
[2024-11-14 15:27] LABS: Source, Urine Straight Cath
[2024-11-14 15:30] LABS: Appearance, Urine Clear (Clear); Bilirubin, Urine Neg (Neg); Blood, Urine 1+ (Neg); Color, Urine Yellow (P-Yellow); Glucose Qualitative, Urine 1+ (Neg); Ketones, Urine Neg (Neg); Leukocyte Esterase, Urine Neg (Neg); Nitrite, Urine Neg (Neg); Protein, Urine 4+ (Neg); Specific Gravity, Urine 1.015 (1.003-1.022); Urobilinogen, Urine NORM (Normal)
[2024-11-14] MEDS ORDERED: CALCIUM GLUC IN NACL, ISO-OSM 100 ML IV ONE (15:30)
[2024-11-14 15:40] LABS: Spermatozoa Rare /hpf
[2024-11-14 15:41] LABS: Bacteria Not Seen /hpf; Squamous Epithelial Cells Rare /hpf (Few); White Blood Cells, Urine 0-2 /hpf (0-5)
[2024-11-14 15:42] LABS: Mucus Light (0-Heavy)
[2024-11-14 15:46] LABS: U Opiates Screen DETECTED
[2024-11-14 15:47] LABS: U Amphetamine Screen Not Detected; U Barbituate Screen Not Detected; U Benzodiazapine Screen Not Detected; U Buprenorphine Screen Not Detected; U Cannabinoids Screen Not Detected; U Cocaine Screen Not Detected; U Methadone Screen Not Detected; U Methamphetamine Screen Not Detected; U Oxycodone Screen Not Detected; U Phencyclidine Screen Not Detected
[2024-11-14] MEDS ORDERED: Magnesium Hydroxide Conc 10 ML UDC PO PRN (17:15)
[2024-11-14] MEDS ORDERED: Ondansetron HCl 2 MG / ML 2ML Vial IV PRN (17:15)
[2024-11-14] MEDS ORDERED: Bisacodyl 10 MG Supp PR PRN (17:15)
[2024-11-14] MEDS ORDERED: Acetaminophen 325 MG TABLET PO PRN (17:15)
[2024-11-14] MEDS ORDERED: Calcium Acetate 667 MG Gel Cap PO SCH ×2 (17:30)
[2024-11-14] MEDS ORDERED: Sevelamer Carbonate 800 MG Tab PO SCH (17:30)
[2024-11-14] MEDS ORDERED: Albuterol HFA200 ACT/6.7 GM INH INH PRN (17:45)
[2024-11-14] MEDS ORDERED: Famotidine 10 MG/ML 2ML Vial IV SCH (21:00)
[2024-11-14] MEDS ORDERED: Lactobacil 2-S.Thermo-Bifido 1 1 Cap PO SCH (21:00)
[2024-11-14] MEDS ORDERED: Gabapentin 300 MG Cap PO SCH (21:00)
[2024-11-14] MEDS ORDERED: Sennosides 8.6 MG Tab PO SCH (21:00)
[2024-11-14] MEDS ORDERED: Heparin Sodium,Porcine 5,000 UNIT/0.5 ML SDV SC SCH (21:00)
[2024-11-14] MEDS ORDERED: Docusate Sodium 100 MG Cap PO SCH (21:00)
[2024-11-15] VITALS (25 sets, daily range): BP systolic 111–160; BP diastolic 34–73
[2024-11-15 04:51] LABS: BASOPHILS ABSOLUTE AUTO 0.12 K/mm3 (0.00-0.23); BASOPHILS PERCENT AUTO 1 % (0-2); EOSINOPHILS ABSOLUTE AUTO 0.12 K/mm3 (0.00-0.68); EOSINOPHILS PERCENT AUTO 1 % (0-6); Hemoglobin 11.6 g/dL (13.5-17.5); IMMATURE GRAN ABSOLUTE AUTO 0.07 K/mm3 (0.00-0.10); IMMATURE GRAN PERCENT AUTO 1 % (0-1); LYMPHOCYTES ABSOLUTE AUTO 0.63 K/mm3 (0.84-5.20); LYMPHOCYTES PERCENT AUTO 6 % (21-46); MONOCYTES ABSOLUTE AUTO 1.65 K/mm3 (0.16-1.47); MONOCYTES PERCENT AUTO 15 % (4-13); Mean Corpuscular HGB 29.4 pg (26.0-34.0); Mean Corpuscular HGB Conc 32.2 g/dL (31.5-36.5); Mean Corpuscular Volume 91 fL (80-100); Mean Platelet Volume 8.9 fL (9.1-12.4); NEUTROPHILS ABSOLUTE AUTO 8.66 K/mm3 (1.96-9.15); NEUTROPHILS PERCENT AUTO 77 % (41-73); Platelet Count 296 K/mm3 (150-400); RDW Standard Deviation 56.8 fL (35.1-46.3); Red Blood Cell Count 3.94 M/mm3 (4.30-5.90); White Blood Cell Count 11.25 K/mm3 (4.00-11.30)
[2024-11-15 05:22] LABS: Albumin, Blood 2.8 g/dL (3.4-5.0); Anion Gap 11 mmol/L (3-11); Blood Urea Nitrogen 25 mg/dL (8-24); Bun/Creatinine Ratio 4.3 (12.0-20.0); CO2, Blood 32 mmol/L (21-32); Calcium, Blood 9.7 mg/dL (8.5-10.1); Chloride, Blood 95 mmol/L (98-108); Creatinine, Blood 5.76 mg/dL (0.60-1.20); Glomerular Filtration Rate 11 (60-); Glucose, Blood 86 mg/dL (70-99); Magnesium, Blood 2.5 mg/dL (1.6-2.4); Phosphorus, Blood 4.8 mg/dL (2.5-4.9); Potassium, Blood 4.4 mmol/L (3.5-5.5); Sodium, Blood 134 mmol/L (136-145)
--- NOTE | 2024-11-15 06:28 | NUR ---
SHIFT SUMMARY/ADMISSION RECEIVED PT FROM DIALYSIS AT 2144, DIALYSIS REMOVED 2 LITERS, NOTED RIGHT UPPER ARM FISTULA +BRUITT/THRILL, DRESSING OF GAUZE AND PAPER TAPE IN PLACE AND PATENT, NO BLEEDING NOTED, PT LETHARGIC, OPENS EYES WITH ORAL SUCTION AND REPOSITIONING, ONLY STATED " YES" WHEN ASKED " IS YOUR NAME QUETA" DOES NOT ANSWER ANY OTHER QUESTIONS OR RESPOND VERBALLY, FOLLOWS COMMANDS FOR CONTRERAS HAND GRASPS AND BLE ROM, PT REMAINS IN C-COLLAR FOR PREVIOUS ADMIT OF CERVICAL DISCITIS WITH ABSCESS WITH DISCHARGE ON Friday11/11/24, PIV TO LEFT AC PATENT AND CAPPED, AFEBRILE, VSS, ON 2 PLM NC WITH SPO2 >90%, SCHEDULED MEDS HELD DUE TO LETHARGIC, CBG EVERY 6 HOURS, NOTED CBG 79 AT 0600, NOTIFIED MD WITH ORDERS RECEIVED TO INCREASE CBG TO EVERY 4 HOURS, DR CÁRDENAS AT BEDSIDE AT 0500 WITH NEW ORDER RECEIVED FOR AMMONIA LEVEL, RESULTS CALLED TO DR CÁRDENAS AT 0630 WITH NO NEW ORDERS, SIDE RAILS UP X3 BED IN LOW POSITION, CALL LIGHT IN REACH
[2024-11-15] MEDS ORDERED: Carvedilol 6.25 MG Tab PO SCH (08:00)
[2024-11-15] MEDS ORDERED: Aspirin 81 MG TabEC PO SCH (09:00)
[2024-11-15] MEDS ORDERED: Atorvastatin 40 MG Tab PO SCH (09:00)
[2024-11-15] MEDS ORDERED: CefTRIAXone Sodium 1,000 MG in NS 100 ML IV SCH (09:00)
[2024-11-15] MEDS ORDERED: Isosorbide Mononitrate 30 MG TABCR PO SCH (09:00)
[2024-11-15] MEDS ORDERED: AmLODIPine Besylate 5 MG Tab PO SCH (09:00)
--- NOTE | 2024-11-15 12:02 | NUR ---
PT BACK TO RMPT FINISHED DIALYSIS AND IS BACK IN HIS RM. PT IS AROUSABLE TO VOICE BUT REMAINS LETHARGIC. PT ANSWERING QUESTIONS APPROPRIATELY WHEN AWAKE. PT'S VSS AND MONITOR SHOWING SR @ 90. SPO2 >94% ON RM AIR. PT NPO PENDING SPEECH THERAPY EVAL. CBG WNL UPON RETURN TO UNIT.
[2024-11-15] MEDS ORDERED: Lidocaine 4% 1 Patch TOP SCH (14:00)
[2024-11-15] MEDS ORDERED: Insulin Regular 100 UNIT/ML 10ML Vial SC SCH ×2 (16:30)
--- NOTE | 2024-11-15 18:15 | NUR ---
DAY SHIFT SUMMARY PT VERY LETHARGIC THIS AM BUT CLEARED T/O THE DAY BECOMING ALERT AND USING THE CALL LIGHT TO MAKE HIS NEEDS KNOWN. PT NPO THIS AM DUE TO CONCERN THAT HE WAS ASPIRATING SO ST EVAL ORDERED AND DIET CHANGED PER SPEECH THERAPIST. PT HAS DIALYSIS THIS SHIFT. PT'S MONITOR SHOWING SR 80'S-90'S THIS SHIFT. BP WNL AND STABLE. SPO2 >92% ON RM AIR. WILL REPORT TO ONCOMING RN
--- NOTE | 2024-11-15 20:28 | NUR ---
ASSUMED CARE OF THIS PT AT 1900. PT HAS BEEN SLEEPING ON AND OFF SINCE THE START OF SHIFT. HE WILL AWAKEN TO VERBAL AND PHYSICAL STIMULIS HE IS CONFUSED ON WHERE HE IS HE THINKS HE IS AT HOME. EVEN WHEN PATIENT IS CONFUSED HE IS COOPERATIVE WITH CARE AND KIND TO THE RN. REPOSIONED PATIENT FOR COMFORT, PILLS GIVEN IN APPLE SAUCE ON A SPOON. ORAL CARE OFFERED PATIENT DENIED AT THIS TIME WILL REATTEMP LATER. VSS, PATIENT DESATTED TO 86% WHILE ASLEEP PLACED ON 2L NC. CALL LIGHT IN REACH, BED IN LOWEST POSTION, SIDE RAILS UP X3.
[2024-11-16] VITALS (15 sets, daily range): BP systolic 103–173; BP diastolic 46–88
[2024-11-16 04:15] LABS: Hematocrit 35.7 % (37.0-53.0); Hemoglobin 11.4 g/dL (13.5-17.5)
[2024-11-16 04:55] LABS: Albumin, Blood 2.6 g/dL (3.4-5.0); Anion Gap 7 mmol/L (3-11); Blood Urea Nitrogen 24 mg/dL (8-24); Bun/Creatinine Ratio 5.3 (12.0-20.0); CO2, Blood 36 mmol/L (21-32); Calcium, Blood 9.6 mg/dL (8.5-10.1); Chloride, Blood 95 mmol/L (98-108); Creatinine, Blood 4.51 mg/dL (0.60-1.20); Glomerular Filtration Rate 14 (60-); Glucose, Blood 114 mg/dL (70-99); Magnesium, Blood 2.3 mg/dL (1.6-2.4); Phosphorus, Blood 4.4 mg/dL (2.5-4.9); Sodium, Blood 134 mmol/L (136-145)
--- NOTE | 2024-11-16 05:48 | NUR ---
NOC SHIFT SUMMARY PT REMAINED CONFUSED AT TIMES DURING SHIFT MAINLY ON LOCATION AND DATE. COOPERATIVE WITH CARES DID HAVE COMPLAINTS OF PAIN WAS MEDICATED PER EMAR AND REPOSTIONED. ORAL CARE PROVIDED WHEN PATIENT WOULD ALLOW IT. HE WILL USE HIS CALL LIGHT AT TIMES AND OTHER TIMES HE WOULD CALL OUT. BREIF CLEAN AND DRY. C-COLLAR REMAINS IN PLACE. ON RA SATTING 93% CURRENTLY. CURRENLTY SITTING UP IN BED WATCHING TV, BED IN LOWEST POSTION CALL LIGHT IN REACH. WILL REPORT TO ONCOMING RN.
[2024-11-16] MEDS ORDERED: Gabapentin 100 MG Cap PO SCH (09:00)
[2024-11-16] MEDS ORDERED: Nicotine 21 MG PATCH TOP SCH (09:00)
--- NOTE | 2024-11-16 18:41 | NUR ---
PT SUMAMARY; PT TRANSITIONED TO MEDICAL STATUS NO TELE. PT HAD DIALYSIS THIS MORNING TOLERATED WELL, SBP WAS SOFT AFTER SBP IN THE 100'S, SLOWLY CAME UP TO 125'S THIS AFTERNOON. PT HAS BEEN PLEASANT AND COOPERATIVE WITH CARES. LETHARGIC AFTER DIALYSIS BUT ABLE TO EAT LUNCH AND SISTER CAME BY TO ROSY PT'S CELLPHONE AND EYEGLASSES. PT C/O NECK AND RIGHT ARM PAIN MEDICATED WITH TYLENOL. C COLLAR REMAIEND IN PLACE SKIN CHECK DONE NO BREAK OUTS AT THSI TIME. PT NO VOID FOR THE SHIFT. Q2 TURNS FOR COMFORT. PT HAS BEEN ABLE TO MOVE SELF IN BED ABLE TO PARTICIPATE WITH PHYSICAL THERAPIST. REPORT GIVEN TO SHARRON OLGUIN, WILL TRANSFER PT TO 332 WITH ALL BELONGINGS SENT
[2024-11-17 03:08] VITALS: BP 174/69
--- NOTE | 2024-11-17 05:05 | NUR ---
SHIFT SUMMARY PT HAS BEEN RESTING COMFORTABLY IN BED OVERNIGHT. HE WAS A TRANSFER FROM PCU. PT HAS BEEN AOX3, CALM AND COOPERATIVE. HE HAS CALLED APPROPRIATELY. 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 PT REQUIRES ASSISTANCE WITH FEEDING. PT ALSO ON BEDREST, W/ 2PA TURNS. PT HAS RA FISTULA. PT HAS NOT PRODUCED URINE OVERNIGHT. NO ACUTE EVENTS OVERNIGHT. PT HAS HAD NO COMPLAINTS.
[2024-11-17 06:09] LABS: Hematocrit 32.7 % (37.0-53.0); Hemoglobin 10.6 g/dL (13.5-17.5)
[2024-11-17 06:32] LABS: Albumin, Blood 2.5 g/dL (3.4-5.0); Anion Gap 9 mmol/L (3-11); Blood Urea Nitrogen 27 mg/dL (8-24); Bun/Creatinine Ratio 5.9 (12.0-20.0); CO2, Blood 35 mmol/L (21-32); Calcium, Blood 9.6 mg/dL (8.5-10.1); Chloride, Blood 95 mmol/L (98-108); Glomerular Filtration Rate 14 (60-); Glucose, Blood 108 mg/dL (70-99); Magnesium, Blood 2.2 mg/dL (1.6-2.4); Phosphorus, Blood 3.6 mg/dL (2.5-4.9); Potassium, Blood 3.8 mmol/L (3.5-5.5); Sodium, Blood 135 mmol/L (136-145)
[2024-11-17 07:29] VITALS: BP 138/49
[2024-11-17 11:00] LABS: HEPATITIS B SURFACE ANTIBODY >1000.00 IU/L
[2024-11-17] MEDS ORDERED: Vancomycin HCL 1,500 MG in NS 250 ML IV SCH (13:00)
[2024-11-17] MEDS ORDERED: NS 250 ML IV PRN (13:20)
[2024-11-17 14:38] LABS: HBV CORE ANTIBODIES,TOTAL Negative (Negative)
[2024-11-17 15:56] VITALS: BP 117/45
[2024-11-17] MEDS ORDERED: CefTRIAXone Sodium 1,000 MG in NS 100 ML IV ONE (16:35)
--- NOTE | 2024-11-17 17:40 | NUR ---
NO ACUTE EVENTS, REPOSTIIONED THROUGH OUT THE DAY, FEEDER, VERY WEEK,2 P MAX ASSIST TO [facility] MEALS FOR TOMORROW ORDERED, NO DIALYSIS, CALL LIGHT WITH IN REACH, WILL RLEAY TO PM RN
[2024-11-17 19:16] VITALS: BP 101/41
[2024-11-18] MEDS ORDERED: FentaNYL Citrate 50 MCG/ML 2 ML Injection IV PRN (00:20)
[2024-11-18 03:21] VITALS: BP 127/30
--- NOTE | 2024-11-18 04:35 | NUR ---
SHIFT SUMMARY PT HAS BEEN RESTING IN BED OVERNIGHT. PT HAS BEEN AOX3, CALM AND COOPERATIVE. PT HAS CALLED APPROPRIATELY OVERNIGHT. HE HAS BEEN ON BEDREST, WITH WEAKNESS X4, 2PA W/ REPOSITIONING AND TURNS. HE REQUIRES FEEDING ASSISTANCE WELL. PT HAS BEEN C/O PAIN SOLOMON IN R SHOULDER AND FEET. PT HAS HAD RELIEF IN FORM OF MEDICATIONS, REST, AND REPOSITIONING. PT HAS HAD NO OTHER COMPLAINTS. NO ACUTE EVENTS OVERNIGHT.
[2024-11-18 06:24] LABS: Hematocrit 32.1 % (37.0-53.0); Hemoglobin 10.4 g/dL (13.5-17.5)
[2024-11-18 06:49] LABS: Albumin, Blood 2.6 g/dL (3.4-5.0); Anion Gap 9 mmol/L (3-11); Blood Urea Nitrogen 39 mg/dL (8-24); CO2, Blood 34 mmol/L (21-32); Calcium, Blood 9.8 mg/dL (8.5-10.1); Chloride, Blood 93 mmol/L (98-108); Creatinine, Blood 5.56 mg/dL (0.60-1.20); Glomerular Filtration Rate 11 (60-); Glucose, Blood 125 mg/dL (70-99); Magnesium, Blood 2.4 mg/dL (1.6-2.4); Phosphorus, Blood 4.2 mg/dL (2.5-4.9); Sodium, Blood 132 mmol/L (136-145); Vancomycin, Random 33.2 ug/mL
[2024-11-18 07:37] VITALS: BP 142/28
[2024-11-18 07:38] VITALS: BP 148/66
--- NOTE | 2024-11-18 08:50 | NUR ---
DIALYSIS UPDATE: PT REFUSING DIALYSIS TODAY. THIS RN VERIFIED WITH DIALYSIS NURSE THAT DIALYSIS WAS NOT DONE YESTERDAY. DIALYSIS NURSE CONFIRMED PT RECEIVED DIALYSIS ON THE . PT CONTINUES TO REFUSE TO GO. DR CÁRDENAS UPDATED AND STATED WE WILL TRY AGAIN TOMORROW.
[2024-11-18] MEDS ORDERED: CefTRIAXone Sodium 2,000 MG in NS 100 ML IV SCH (09:00)
[2024-11-18] MEDS ORDERED: Methyl Salicylate/Menth/Camph 57 GM TUBE TOP PRN (13:40)
[2024-11-18] MEDS ORDERED: BISA10S PR (15:27)
[2024-11-18] MEDS ORDERED: Acetaminophen650 M1 PO (15:27)
[2024-11-18] MEDS ORDERED: DOCU100 PO (15:28)
[2024-11-18] MEDS ORDERED: METSALMENC TOP (15:28)
[2024-11-18] MEDS ORDERED: FAMO10 PO (15:29)
[2024-11-18] MEDS ORDERED: [UNRECOGNIZED DRUG - OTHER] SC (15:30)
[2024-11-18] MEDS ORDERED: PAIN RELIEF PA1 EACH TOP (15:30)
[2024-11-18] MEDS ORDERED: SENN187 PO (15:31)
[2024-11-18 15:49] VITALS: BP 153/84
[2024-11-18] MEDS ORDERED: VANCO IV (16:05)
--- NOTE | 2024-11-18 16:29 | NUR ---
DISCHARGE NOTE: PT TRANSFERED TO [facility] VIA AMBULANCE TRANSPORT AT APPROX 1615. THIS RN GAVE REPORT TO [facility] NURSE. PACKET SENT WITH PATIENT FOR FACILITY. PT LEFT WITH PERSONAL BELONGINGS AND NECK BRACE ON.
[2024-11-18 17:48] LABS: HEPATITIS B SURFACE ANTIGEN Negative (Negative)
[2024-11-18] MEDS ORDERED: Famotidine 20 MG Tab PO SCH (21:00)
== END 2024-11-18 16:11 | DRG 91 ==
LOC: ER 12:24 → ERHOLD 17:10 → PCU 17:10 → MEDS 17:10 → PCU 21:45 → MEDS 11-16 19:01
PROVIDERS: Emergency Medicine; Internal Medicine Nephrology; Student in an Organized Health Care Education/Training Program; ADMIT Hospitalist
DX: G92.8 Other toxic encephalopathy (principal); N18.6 End stage renal disease; E87.1 Hypo-osmolality and hyponatremia; M46.22 Osteomyelitis of vertebra, cervical region; I13.0 Hypertensive heart and chronic kidney disease with heart failure and stage 1 through stage 4 chronic kidney disease, or unspecified chronic kidney disease; I50.22 Chronic systolic (congestive) heart failure; Z99.2 Dependence on renal dialysis; M46.42 Discitis, unspecified, cervical region; E87.5 Hyperkalemia; E87.70 Fluid overload, unspecified; E11.22 Type 2 diabetes mellitus with diabetic chronic kidney disease; E78.00 Pure hypercholesterolemia, unspecified; I25.10 Atherosclerotic heart disease of native coronary artery without angina pectoris; J44.9 Chronic obstructive pulmonary disease, unspecified; G89.29 Other chronic pain; E11.69 Type 2 diabetes mellitus with other specified complication; F17.210 Nicotine dependence, cigarettes, uncomplicated; F14.90 Cocaine use, unspecified, uncomplicated; E11.621 Type 2 diabetes mellitus with foot ulcer; L89.621 Pressure ulcer of left heel, stage 1; F11.10 Opioid abuse, uncomplicated; D63.1 Anemia in chronic kidney disease; E21.3 Hyperparathyroidism, unspecified; Z79.51 Long term (current) use of inhaled steroids; Z79.891 Long term (current) use of opiate analgesic; Z87.19 Personal history of other diseases of the digestive system; I25.2 Old myocardial infarction; Z88.8 Allergy status to other drugs, medicaments and biological substances; Z79.899 Other long term (current) drug therapy; Z79.82 Long term (current) use of aspirin; Z95.1 Presence of aortocoronary bypass graft; Z95.5 Presence of coronary angioplasty implant and graft
CPT/HCPCS: 36415; 36569; 70450; 71045; 72125; 80053; 80069; 80202; 80320; 81001; 82140; 82803; 82947; 83735; 85014; 85018; 85025; 86704; 87340; 92526; 92610; 93005; 93010; 94760; 94762; 96365; 96375; 97110; 97162; 99285-25; A9270; C1751; J0612; J0696; J1644; J1815; J3010; J3370; J7050

== ENCOUNTER 2024-12-12 00:18 | Emergency (ER) | payer OTHER ==
[~2024-12-12] VITALS: Ht 177.8 cm; Wt 80.3 kg
[~2024-12-12 00:18] MED LIST changes: +Acetaminophen650 M1 PO; +BISA10S PR; +CARV6.25 PO; +CEFTRIAXONE2 G1 IV; +DOCU100 PO; +GABA100 PO; +LOSA25 PO; +METSALMENC TOP; +OMEP20ER PO; +ONDA4 PO; +PAIN RELIEF PA1 EACH TOP; +PANT40 PO; +SENN187 PO; +VANCOMYCIN IV; +[UNRECOGNIZED DRUG - OTHER] SC
[2024-12-12 03:30] VITALS: BP 139/49
[2024-12-12] MEDS ORDERED: Robaxin750 MG PO (04:08)
== END 2024-12-12 07:21 | disposition home or self-care (01) ==
LOC: ER 00:18
DX: M54.2 Cervicalgia (principal); G89.29 Other chronic pain; Z79.899 Other long term (current) drug therapy; Z88.8 Allergy status to other drugs, medicaments and biological substances; Z79.2 Long term (current) use of antibiotics; E11.9 Type 2 diabetes mellitus without complications; J44.9 Chronic obstructive pulmonary disease, unspecified; I11.0 Hypertensive heart disease with heart failure; I50.22 Chronic systolic (congestive) heart failure; F17.210 Nicotine dependence, cigarettes, uncomplicated
CPT/HCPCS: 99284; A9270

== ENCOUNTER 2024-12-14 01:10 | Emergency (ER) | payer OTHER ==
[~2024-12-14] VITALS: Ht 177.8 cm; Wt 81.7 kg
[~2024-12-14 01:10] MED LIST changes: +Robaxin750 MG PO
[2024-12-14 02:02] LABS: BASOPHILS ABSOLUTE AUTO 0.10 K/mm3 (0.00-0.23); BASOPHILS PERCENT AUTO 2 % (0-2); EOSINOPHILS ABSOLUTE AUTO 0.16 K/mm3 (0.00-0.68); EOSINOPHILS PERCENT AUTO 3 % (0-6); Hematocrit 34.4 % (37.0-53.0); Hemoglobin 10.7 g/dL (13.5-17.5); IMMATURE GRAN ABSOLUTE AUTO 0.02 K/mm3 (0.00-0.10); IMMATURE GRAN PERCENT AUTO 0 % (0-1); LYMPHOCYTES ABSOLUTE AUTO 0.66 K/mm3 (0.84-5.20); LYMPHOCYTES PERCENT AUTO 11 % (21-46); MONOCYTES ABSOLUTE AUTO 0.68 K/mm3 (0.16-1.47); MONOCYTES PERCENT AUTO 11 % (4-13); Mean Corpuscular HGB Conc 31.1 g/dL (31.5-36.5); Mean Corpuscular Volume 99 fL (80-100); NEUTROPHILS ABSOLUTE AUTO 4.41 K/mm3 (1.96-9.15); NEUTROPHILS PERCENT AUTO 73 % (41-73); NRBC ABSOLUTE 0.00 K/mm3 (0.00-0.02); NRBC Auto 0.0 /100 WBC (0.0-0.2); Platelet Count 247 K/mm3 (150-400); RDW Coefficient Variation 18.2 % (11.7-14.2); RDW Standard Deviation 66.7 fL (35.1-46.3)
[2024-12-14 02:32] LABS: Alanine Aminotransfer (ALT/SGP 12.0 U/L (12-78); Albumin, Blood 2.9 g/dL (3.4-5.0); Albumin/Globulin Ratio 0.7 (0.8-1.8); Anion Gap 10.0 mmol/L (3-11); Aspartate Aminotrans (AST/SGOT 16.0 U/L (12-37); Bilirubin, Total 0.6 mg/dL (0.1-1.0); Blood Urea Nitrogen 16.0 mg/dL (8-24); CO2, Blood 32.0 mmol/L (21-32); Calcium, Blood 8.9 mg/dL (8.5-10.1); Chloride, Blood 96.0 mmol/L (98-108); Creatinine, Blood 3.97 mg/dL (0.60-1.20); Globulin, Blood 4.3 g/dL (2.2-4.0); Glucose, Blood 86.0 mg/dL (70-99); Potassium, Blood 3.9 mmol/L (3.5-5.5); Sodium, Blood 134.0 mmol/L (136-145); Total Protein, Blood 7.2 g/dL (6.4-8.2)
[2024-12-14 03:30] VITALS: BP 174/85
== END 2024-12-14 03:45 | disposition home or self-care (01) ==
LOC: ER 01:10
PROVIDERS: Emergency Medicine
DX: R07.89 Other chest pain (principal); I13.2 Hypertensive heart and chronic kidney disease with heart failure and with stage 5 chronic kidney disease, or end stage renal disease; I50.20 Unspecified systolic (congestive) heart failure; E11.22 Type 2 diabetes mellitus with diabetic chronic kidney disease; N18.6 End stage renal disease; I25.10 Atherosclerotic heart disease of native coronary artery without angina pectoris; I25.2 Old myocardial infarction; E11.42 Type 2 diabetes mellitus with diabetic polyneuropathy; Z99.2 Dependence on renal dialysis; F17.200 Nicotine dependence, unspecified, uncomplicated; Z86.73 Personal history of transient ischemic attack (TIA), and cerebral infarction without residual deficits; Z95.1 Presence of aortocoronary bypass graft; Z88.6 Allergy status to analgesic agent; Z88.8 Allergy status to other drugs, medicaments and biological substances; Z91.048 Other nonmedicinal substance allergy status; Z79.82 Long term (current) use of aspirin; Z79.02 Long term (current) use of antithrombotics/antiplatelets; Z79.899 Other long term (current) drug therapy; Z59.89 Other problems related to housing and economic circumstances
CPT/HCPCS: 71045; 80053; 84484; 85025; 93005; 93010; 99285-25

== ENCOUNTER → 2024-12-15 | Outpatient (CLI) | payer OTHER ==
[2024-12-15 13:01] LABS: Vancomycin, Trough 14.8 ug/mL (5.0-10.0)
== END | disposition home or self-care (01) ==
LOC: LAB DAV 11:30
PROVIDERS: Internal Medicine Nephrology
DX: N18.6 End stage renal disease (principal); A49.9 Bacterial infection, unspecified; Z99.2 Dependence on renal dialysis
CPT/HCPCS: 80202

== ENCOUNTER 2024-12-18 12:08 | Emergency (ER) | payer OTHER ==
[~2024-12-18] VITALS: Ht 177.8 cm; Wt 79.4 kg
[2024-12-18 12:18] VITALS: BP 155/97
[2024-12-18 12:56] LABS: BASOPHILS ABSOLUTE AUTO 0.08 K/mm3 (0.00-0.23); BASOPHILS PERCENT AUTO 1 % (0-2); EOSINOPHILS ABSOLUTE AUTO 0.20 K/mm3 (0.00-0.68); EOSINOPHILS PERCENT AUTO 3 % (0-6); Hematocrit 35.3 % (37.0-53.0); Hemoglobin 11.1 g/dL (13.5-17.5); IMMATURE GRAN ABSOLUTE AUTO 0.03 K/mm3 (0.00-0.10); IMMATURE GRAN PERCENT AUTO 0 % (0-1); LYMPHOCYTES ABSOLUTE AUTO 0.73 K/mm3 (0.84-5.20); LYMPHOCYTES PERCENT AUTO 10 % (21-46); MONOCYTES ABSOLUTE AUTO 1.02 K/mm3 (0.16-1.47); MONOCYTES PERCENT AUTO 14 % (4-13); Mean Corpuscular HGB Conc 31.4 g/dL (31.5-36.5); Mean Corpuscular Volume 99 fL (80-100); NEUTROPHILS ABSOLUTE AUTO 5.43 K/mm3 (1.96-9.15); NEUTROPHILS PERCENT AUTO 73 % (41-73); NRBC ABSOLUTE 0.00 K/mm3 (0.00-0.02); NRBC Auto 0.0 /100 WBC (0.0-0.2); Platelet Count 211 K/mm3 (150-400); RDW Coefficient Variation 17.5 % (11.7-14.2); RDW Standard Deviation 64.2 fL (35.1-46.3)
[2024-12-18 13:17] LABS: Magnesium, Blood 2.3 mg/dL (1.6-2.4)
[2024-12-18 13:18] LABS: Alanine Aminotransfer (ALT/SGP 9.0 U/L (12-78); Albumin, Blood 3.1 g/dL (3.4-5.0); Albumin/Globulin Ratio 0.8 (0.8-1.8); Anion Gap 8.0 mmol/L (3-11); Aspartate Aminotrans (AST/SGOT 12.0 U/L (12-37); Bilirubin, Total 0.7 mg/dL (0.1-1.0); Blood Urea Nitrogen 16.0 mg/dL (8-24); CO2, Blood 34.0 mmol/L (21-32); Calcium, Blood 9.6 mg/dL (8.5-10.1); Chloride, Blood 95.0 mmol/L (98-108); Creatinine, Blood 4.13 mg/dL (0.60-1.20); Globulin, Blood 4.1 g/dL (2.2-4.0); Glucose, Blood 122.0 mg/dL (70-99); Potassium, Blood 3.6 mmol/L (3.5-5.5); Sodium, Blood 133.0 mmol/L (136-145); Total Protein, Blood 7.2 g/dL (6.4-8.2)
[2024-12-18] MEDS ORDERED: Polyethylene Glycol 3350 17 gm PO ONE (13:30)
[2024-12-18] MEDS ORDERED: HYDROcodone 5-APAP 325 TAB PO ONE (14:25)
== END 2024-12-18 16:05 | disposition home or self-care (01) ==
LOC: ER 12:08
PROVIDERS: Emergency Medicine
DX: K56.41 Fecal impaction (principal); I13.2 Hypertensive heart and chronic kidney disease with heart failure and with stage 5 chronic kidney disease, or end stage renal disease; Z99.2 Dependence on renal dialysis; N18.6 End stage renal disease; I50.20 Unspecified systolic (congestive) heart failure; J44.9 Chronic obstructive pulmonary disease, unspecified; Z88.8 Allergy status to other drugs, medicaments and biological substances; Z79.899 Other long term (current) drug therapy; Z79.82 Long term (current) use of aspirin; Z79.2 Long term (current) use of antibiotics; Z79.890 Hormone replacement therapy; Z79.1 Long term (current) use of non-steroidal anti-inflammatories (NSAID); F17.200 Nicotine dependence, unspecified, uncomplicated
CPT/HCPCS: 74176; 80053; 83735; 85025; 99284-25; A9270

== ENCOUNTER 2025-01-01 21:32 | Emergency (ER) | payer OTHER ==
[~2025-01-01] VITALS: Ht 177.8 cm; Wt 64.9 kg
[2025-01-01] MEDS ORDERED: FentaNYL Citrate 50 MCG/ML 2 ML Injection IV PRN (21:55)
[2025-01-01 22:12] LABS: Alanine Aminotransfer (ALT/SGP 12.0 U/L (12-78); Albumin, Blood 3.2 g/dL (3.4-5.0); Albumin/Globulin Ratio 0.9 (0.8-1.8); Anion Gap 10.0 mmol/L (3-11); Aspartate Aminotrans (AST/SGOT 17.0 U/L (12-37); Bilirubin, Total 0.8 mg/dL (0.1-1.0); Blood Urea Nitrogen 43.0 mg/dL (8-24); CO2, Blood 28.0 mmol/L (21-32); Calcium, Blood 9.7 mg/dL (8.5-10.1); Chloride, Blood 96.0 mmol/L (98-108); Creatinine, Blood 6.3 mg/dL (0.60-1.20); Globulin, Blood 3.7 g/dL (2.2-4.0); Glucose, Blood 117.0 mg/dL (70-99); Potassium, Blood 5.0 mmol/L (3.5-5.5); Sodium, Blood 129.0 mmol/L (136-145); Total Protein, Blood 6.9 g/dL (6.4-8.2)
[2025-01-01 22:14] LABS: BASOPHILS ABSOLUTE AUTO 0.09 K/mm3 (0.00-0.23); BASOPHILS PERCENT AUTO 1 % (0-2); EOSINOPHILS ABSOLUTE AUTO 0.05 K/mm3 (0.00-0.68); EOSINOPHILS PERCENT AUTO 1 % (0-6); Hematocrit 36.4 % (37.0-53.0); Hemoglobin 11.4 g/dL (13.5-17.5); IMMATURE GRAN ABSOLUTE AUTO 0.02 K/mm3 (0.00-0.10); IMMATURE GRAN PERCENT AUTO 0 % (0-1); LYMPHOCYTES ABSOLUTE AUTO 0.87 K/mm3 (0.84-5.20); LYMPHOCYTES PERCENT AUTO 12 % (21-46); MONOCYTES ABSOLUTE AUTO 0.64 K/mm3 (0.16-1.47); MONOCYTES PERCENT AUTO 9 % (4-13); Mean Corpuscular HGB Conc 31.3 g/dL (31.5-36.5); Mean Corpuscular Volume 98 fL (80-100); NEUTROPHILS ABSOLUTE AUTO 5.36 K/mm3 (1.96-9.15); NEUTROPHILS PERCENT AUTO 76 % (41-73); NRBC ABSOLUTE 0.00 K/mm3 (0.00-0.02); NRBC Auto 0.0 /100 WBC (0.0-0.2); Platelet Count 199 K/mm3 (150-400); RDW Coefficient Variation 16.8 % (11.7-14.2); RDW Standard Deviation 60.9 fL (35.1-46.3)
[2025-01-01 23:45] VITALS: BP 146/79
[2025-01-01] MEDS ORDERED: HYDR1TAB94 PO (23:47)
== END 2025-01-02 00:26 | disposition home or self-care (01) ==
LOC: ER 21:32
PROVIDERS: Emergency Medicine
DX: M54.9 Dorsalgia, unspecified (principal); G89.29 Other chronic pain; Z59.89 Other problems related to housing and economic circumstances; I13.2 Hypertensive heart and chronic kidney disease with heart failure and with stage 5 chronic kidney disease, or end stage renal disease; E11.22 Type 2 diabetes mellitus with diabetic chronic kidney disease; E11.40 Type 2 diabetes mellitus with diabetic neuropathy, unspecified; I50.20 Unspecified systolic (congestive) heart failure; N18.6 End stage renal disease; J44.9 Chronic obstructive pulmonary disease, unspecified; F17.210 Nicotine dependence, cigarettes, uncomplicated; Z88.8 Allergy status to other drugs, medicaments and biological substances; Z79.899 Other long term (current) drug therapy; Z79.84 Long term (current) use of oral hypoglycemic drugs
CPT/HCPCS: 71045; 80053; 83880; 84484; 85025; 93005; 93010; 96374; 99284-25; J3010

== ENCOUNTER → 2025-01-03 | Outpatient (CLI) | payer OTHER ==
[2025-01-03 13:44] LABS: BASOPHILS ABSOLUTE AUTO 0.07 K/mm3 (0.00-0.23); BASOPHILS PERCENT AUTO 1 % (0-2); EOSINOPHILS ABSOLUTE AUTO 0.03 K/mm3 (0.00-0.68); EOSINOPHILS PERCENT AUTO 0 % (0-6); Hematocrit 37.5 % (37.0-53.0); Hemoglobin 11.9 g/dL (13.5-17.5); IMMATURE GRAN ABSOLUTE AUTO 0.04 K/mm3 (0.00-0.10); IMMATURE GRAN PERCENT AUTO 1 % (0-1); LYMPHOCYTES ABSOLUTE AUTO 0.81 K/mm3 (0.84-5.20); LYMPHOCYTES PERCENT AUTO 9 % (21-46); MONOCYTES ABSOLUTE AUTO 0.89 K/mm3 (0.16-1.47); MONOCYTES PERCENT AUTO 10 % (4-13); Mean Corpuscular HGB Conc 31.7 g/dL (31.5-36.5); Mean Corpuscular Volume 100 fL (80-100); NEUTROPHILS ABSOLUTE AUTO 6.83 K/mm3 (1.96-9.15); NEUTROPHILS PERCENT AUTO 79 % (41-73); NRBC ABSOLUTE 0.00 K/mm3 (0.00-0.02); NRBC Auto 0.0 /100 WBC (0.0-0.2); Platelet Count 212 K/mm3 (150-400); RDW Coefficient Variation 16.8 % (11.7-14.2); RDW Standard Deviation 62.0 fL (35.1-46.3)
[2025-01-03 14:22] LABS: C-REACTIVE PROTEIN, EXT RANGE 0.531 mg/dL (0.000-0.300)
[2025-01-03 14:23] LABS: Vancomycin, Random 10.8 ug/mL
== END ==
LOC: LAB 13:12 → LAB SHORT 13:12
PROVIDERS: Student in an Organized Health Care Education/Training Program
DX: M46.42 Discitis, unspecified, cervical region (principal)
CPT/HCPCS: 80202; 85025; 85651; 86140

== ENCOUNTER 2025-01-26 06:06 | Observation (INO) | payer OTHER ==
[~2025-01-26] VITALS: Ht 177.8 cm; Wt 100.0 kg
[2025-01-26] VITALS (13 sets, daily range): BP systolic 139–162; BP diastolic 66–86
[2025-01-26 07:00] LABS: BASOPHILS ABSOLUTE AUTO 0.05 K/mm3 (0.00-0.23); BASOPHILS PERCENT AUTO 1 % (0-2); EOSINOPHILS ABSOLUTE AUTO 0.12 K/mm3 (0.00-0.68); EOSINOPHILS PERCENT AUTO 2 % (0-6); Hematocrit 34.6 % (37.0-53.0); Hemoglobin 11.1 g/dL (13.5-17.5); IMMATURE GRAN ABSOLUTE AUTO 0.01 K/mm3 (0.00-0.10); IMMATURE GRAN PERCENT AUTO 0 % (0-1); LYMPHOCYTES ABSOLUTE AUTO 0.74 K/mm3 (0.84-5.20); LYMPHOCYTES PERCENT AUTO 13 % (21-46); MONOCYTES ABSOLUTE AUTO 0.72 K/mm3 (0.16-1.47); MONOCYTES PERCENT AUTO 13 % (4-13); Mean Corpuscular HGB Conc 32.1 g/dL (31.5-36.5); Mean Corpuscular Volume 98 fL (80-100); NEUTROPHILS ABSOLUTE AUTO 4.10 K/mm3 (1.96-9.15); NEUTROPHILS PERCENT AUTO 71 % (41-73); NRBC ABSOLUTE 0.00 K/mm3 (0.00-0.02); NRBC Auto 0.0 /100 WBC (0.0-0.2); Platelet Count 171 K/mm3 (150-400); RDW Coefficient Variation 16.0 % (11.7-14.2); RDW Standard Deviation 56.3 fL (35.1-46.3)
[2025-01-26 07:05] LABS: Magnesium, Blood 2.3 mg/dL (1.6-2.4)
[2025-01-26] MEDS ORDERED: HYDROcodone 5-APAP 325 TAB PO ONE (07:05)
[2025-01-26 07:06] LABS: Alanine Aminotransfer (ALT/SGP 28.0 U/L (12-78); Albumin, Blood 3.0 g/dL (3.4-5.0); Albumin/Globulin Ratio 0.9 (0.8-1.8); Anion Gap 16.0 mmol/L (3-11); Aspartate Aminotrans (AST/SGOT 17.0 U/L (12-37); Bilirubin, Total 1.2 mg/dL (0.1-1.0); Blood Urea Nitrogen 73.0 mg/dL (8-24); CO2, Blood 25.0 mmol/L (21-32); Calcium, Blood 9.4 mg/dL (8.5-10.1); Chloride, Blood 97.0 mmol/L (98-108); Creatinine, Blood 7.8 mg/dL (0.60-1.20); Globulin, Blood 3.4 g/dL (2.2-4.0); Glucose, Blood 114.0 mg/dL (70-99); Potassium, Blood 5.6 mmol/L (3.5-5.5); Sodium, Blood 132.0 mmol/L (136-145); Total Protein, Blood 6.4 g/dL (6.4-8.2)
--- NOTE | 2025-01-26 14:44 | NUR ---
STRESS TEST DONE ON FLOOR, PATIENT NAUSEATED, GIVEN IV CAFFIENE CITRATE ON UNIVERSAL TIME AT 14:05, COMPLETED AT 14:09, TOLERATED WELL BUT ALSO WAS PUTTING FINGERS IN MOUTH TO THROW UP, AND WHEN SUBSIDED, STATED IMPROVED NAUSEA, "WHY IS THERE NO COFFEE?!" PATIENT ALSO STATED, AND OTHERWISE NO ADDITIONAL ISSUES, NAUSEA RESOLVED ON COMPLETION OF STRESS TEST.
[2025-01-26] MEDS ORDERED: HYDROcodone 5-APAP 325 TAB PO PRN (16:05)
[2025-01-26] MEDS ORDERED: Methyl Salicylate/Menth/Camph 57 GM TUBE TOP PRN (16:20)
[2025-01-26] MEDS ORDERED: Insulin Human Lispro 100 Units/ML 3ML Syringe SC SCH (16:30)
[2025-01-26] MEDS ORDERED: Calcium Acetate 667 MG Gel Cap PO SCH (17:30)
--- NOTE | 2025-01-26 18:58 | NUR ---
End of shift summary: Patient is alert and oriented x3; can be aggressive and yell out instead of utilizing call light, redirects easily. Patient with dialysis this afternoon and returned to room at 1815. Patient with chronic pain and had Mimbres at 1615. Patient denies CP, SOB, N/V at this time. Call light within reach, bed in lowest position. Will continue to monitor until next shift nurse arrives and report is given.
[2025-01-26] MEDS ORDERED: Heparin Sodium,Porcine 5,000 UNIT/0.5 ML SDV SC SCH (21:00)
[2025-01-27] VITALS (16 sets, daily range): BP systolic 122–154; BP diastolic 58–80
[2025-01-27 05:50] LABS: Hematocrit 34.5 % (37.0-53.0); Hemoglobin 11.0 g/dL (13.5-17.5); Mean Corpuscular HGB Conc 31.9 g/dL (31.5-36.5); Mean Corpuscular Volume 99 fL (80-100); NRBC ABSOLUTE 0.00 K/mm3 (0.00-0.02); NRBC Auto 0.0 /100 WBC (0.0-0.2); Platelet Count 161 K/mm3 (150-400); RDW Coefficient Variation 16.1 % (11.7-14.2); RDW Standard Deviation 58.0 fL (35.1-46.3)
[2025-01-27 06:08] LABS: Anion Gap 15.0 mmol/L (3-11); Blood Urea Nitrogen 54.0 mg/dL (8-24); CO2, Blood 26.0 mmol/L (21-32); Calcium, Blood 8.9 mg/dL (8.5-10.1); Chloride, Blood 96.0 mmol/L (98-108); Creatinine, Blood 6.55 mg/dL (0.60-1.20); Glucose, Blood 123.0 mg/dL (70-99); Potassium, Blood 5.0 mmol/L (3.5-5.5); Sodium, Blood 132.0 mmol/L (136-145)
--- NOTE | 2025-01-27 06:48 | NUR ---
SHIFT SUMMARY: Pt admitted for chest pain and is a full code. Is alert and able to make needs known. ADLs have been 1-2 depending on activity but did not get out of bed. Pain has been managed with PRN medications. IV to left forearm is patent with dressing that is CDI. dwight noted sinus in the 80s. Had one run of VTAC for 13 beats no SX noted when assessed. Reported to MD. no new orders.
[2025-01-27] MEDS ORDERED: Isosorbide Mononitrate 30 MG TABCR PO SCH (09:00)
[2025-01-27] MEDS ORDERED: Lidocaine 4% 1 Patch TOP SCH (09:00)
[2025-01-27] MEDS ORDERED: FentaNYL Citrate 50 MCG/ML 2 ML Injection IV STA (14:55)
[2025-01-27] MEDS ORDERED: HYDROcodone 5-APAP 325 TAB PO PRN (15:00)
--- NOTE | 2025-01-27 16:55 | NUR ---
SHIFT SUMMARY CLIENT AOX4. HAS REFUSED MOST MEDICATION, WITH THE EXCEPTION OF PAIN MEDS. WENT TO DIALYSIS IN MORNING. 2 LITERS OF FLUID TAKEN OFF. THOUGHT PROCESS SEEMS TO BE HYPERFOCUED ON RECEIVING PAIN MEDS AND SLEEPING. RECEIVED NORCO X2 AND STAT DOSE OF FENTANYL IV X1. REMAINS ON TELE - SINUS RYTHM @ 74. HAD BM X1. EXHIBITS PERIODS OF AGGISTATION AND LOW FRUSTRATION THREASHOLD. CALLS OUT IF CALL LIGHT NOT ANSWERED IMMEDIATELY. WAS REDIRECTABLE. BED IS IN LOW POSITION AND CALL LIGHT IS WITHIN REACH
--- NOTE | 2025-01-28 00:27 | NUR ---
SUMMARY: PT AOX4, ABLE TO TURN SELF IN BED AND SIT AT EDGE OF BED INDEPENDENTLY. PT PLAN TO DISCHARGE THIS EVENING BUT HE HAD NO RIDE, SPOKE WITH SYSTEMS DEVELOPMENT CONSULTANT AND PT PLAN WILL BE TO DC TOMORROW WHEN RIDE AVAILABLE. REPORT GIVEN TO PAOLO DELA CRUZ, THIS RN SENT HOME DUE TO LOW CENSUS.
[2025-01-28 03:27] VITALS: BP 140/73
[2025-01-28 05:59] LABS: Hematocrit 39.0 % (37.0-53.0); Hemoglobin 12.2 g/dL (13.5-17.5)
[2025-01-28 06:25] LABS: Albumin, Blood 2.8 g/dL (3.4-5.0); Anion Gap 12 mmol/L (3-11); Blood Urea Nitrogen 43 mg/dL (8-24); CO2, Blood 30 mmol/L (21-32); Calcium, Blood 9.2 mg/dL (8.5-10.1); Chloride, Blood 94 mmol/L (98-108); Creatinine, Blood 5.63 mg/dL (0.60-1.20); Glucose, Blood 124 mg/dL (70-99); Magnesium, Blood 2.3 mg/dL (1.6-2.4); Phosphorus, Blood 6.3 mg/dL (2.5-4.9); Potassium, Blood 4.7 mmol/L (3.5-5.5); Sodium, Blood 131 mmol/L (136-145)
[2025-01-28 07:03] VITALS: BP 147/78
--- NOTE | 2025-01-28 13:34 | NUR ---
DISCHARGE SUMMARY CLIENT AOX4. REMAIN NONCOMPLIANT WITH MEDICAL MEDICATIONS. ONLY ACCEPTED PAIN MEDS, HEPARING, NICADERM PATCH, AND LODICACAINE PATCH. DISCHARGE ORDERS ON FILE AT ASSUMPTION OF SHIFT. IV ACCESS AND TELEMETRY DISCONTINUED. DISCHARGE PACKET DISCUSSED WITH CLIENT WITH OPPERTUNITY GIVEN TO ASK QUESTION. CLIENT VOICED NO QUESTION CONCERNING DISCHARGE OR AFTER CARE. ORIGINAL PRESCRIPTION FOR NORCO GIVEN TO CLIENT. PHOTOCOPY PLACED IN CHART. CLIENT LEFT THE UNIT VIA WHEELCHAIR WITH NURSING STAFF.
== END 2025-01-28 11:41 | disposition home or self-care (01) ==
LOC: ER 06:06 → MEDS 06:07 → ENPENDDIS 01-28 00:01 → MEDS 01-28 11:41
PROVIDERS: Internal Medicine Nephrology; Student in an Organized Health Care Education/Training Program; ADMIT Internal Medicine
DX: R07.89 Other chest pain (principal); R94.31 Abnormal electrocardiogram [ECG] [EKG]; E87.1 Hypo-osmolality and hyponatremia; E87.5 Hyperkalemia; I13.0 Hypertensive heart and chronic kidney disease with heart failure and stage 1 through stage 4 chronic kidney disease, or unspecified chronic kidney disease; E11.22 Type 2 diabetes mellitus with diabetic chronic kidney disease; I50.22 Chronic systolic (congestive) heart failure; N18.6 End stage renal disease; D63.8 Anemia in other chronic diseases classified elsewhere; I25.10 Atherosclerotic heart disease of native coronary artery without angina pectoris; I25.2 Old myocardial infarction; F20.0 Paranoid schizophrenia; E78.5 Hyperlipidemia, unspecified; J44.9 Chronic obstructive pulmonary disease, unspecified; E11.42 Type 2 diabetes mellitus with diabetic polyneuropathy; F17.210 Nicotine dependence, cigarettes, uncomplicated; Z99.2 Dependence on renal dialysis; Z95.1 Presence of aortocoronary bypass graft; Z88.6 Allergy status to analgesic agent; Z88.8 Allergy status to other drugs, medicaments and biological substances; Z79.82 Long term (current) use of aspirin; Z79.02 Long term (current) use of antithrombotics/antiplatelets; Z79.899 Other long term (current) drug therapy; Z86.73 Personal history of transient ischemic attack (TIA), and cerebral infarction without residual deficits
CPT/HCPCS: 36415; 71045; 78451; 80048; 80053; 80069; 82947; 83735; 84484; 85014; 85018; 85025; 85027; 93005; 93010; 93017; 93306; 96372; 96374; 96375; 99285-25; A9270; A9500; G0257; G0378; J0706; J1644; J2785; J3010

== ENCOUNTER 2025-01-31 16:03 | Observation (INO) | payer OTHER ==
[~2025-01-31] VITALS: Ht 177.8 cm; Wt 76.1 kg
[2025-01-31] MEDS ORDERED: HYDROcodone 10-APAP 325 TAB PO ONE (17:10)
[2025-01-31 17:20] LABS: BASOPHILS ABSOLUTE AUTO 0.07 K/mm3 (0.00-0.23); BASOPHILS PERCENT AUTO 1 % (0-2); EOSINOPHILS ABSOLUTE AUTO 0.09 K/mm3 (0.00-0.68); EOSINOPHILS PERCENT AUTO 1 % (0-6); Hematocrit 37.8 % (37.0-53.0); Hemoglobin 12.1 g/dL (13.5-17.5); IMMATURE GRAN ABSOLUTE AUTO 0.04 K/mm3 (0.00-0.10); IMMATURE GRAN PERCENT AUTO 1 % (0-1); LYMPHOCYTES ABSOLUTE AUTO 0.65 K/mm3 (0.84-5.20); LYMPHOCYTES PERCENT AUTO 9 % (21-46); MONOCYTES ABSOLUTE AUTO 1.01 K/mm3 (0.16-1.47); MONOCYTES PERCENT AUTO 14 % (4-13); Mean Corpuscular HGB Conc 32.0 g/dL (31.5-36.5); Mean Corpuscular Volume 99 fL (80-100); NEUTROPHILS ABSOLUTE AUTO 5.35 K/mm3 (1.96-9.15); NEUTROPHILS PERCENT AUTO 74 % (41-73); NRBC ABSOLUTE 0.00 K/mm3 (0.00-0.02); NRBC Auto 0.0 /100 WBC (0.0-0.2); Platelet Count 212 K/mm3 (150-400); RDW Coefficient Variation 15.9 % (11.7-14.2); RDW Standard Deviation 57.9 fL (35.1-46.3)
[2025-01-31 17:51] LABS: pH Blood Venous 7.45 (7.34-7.37)
[2025-01-31 18:12] LABS: Alanine Aminotransfer (ALT/SGP 20.0 U/L (12-78); Albumin, Blood 2.7 g/dL (3.4-5.0); Albumin/Globulin Ratio 0.7 (0.8-1.8); Anion Gap 14.0 mmol/L (3-11); Aspartate Aminotrans (AST/SGOT 29.0 U/L (12-37); Bilirubin, Total 1.2 mg/dL (0.1-1.0); Blood Urea Nitrogen 69.0 mg/dL (8-24); CO2, Blood 26.0 mmol/L (21-32); Calcium, Blood 9.4 mg/dL (8.5-10.1); Chloride, Blood 97.0 mmol/L (98-108); Creatinine, Blood 7.8 mg/dL (0.60-1.20); Globulin, Blood 3.8 g/dL (2.2-4.0); Glucose, Blood 97.0 mg/dL (70-99); Potassium, Blood 6.4 mmol/L (3.5-5.5); Sodium, Blood 131.0 mmol/L (136-145); Total Protein, Blood 6.5 g/dL (6.4-8.2)
[2025-01-31] MEDS ORDERED: Calcium Gluconate 10% 100 MG/ML INJ IV ONE (18:35)
[2025-01-31] MEDS ORDERED: Albuterol 2.5 MG/3 ML VIAL INH SCH (18:35)
[2025-01-31] MEDS ORDERED: Insulin Regular 100 Unit/ML 1ML Dose IV ONE (18:35)
[2025-01-31] MEDS ORDERED: Ondansetron HCl 2 MG / ML 2ML Vial IV PRN (18:55)
[2025-01-31] MEDS ORDERED: HYDROcodone 5-APAP 325 TAB PO PRN (19:05)
[2025-01-31] MEDS ORDERED: CALCIUM GLUC IN NACL, ISO-OSM 50 ML IV ONE (19:10)
[2025-01-31] MEDS ORDERED: Albuterol 2.5 MG/3 ML VIAL INH PRN (19:10)
[2025-01-31] MEDS ORDERED: Darbepoetin (Pharmacy Consult) SC SCH (19:30)
[2025-01-31 20:51] LABS: Magnesium, Blood 2.3 mg/dL (1.6-2.4)
[2025-01-31] MEDS ORDERED: Heparin Sodium,Porcine 5,000 UNIT/0.5 ML SDV SC SCH (21:00)
[2025-01-31 21:19] LABS: Anion Gap 13.0 mmol/L (3-11); Blood Urea Nitrogen 70.0 mg/dL (8-24); CO2, Blood 27.0 mmol/L (21-32); Calcium, Blood 9.7 mg/dL (8.5-10.1); Chloride, Blood 97.0 mmol/L (98-108); Creatinine, Blood 8.12 mg/dL (0.60-1.20); Glucose, Blood 115.0 mg/dL (70-99); Potassium, Blood 5.3 mmol/L (3.5-5.5); Sodium, Blood 132.0 mmol/L (136-145)
[2025-01-31 21:35] VITALS: BP 168/86
--- NOTE | 2025-01-31 21:45 | NUR ---
NOTIFIED OF CREATININE
[2025-02-01] VITALS (13 sets, daily range): BP systolic 112–160; BP diastolic 57–80
--- NOTE | 2025-02-01 04:42 | NUR ---
PT ADMITTED FROM ED WITH NEED FOR HD. A&O X4, VS WNL, LABS ELEVATED. INCONTINENT OF BOWEL, ANURIC, TELE NSR. USES CALL SYSTEM APPROPRIATELY. PT PULLED OUT X1 OF 2 IV'S. PT HAS A FUNCTIONING AV[facility] IN [facility]. PT REQUESTED O2 EVEN WITH SATS 95%, PLACED FOR COMFORT. PLAN UNSURE AT THIS TIME D/T SISTER CAN'T TAKE CARE OF HIM ANYMORE, AND HE IS UNABLE TO CARE FOR SELF.
[2025-02-01 05:34] LABS: Hematocrit 37.4 % (37.0-53.0); Hemoglobin 12.1 g/dL (13.5-17.5); Mean Corpuscular HGB Conc 32.4 g/dL (31.5-36.5); Mean Corpuscular Volume 99 fL (80-100); NRBC ABSOLUTE 0.00 K/mm3 (0.00-0.02); NRBC Auto 0.0 /100 WBC (0.0-0.2); Platelet Count 223 K/mm3 (150-400); RDW Coefficient Variation 15.9 % (11.7-14.2); RDW Standard Deviation 58.5 fL (35.1-46.3)
[2025-02-01 06:14] LABS: Magnesium, Blood 2.3 mg/dL (1.6-2.4)
[2025-02-01 06:21] LABS: Albumin, Blood 2.7 g/dL (3.4-5.0); Anion Gap 15 mmol/L (3-11); Blood Urea Nitrogen 72 mg/dL (8-24); CO2, Blood 25 mmol/L (21-32); Calcium, Blood 9.1 mg/dL (8.5-10.1); Chloride, Blood 98 mmol/L (98-108); Creatinine, Blood 7.93 mg/dL (0.60-1.20); Glucose, Blood 90 mg/dL (70-99); Phosphorus, Blood 8.0 mg/dL (2.5-4.9); Potassium, Blood 5.7 mmol/L (3.5-5.5); Sodium, Blood 132 mmol/L (136-145)
[2025-02-01] MEDS ORDERED: Isosorbide Mononitrate 30 MG TABCR PO SCH (09:00)
[2025-02-01] MEDS ORDERED: Lidocaine 4% 1 Patch TOP SCH (09:00)
--- NOTE | 2025-02-01 12:16 | NUR ---
RN AGREES WITH BAR HELPER INTERPRETATION OF SINUS RHYTHM
[2025-02-01] MEDS ORDERED: ALBU2.5V5 (13:23)
[2025-02-01] MEDS ORDERED: PANT40 PO (13:25)
--- NOTE | 2025-02-01 15:48 | NUR ---
SHIFT/DISCHARGE SUMMARY: PATIENT A+O X3 THROUGHOUT THIS SHIFT. PATIENT WAS NOTED TO BE AGGITATED AT TIMES WITH STAFF WHEN DEMANDING THINGS BE DONE "NOW". THIS NURSE VERBALIZED UNDERTSTANDING AND REINFORCED. PATIENT WAS TRANSPORTED TO DIALYSIS THIS AM AND WAS TRANSFERED BACK UP TO MEDICAL FLOOR ONCE FINISHED. LUNGS DIMINISHED IN BASES, TELE WAS SINUS 70'S (REVIEWED BY DESHAUN SCHAEFFER RN). PATIENT VERBALIZED "ITCHY" SKIN, APPLIED LOTION FOR COMFORT. PATIENT WAS DISCHARGED HOME @1515. DISCHARGE PAPERWORK AND EDUCATION DISCUSSED WITH PATIENT, PATIENT VERBALIZED UNDERSTANDING. BELONGINGS PACKED AND GIVEN BACK TO PATIENT.
== END 2025-02-01 15:15 | disposition home or self-care (01) ==
LOC: ER 16:03 → MEDS 16:04
PROVIDERS: Emergency Medicine; Nurse Practitioner Acute Care; ADMIT Student in an Organized Health Care Education/Training Program
DX: E87.5 Hyperkalemia (principal); N18.6 End stage renal disease; I13.2 Hypertensive heart and chronic kidney disease with heart failure and with stage 5 chronic kidney disease, or end stage renal disease; E11.22 Type 2 diabetes mellitus with diabetic chronic kidney disease; E87.1 Hypo-osmolality and hyponatremia; D63.1 Anemia in chronic kidney disease; J44.9 Chronic obstructive pulmonary disease, unspecified; E11.42 Type 2 diabetes mellitus with diabetic polyneuropathy; I50.22 Chronic systolic (congestive) heart failure; I25.10 Atherosclerotic heart disease of native coronary artery without angina pectoris; E87.70 Fluid overload, unspecified; F20.0 Paranoid schizophrenia; G89.4 Chronic pain syndrome; N25.81 Secondary hyperparathyroidism of renal origin; Z95.1 Presence of aortocoronary bypass graft; Z87.11 Personal history of peptic ulcer disease; Z79.01 Long term (current) use of anticoagulants; Z79.82 Long term (current) use of aspirin; Z79.899 Other long term (current) drug therapy; Z88.6 Allergy status to analgesic agent; Z88.8 Allergy status to other drugs, medicaments and biological substances
CPT/HCPCS: 36415; 71045; 80048; 80053; 80069; 82803; 82947; 83735; 84484; 85025; 85027; 93005; 93010; 96372; 96374; 96375; 99285-25; A9270; G0257; G0378; J0612; J1644; J1815

== ENCOUNTER 2025-02-21 08:02 | Emergency (ER) | payer OTHER ==
[~2025-02-21] VITALS: Ht 177.8 cm; Wt 69.4 kg
[~2025-02-21 08:02] MED LIST changes: +ALBU2.5V5
[2025-02-21 08:09] VITALS: BP 160/84
[2025-02-21] MEDS ORDERED: HYDROcodone 5-APAP 325 TAB PO ONE (09:05)
== END 2025-02-21 10:26 | disposition home or self-care (01) ==
LOC: ER 08:02
DX: M25.511 Pain in right shoulder (principal); J44.9 Chronic obstructive pulmonary disease, unspecified; E11.9 Type 2 diabetes mellitus without complications; I12.0 Hypertensive chronic kidney disease with stage 5 chronic kidney disease or end stage renal disease; N18.6 End stage renal disease; F17.210 Nicotine dependence, cigarettes, uncomplicated; Z86.73 Personal history of transient ischemic attack (TIA), and cerebral infarction without residual deficits; Z79.899 Other long term (current) drug therapy; Z79.82 Long term (current) use of aspirin; Z88.6 Allergy status to analgesic agent; Z88.8 Allergy status to other drugs, medicaments and biological substances
CPT/HCPCS: 73030; 99284-25; A9270

== ENCOUNTER 2025-03-08 10:06 | Inpatient (IN) | payer OTHER ==
[2025-03-08] VITALS (15 sets, daily range): BP systolic 100–134; BP diastolic 45–71
[~2025-03-08] VITALS: Ht 177.8 cm; Wt 76.0 kg
[~2025-03-08 10:06] MED LIST changes: -ALBU2.5V5; +ALBU2.5V5 NEB; -GABA100 PO
[2025-03-08 10:44] LABS: BASOPHILS ABSOLUTE AUTO 0.03 K/mm3 (0.00-0.23); BASOPHILS PERCENT AUTO 0 % (0-2); EOSINOPHILS ABSOLUTE AUTO 0.08 K/mm3 (0.00-0.68); EOSINOPHILS PERCENT AUTO 1 % (0-6); Hematocrit 35.8 % (37.0-53.0); Hemoglobin 11.7 g/dL (13.5-17.5); IMMATURE GRAN ABSOLUTE AUTO 0.06 K/mm3 (0.00-0.10); IMMATURE GRAN PERCENT AUTO 1 % (0-1); LYMPHOCYTES ABSOLUTE AUTO 0.36 K/mm3 (0.84-5.20); LYMPHOCYTES PERCENT AUTO 4 % (21-46); MONOCYTES ABSOLUTE AUTO 0.77 K/mm3 (0.16-1.47); MONOCYTES PERCENT AUTO 8 % (4-13); Mean Corpuscular HGB Conc 32.7 g/dL (31.5-36.5); Mean Corpuscular Volume 96 fL (80-100); NEUTROPHILS ABSOLUTE AUTO 8.27 K/mm3 (1.96-9.15); NEUTROPHILS PERCENT AUTO 87 % (41-73); NRBC ABSOLUTE 0.00 K/mm3 (0.00-0.02); NRBC Auto 0.0 /100 WBC (0.0-0.2); Platelet Count 184 K/mm3 (150-400); RDW Coefficient Variation 17.2 % (11.7-14.2); RDW Standard Deviation 60.0 fL (35.1-46.3)
[2025-03-08 11:27] LABS: Alanine Aminotransfer (ALT/SGP 29.0 U/L (12-78); Albumin, Blood 2.7 g/dL (3.4-5.0); Albumin/Globulin Ratio 0.7 (0.8-1.8); Anion Gap 20.0 mmol/L (3-11); Aspartate Aminotrans (AST/SGOT 21.0 U/L (12-37); Bilirubin, Total 0.9 mg/dL (0.1-1.0); Blood Urea Nitrogen 105.0 mg/dL (8-24); CO2, Blood 23.0 mmol/L (21-32); Calcium, Blood 9.1 mg/dL (8.5-10.1); Chloride, Blood 96.0 mmol/L (98-108); Creatinine, Blood 8.26 mg/dL (0.60-1.20); Globulin, Blood 3.9 g/dL (2.2-4.0); Glucose, Blood 94.0 mg/dL (70-99); Potassium, Blood 6.3 mmol/L (3.5-5.5); Sodium, Blood 133.0 mmol/L (136-145); Total Protein, Blood 6.6 g/dL (6.4-8.2)
[2025-03-08] MEDS ORDERED: FLU VACC TS2025-26(6MOS UP)/PF 45 MCG/0.5 ML SYRINGE IM ONE (13:10)
[2025-03-08] MEDS ORDERED: Heparin Sodium,Porcine 5,000 UNIT/0.5 ML SDV SC SCH (14:00)
[2025-03-08] MEDS ORDERED: Sodium Polystyrene Sulfonate 15GM / 60ML BTL PO ONE (14:35)
[2025-03-08] MEDS ORDERED: CALCIUM GLUC IN NACL, ISO-OSM 50 ML IV ONE (14:35)
[2025-03-08] MEDS ORDERED: Isosorbide Mononitrate 30 MG TABCR PO SCH (15:00)
[2025-03-08] MEDS ORDERED: Albuterol 2.5 MG/3 ML VIAL INH ONE (15:00)
[2025-03-08 16:09] LABS: Influenza A/2009-H1 Not Detected (NOT DETECT); SARS-Cov-2 (COVID-19), BioFire Not Detected (NOT DETECT)
--- NOTE | 2025-03-08 18:00 | NUR ---
PATIENT IN DIALYSIS. ON TELE. SENT GI PANEL. AVI CONSULTED. IN DROPLET.
[2025-03-08] MEDS ORDERED: Darbepoetin (Pharmacy Consult) SC SCH (18:30)
[2025-03-08 19:57] LABS: Campylobacter Sp Not Detected (NOT DETECT); E. Coli O157 Not Detected (NOT DETECT); Enteroaggregative E. coli-EAEC Not Detected (NOT DETECT); Enteropathogenic E. coli-EPEC Not Detected (NOT DETECT); Enterotoxigenic E. coli-ETEC Not Detected (NOT DETECT); Salmonella Sp Not Detected (NOT DETECT); Shiga Toxin-prod E. coli-STEC Not Detected (NOT DETECT); Shigella/Enteroin E. coli-EIEC Not Detected (NOT DETECT); Vibrio Sp Not Detected (NOT DETECT)
[2025-03-08] MEDS ORDERED: Banana Flakes/Tos 1 EA Powder Pack PO SCH (21:00)
[2025-03-08] MEDS ORDERED: HYDROcodone 5-APAP 325 TAB PO PRN (21:35)
[2025-03-09] VITALS (49 sets, daily range): BP systolic 60–129; BP diastolic 29–98
--- NOTE | 2025-03-09 06:31 | NUR ---
SHIFT SUMMARY: PT AOX3-4 SOME CONFUSION BUT REORIENTS EASILY. POOR MOTORSKILLS BUT IS ABLE TO PERFORM MOST ACTIONS AND CALLS APPROPRIATELY AT TIMES. TOLERATING DIALYSIS AND MEDICATIONS WELL. COMPLAINS OF SOME PAIN, MEDICATED PER EMR. PT PLACED ON 1L FLUID RESTRICTION AND WILL GET DIALYSIS TODAY PER DR CÁRDENAS. HAD MULTIPLE LOOSE STOOLS. HAS TESTED POSITIVE FOR CDIFF THIS AM. PT IN BED RESTING, BED IN LOWEST POSITION, CALL LIGHT IN REACH. CONTINUING CARE.
[2025-03-09 06:53] LABS: BASOPHILS ABSOLUTE AUTO 0.03 K/mm3 (0.00-0.23); BASOPHILS PERCENT AUTO 0 % (0-2); EOSINOPHILS ABSOLUTE AUTO 0.08 K/mm3 (0.00-0.68); EOSINOPHILS PERCENT AUTO 1 % (0-6); Hematocrit 33.3 % (37.0-53.0); Hemoglobin 10.8 g/dL (13.5-17.5); IMMATURE GRAN ABSOLUTE AUTO 0.06 K/mm3 (0.00-0.10); IMMATURE GRAN PERCENT AUTO 1 % (0-1); LYMPHOCYTES ABSOLUTE AUTO 0.21 K/mm3 (0.84-5.20); LYMPHOCYTES PERCENT AUTO 2 % (21-46); MONOCYTES ABSOLUTE AUTO 0.71 K/mm3 (0.16-1.47); MONOCYTES PERCENT AUTO 7 % (4-13); Mean Corpuscular HGB Conc 32.4 g/dL (31.5-36.5); Mean Corpuscular Volume 96 fL (80-100); NEUTROPHILS ABSOLUTE AUTO 8.84 K/mm3 (1.96-9.15); NEUTROPHILS PERCENT AUTO 89 % (41-73); NRBC ABSOLUTE 0.00 K/mm3 (0.00-0.02); NRBC Auto 0.0 /100 WBC (0.0-0.2); Platelet Count 151 K/mm3 (150-400); RDW Coefficient Variation 17.4 % (11.7-14.2); RDW Standard Deviation 60.8 fL (35.1-46.3)
[2025-03-09 07:18] LABS: Magnesium, Blood 2.4 mg/dL (1.6-2.4)
[2025-03-09 07:24] LABS: Albumin, Blood 2.5 g/dL (3.4-5.0); Anion Gap 15 mmol/L (3-11); Blood Urea Nitrogen 70 mg/dL (8-24); CO2, Blood 27 mmol/L (21-32); Calcium, Blood 8.6 mg/dL (8.5-10.1); Chloride, Blood 94 mmol/L (98-108); Creatinine, Blood 6.03 mg/dL (0.60-1.20); Glucose, Blood 114 mg/dL (70-99); Phosphorus, Blood 8.7 mg/dL (2.5-4.9); Potassium, Blood 5.7 mmol/L (3.5-5.5); Sodium, Blood 130 mmol/L (136-145)
[2025-03-09] MEDS ORDERED: Calcium Acetate 667 MG Gel Cap PO SCH (08:30)
[2025-03-09] MEDS ORDERED: Albumin (Human) 25gm/100ml 100 ML IV PRN (08:55)
[2025-03-09] MEDS ORDERED: Vitamin B Cmplx/Vit C/Folic Ac 1 Tab PO SCH (09:00)
[2025-03-09] MEDS ORDERED: AMLODIPINE BESYL5 MG PO (10:22)
--- NOTE | 2025-03-09 11:01 | NUR ---
0815 PATIENT TAKEN TO DIALYSIS
--- NOTE | 2025-03-09 12:22 | NUR ---
ARRIVAL TO UNIT: PATIENT ARRIVED INTUBATED TO THE UNIT AROUND 11:50. DR. PENA NOTIFIED AND AT BEDSIDE. CENTRAL LINE PLACED. PROPOFOL GTT INITIATED TO MAINTAIN TOLERANCE OF THE VENT AND PLACEMENT OF CENTRAL LINE. PATIENT'S FAMILY IN THE WAITING ROOM. CHAPLAIN SKYLAR PROVIDING SUPPORT TO HER. EKG PERFORMED WITH ABNORMAL RESULTS. CARDIOLOGY CONSULTED. DR. HERNANDEZ AT BEDSIDE. PATIENT MOVING ALL FOUR EXTREMITIES IN DEPENDENTLY. NO FOLLOWING OF DIRECTIONS AT THIS TIME (OR PRIOR TO STARTING OF PROPOFOL). VENT SETTINGS 18/430/5/100%. SPO2 99-100%. RR IN THE 20S. HR IN THE 100S. BLOOD PRESSURES STABLE AT THIS TIME WITH SBP IN THE 100S AND MAPS >65.
--- NOTE | 2025-03-09 12:24 | NUR ---
Spiritual Care : Code Blue - staff/family support Pt. coded in Dialysis as this registered art therapist was in the hallway. Assisted nurse protective signal operations supervisor in identifying the Pt. After Pt. is transferred to [facility], this registered art therapist contacted the Pts. sister to notify of the room change. Sat with gathering family and facilitated a life review of the Pt. in the hallway outside of ICU until sister arrived. Communicated to charge nurse of the family's presence and commuicated to the family that it could be an hour before the Pt. gets settled. Family verbalized gratitude for the spiritual care support.
[2025-03-09] MEDS ORDERED: NS 1,000 ML IV ONE ×2 (12:31→12:32)
[2025-03-09] MEDS ORDERED: Heparin Sodium 1000 Units/ML 10ML MDV ONE ×2 (12:31→13:58)
[2025-03-09] MEDS ORDERED: NS 250 ML IV ONE (12:31)
[2025-03-09] MEDS ORDERED: Midazolam HCl 1MG / ML 2ML Vial ONE (12:32)
[2025-03-09] MEDS ORDERED: FentaNYL Citrate 50 MCG/ML 2 ML Injection ONE (12:32)
[2025-03-09] MEDS ORDERED: Phenylephrine HCl 100 MCG/ML-NS 10MLSYR (1MG/10ML) ONE (12:48)
--- NOTE | 2025-03-09 12:56 | NUR ---
DIALYSIS tREATMENT 1130 BP 62/41, PT ASYMPTOMATIC AT THIS TIME. AKSED PT TO LOWER HIS ARM TO ADJUST BP CUFF AND RECHECK. 1131 BP STILL LOW AT 62/69. PT HAD 8 MINUTES LEFT OF TX. TX TERMINATED EARLY AND BLOOD RETURNED WITH 500NS BOLUS IN ADDITION TO RINSBACK. THIS RN CALLED TELE AND PT WAS REPORTED TO BE NSR AT 61. POST TX BP 98/46. PT BECAME UNRESPONSIVE AND CODE BLUE WAS CALLED AT 1135. CODE TEAM ARRIVED AND STARTED CPR AT 1142. REPORT GIVEN TO CODE TEAM. PT INTUBATED AND TRANSPORTED TO ICU4. DR. CÁRDENAS NOTIFIED OF EVENT.
[2025-03-09 13:07] LABS: pH Blood Venous 7.36 (7.34-7.37)
[2025-03-09 13:18] LABS: BASOPHILS ABSOLUTE AUTO 0.01 K/mm3 (0.00-0.23); BASOPHILS PERCENT AUTO 0 % (0-2); EOSINOPHILS ABSOLUTE AUTO 0.10 K/mm3 (0.00-0.68); EOSINOPHILS PERCENT AUTO 2 % (0-6); Hematocrit 29.5 % (37.0-53.0); Hemoglobin 9.6 g/dL (13.5-17.5); IMMATURE GRAN ABSOLUTE AUTO 0.05 K/mm3 (0.00-0.10); IMMATURE GRAN PERCENT AUTO 1 % (0-1); LYMPHOCYTES ABSOLUTE AUTO 0.11 K/mm3 (0.84-5.20); LYMPHOCYTES PERCENT AUTO 2 % (21-46); MONOCYTES ABSOLUTE AUTO 0.32 K/mm3 (0.16-1.47); MONOCYTES PERCENT AUTO 5 % (4-13); Mean Corpuscular HGB Conc 32.5 g/dL (31.5-36.5); Mean Corpuscular Volume 96 fL (80-100); NEUTROPHILS ABSOLUTE AUTO 5.29 K/mm3 (1.96-9.15); NEUTROPHILS PERCENT AUTO 90 % (41-73); NRBC ABSOLUTE 0.00 K/mm3 (0.00-0.02); NRBC Auto 0.0 /100 WBC (0.0-0.2); Platelet Count 120 K/mm3 (150-400); RDW Coefficient Variation 17.3 % (11.7-14.2); RDW Standard Deviation 61.0 fL (35.1-46.3)
--- NOTE | 2025-03-09 13:26 | NUR ---
PATIENT TO MEDICAL CLAIMS EXAMINER: DR. HERNANDEZ NOTIFIED STAFF THAT THE PATIENT WOULD BE GOING TO MEDICAL CLAIMS EXAMINER URGENTLY. CENTRAL LINE PLACED. OG TUBE PLACED. CHEST XRAY VERIFIED PLACEMENT OF ALL THREE. PRIOR TO LEAVING FOR THE MEDICAL CLAIMS EXAMINER, PATIENT EXPERIENCED SOME LOW BPS (MAP OF 55). LEVOPHED STARTED. NEOSYNEPHRINE PUSH GIVEN PER MD ORDERS FROM [facility]. NEW CHEST PADS PLACED AND PATIENT ON MEDICAL CLAIMS EXAMINER ZOLL. PATIENT TRANSFERRED TO MEDICAL CLAIMS EXAMINER WITH MEDICAL CLAIMS EXAMINER TEAM. PATIENT'S FAMILY NOTIFIED BY SUPERVISOR EXTRUSION AMELIA.
[2025-03-09 13:39] LABS: Alanine Aminotransfer (ALT/SGP 27.0 U/L (12-78); Albumin, Blood 2.9 g/dL (3.4-5.0); Albumin/Globulin Ratio 0.9 (0.8-1.8); Anion Gap 11.0 mmol/L (3-11); Aspartate Aminotrans (AST/SGOT 28.0 U/L (12-37); Bilirubin, Total 1.4 mg/dL (0.1-1.0); Blood Urea Nitrogen 39.0 mg/dL (8-24); CO2, Blood 30.0 mmol/L (21-32); Calcium, Blood 9.0 mg/dL (8.5-10.1); Chloride, Blood 95.0 mmol/L (98-108); Creatinine, Blood 3.76 mg/dL (0.60-1.20); Globulin, Blood 3.1 g/dL (2.2-4.0); Glucose, Blood 91.0 mg/dL (70-99); Magnesium, Blood 2.4 mg/dL (1.6-2.4); Phosphorus, Blood 6.0 mg/dL (2.5-4.9); Potassium, Blood 3.9 mmol/L (3.5-5.5); Sodium, Blood 132.0 mmol/L (136-145); Total Protein, Blood 6.0 g/dL (6.4-8.2)
[2025-03-09] MEDS ORDERED: Magnesium Sulfate 500 MG / ML 2ML Vial IV ONE (14:03)
[2025-03-09] MEDS ORDERED: Sodium Bicarb 8.4% 50 mEq Syringe IV ONE (14:03)
[2025-03-09] MEDS ORDERED: NS 500 ML IV ONE (14:15)
[2025-03-09] MEDS ORDERED: Ipratropium/Albuterol SulF 2.5-0.5MG/3 ML Amp INH SCH (15:10)
[2025-03-09] MEDS ORDERED: Doxycycline Hyclate 100 MG in Dextrose 5% 250 ML IV SCH (15:30)
--- NOTE | 2025-03-09 15:34 | NUR ---
RESPONDED TO A CODE BLUE. ASSESTED IN CONTACTING PROVIDER. ROUNDED ON PT AFTER HE ARRIVED TO ICU. PATIENT HAS A SISTER WHO CAME TO SEE HIM. SHE WAS NOT IN THE ROOM WHEN I ROUNDED. PATIENT WAS IN INSURANCE ADVISOR. DISCUSSED CASE WITH BSRN.
[2025-03-09] MEDS ORDERED: CefTRIAXone Sodium 1,000 MG in NS 100 ML IV SCH (16:00)
[2025-03-09] MEDS ORDERED: Phenylephrine HCl 100 MCG/ML-NS 10MLSYR (1MG/10ML) IV ONE (16:31)
[2025-03-09] MEDS ORDERED: Darbepoetin Alfa In Albumn Sol 40 MCG/0.4 ML SC SCH (17:00)
[2025-03-09] MEDS ORDERED: Vancomycin HCL 250 MG/5 ML 5ML Oral Syringe PT SCH (18:00)
--- NOTE | 2025-03-09 19:06 | NUR ---
ASSUMPTION OF CARE PT INTUBATED & SEDATED. PROPOFOL INFUSING @ 25MCG/KG/MIN. FAMILY MEMBER AT BEDSIDE DURING BEDSIDE REPORT. PT DOES NOT RESPOND TO VERBAL STIMULI. PER REPORT, PT RETRACTS FROM PAINFUL STIMULI. VENT SETTINGS CURRENTLY 16/430/11/05, SPO2 >96%. MAP >65, LEVOPHED INFUSING @ 6MCG/MIN. ARTERIAL LINE c SHEATH TO R GROIN C/D/I & SOFT. L IJ ACCESS c MEDS/FLUIDS INFUSING PER EMAR. FISTUAL TO MELO. PULSES TO BILAT LEs VIA DOPPLER. SHAIKH IN PLACE, NO URINE IN SHAIKH. OGT CLAMPED. ISOLATION PRECUATIONS UPHELD.
--- NOTE | 2025-03-09 19:44 | NUR ---
SHIFT SUMMARY: NEURO: PATIENT ABLE TO WITHDRAW BLE TO PAINFUL STIMULI. MINIMAL MOVEMENT NOTED IN BUE WITH PAINFUL STIMULI. PUPILS WERE NOT REACTIVE TO LIGHT THIS AFTERNOON. 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 NO FOLLOWING OF DIRECTIONS NOTED. NO ATTEMPT TO OPEN EYES NOTED. PROPOFOL DECREASED TO 25 MCG/KG/MIN THIS AFTERNOON. PATIENT AFEBRILE THROUGHOUT SHIFT. 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 SITE REMAINED SOFT THROUGHOUT THE SHIFT. PEDAL PULSES PRESENT (ASSESSED WITH DOPPLER) THROUGHOUT THE SHIFT. SITE UTLIZED FOR ARTERIAL BPS. LEVOPHED TITRATED TO MAINTAIN MAPS >65. AT END OF SHIFT, LEVOPHED AT 6 MCG/MIN. FISTUAL IN UPPER RIGHT ARM. RESPIRATORY: PATIENT TOLERATED VENT THROUGHOUT THE SHIFT. SETTINGS AC/VC 16/430/5/70%. SPO2 >94%. COARSE LUNG SOUNDS NOTED. SPUTUM SPECIMAN SENT. GI/: OGT CLAMPED. PLACEMENT VERIFIED VIA XRAY. NO BOWEL MOVEMENT DURING THE SHIFT. SHAIKH IN PLACE. MINIMAL URINE OUTPUT. PATIENT NEARLY COMPLETED DIALYSIS TODAY PRIOR TO CARDIAC EVENT. PSYCHSOCIAL: PATIENT VISITED BY SISTER AND NIECE. THEY ARE CALM AND SUPPORTIVE OF THE PATIENT.
[2025-03-09] MEDS ORDERED: Cetylpyridinium Chloride 1 EA MISC MT SCH (20:00)
[2025-03-09] MEDS ORDERED: NS 500 ML IV SCH (22:35)
[2025-03-10] VITALS (30 sets, daily range): BP systolic 83–142; BP diastolic 45–90
[2025-03-10] MEDS ORDERED: Hydrogen Peroxide 1.5 % Solution MT SCH
[2025-03-10 04:23] LABS: BASOPHILS ABSOLUTE AUTO 0.06 K/mm3 (0.00-0.23); BASOPHILS PERCENT AUTO 1 % (0-2); EOSINOPHILS ABSOLUTE AUTO 0.09 K/mm3 (0.00-0.68); EOSINOPHILS PERCENT AUTO 1 % (0-6); Hematocrit 35.2 % (37.0-53.0); Hemoglobin 11.5 g/dL (13.5-17.5); IMMATURE GRAN ABSOLUTE AUTO 0.07 K/mm3 (0.00-0.10); IMMATURE GRAN PERCENT AUTO 1 % (0-1); LYMPHOCYTES ABSOLUTE AUTO 0.44 K/mm3 (0.84-5.20); LYMPHOCYTES PERCENT AUTO 5 % (21-46); MONOCYTES ABSOLUTE AUTO 0.67 K/mm3 (0.16-1.47); MONOCYTES PERCENT AUTO 7 % (4-13); Mean Corpuscular HGB Conc 32.7 g/dL (31.5-36.5); Mean Corpuscular Volume 95 fL (80-100); NEUTROPHILS ABSOLUTE AUTO 7.69 K/mm3 (1.96-9.15); NEUTROPHILS PERCENT AUTO 85 % (41-73); NRBC ABSOLUTE 0.00 K/mm3 (0.00-0.02); NRBC Auto 0.0 /100 WBC (0.0-0.2); Platelet Count 188 K/mm3 (150-400); RDW Coefficient Variation 17.5 % (11.7-14.2); RDW Standard Deviation 60.7 fL (35.1-46.3)
[2025-03-10 06:12] LABS: Anion Gap 14.0 mmol/L (3-11); Blood Urea Nitrogen 48.0 mg/dL (8-24); CO2, Blood 26.0 mmol/L (21-32); Calcium, Blood 9.3 mg/dL (8.5-10.1); Chloride, Blood 92.0 mmol/L (98-108); Creatinine, Blood 4.51 mg/dL (0.60-1.20); Glucose, Blood 115.0 mg/dL (70-99); Magnesium, Blood 2.4 mg/dL (1.6-2.4); Phosphorus, Blood 6.9 mg/dL (2.5-4.9); Potassium, Blood 4.8 mmol/L (3.5-5.5); Sodium, Blood 127.0 mmol/L (136-145)
--- NOTE | 2025-03-10 06:21 | NUR ---
SHIFT SUMMARY PT INTUBATED/SEDATED. PT WITHDRAW TO PAINFUL STIMULI. NO FOLLOWING DIRECTIONS. PROPOFOL INFUSING @ 25 MCG/KG/MIN. TOLERATING VENT, SETTINGS CURRENTLY AT 16/430/5/45%, SPO2 >97%. NSR c HR 70s, MAP >65. LEVOPHED CURRENTLY INFUSING @ 4 MCG/MIN, FREQUENTLY TITRATED BETWEEN 4 AND 6 THROUGHOUT THE NIGHT. R GROIN ARTERIAL ACCESS SITE C/D/I, TENDER, ARTERIAL BPs IN USE. FISTULA TO MELO. BILAT PEDAL PULSES ASSESSED c DOPPLER. PASSING FLATUS, NO BMs. OG TUBE CLAMPED, TOLERATERS MEDICATION ADMIN. SHAIKH IN USE c NO URINE OUTPUT OVERNIGHT, MIN OUTPUT BASELINE R/T DIALYSIS. PER , NO DIALYSIS TODAY. Q2 TURNS c BED CHANGE/BATH OVERNIGHT. WILL REPORT TO DAY RN.
--- NOTE | 2025-03-10 18:14 | NUR ---
HYPOTENSION PT WITH ACUTE EPISODE OF SIGNIFICANT HYPOTENSION WITH ABP MAP DOWN TO LOW 40'S. LEVOPHED GTT RAPIDLY TITRATED UP FROM 2 MCG/MIN TO 10 MCG/MIN. PT POSITIONED SUPINE, OFF OF LEFT SIDE. ABP IMPROVED AT THIS TIME. WILL CONTINUE TO MONITOR.
--- NOTE | 2025-03-10 18:53 | NUR ---
SHIFT SUMMARY PT IS SEDATED WITH PROPOFOL WITH A RASS OF -3. PT CONTINUES TO BE INTUBATED, TOELRATING VENT APPROPRIATLEY WITH SPO2 >95%. PT BP HAS BEEN SATBLE T/O THE DAY UNTIL THIS EVENING WHEN HE HAD AN EPISODE OF PROFOUND HYPOTENSION; CORRECTED WITH LEVOPHED TITRATION (SEE NURSE NOTE), PT HAS BEEN IN SINUS RHTYM WITH HR IN THE 80'S. PT SHAIKH REMOVED TODAY DUE TO ANURIA PER PROVIDER ORDER AND NOW Q12HR BLADDER SCAN, NO BM TODAY. TUBE STARTED TODAY AND PT IS TOLERATING WELL. LEVOPHED AND PROPOFOL CONTINUE TO INFUSE PER TITRATION ORDERS. WILL REPORT TO ONCOMING NIGHTSWAFT NURSE
[2025-03-10] MEDS ORDERED: Protein Supplement 30 ML UD PT SCH (21:00)
--- NOTE | 2025-03-10 22:01 | NUR ---
ASSUMPTION OF CARE/ASSESSMENT: ASSUMED CARE OF PT AT 1900, BEDSIDE SHIFT REPORT RECIEVED FROM FELIX RN'S. PT REMAINS INTUBATED AND SEDATED. PT GRIMACING TO PAIN STIMULI AND PERIODIC MOVEMENTS OF BLE AND HEAD OBSERVED WHEN IN THE ROOM. PT DOES NOT OPEN EYES TO PAIN. PUPILS ARE PERRLA, SLUGGISH TO LIGHT. VENT SETTINGS AC/VC 16/430/5/40%, LUNGS CLEAR WITH DIM BASES AND SPO2 94<. SR ON MONITOR WITH OCCASIONAL PVC'S; HR 80'S, ABP 130'S, LEVO GTT @ [address] WITH NEPRO @ 40 MLS (GOAL RATE). PT'S SHAIKH REMOVED ON DAYSHI DUE TO ANURIA; PER DR. PEAN BLADDER SCANS Q 12 HRS. BLADDER SCANNED WITH 103 MLS NOTED. PT HAS LIJ CENTRAL LINE THAT IS INFUSING PROPOFOL @ 15 MCG. R. FEM ARTERIAL SHEATH IN PLACE WITH ARTLINE; SITE SOFT, NO BLEEDING OR HEMATOMA NOTED. LWR AND LFA PIV'S PATENT AND SALINE LOCKED. FLORINDA BRUCE, BY THIS EVENING AND RECIEVED UPDATE OR CURRENT STATUS AND TREATMENT PLAN.
[2025-03-11] VITALS (37 sets, daily range): BP systolic 99–160; BP diastolic 56–82
[2025-03-11 03:48] LABS: BASOPHILS ABSOLUTE AUTO 0.03 K/mm3 (0.00-0.23); BASOPHILS PERCENT AUTO 0 % (0-2); EOSINOPHILS ABSOLUTE AUTO 0.07 K/mm3 (0.00-0.68); EOSINOPHILS PERCENT AUTO 1 % (0-6); Hematocrit 30.5 % (37.0-53.0); Hemoglobin 10.2 g/dL (13.5-17.5); IMMATURE GRAN ABSOLUTE AUTO 0.04 K/mm3 (0.00-0.10); IMMATURE GRAN PERCENT AUTO 1 % (0-1); LYMPHOCYTES ABSOLUTE AUTO 0.43 K/mm3 (0.84-5.20); LYMPHOCYTES PERCENT AUTO 6 % (21-46); MONOCYTES ABSOLUTE AUTO 0.51 K/mm3 (0.16-1.47); MONOCYTES PERCENT AUTO 7 % (4-13); Mean Corpuscular HGB Conc 33.4 g/dL (31.5-36.5); Mean Corpuscular Volume 93 fL (80-100); NEUTROPHILS ABSOLUTE AUTO 6.54 K/mm3 (1.96-9.15); NEUTROPHILS PERCENT AUTO 86 % (41-73); NRBC ABSOLUTE 0.00 K/mm3 (0.00-0.02); NRBC Auto 0.0 /100 WBC (0.0-0.2); Platelet Count 175 K/mm3 (150-400); RDW Coefficient Variation 17.2 % (11.7-14.2); RDW Standard Deviation 59.3 fL (35.1-46.3)
[2025-03-11 04:11] LABS: Anion Gap 14.0 mmol/L (3-11); Blood Urea Nitrogen 57.0 mg/dL (8-24); CO2, Blood 26.0 mmol/L (21-32); Calcium, Blood 9.1 mg/dL (8.5-10.1); Chloride, Blood 92.0 mmol/L (98-108); Creatinine, Blood 4.66 mg/dL (0.60-1.20); Glucose, Blood 144.0 mg/dL (70-99); Magnesium, Blood 2.4 mg/dL (1.6-2.4); Phosphorus, Blood 6.7 mg/dL (2.5-4.9); Potassium, Blood 5.1 mmol/L (3.5-5.5); Sodium, Blood 127.0 mmol/L (136-145)
--- NOTE | 2025-03-11 06:42 | NUR ---
SHIFT SUMMARY: NO ACUTE CHANGES OVERNIGHT, VSS THROUGHOUT THE SHIFT. PT REMAIN INTUBATED AND SEDATED. VENT SETTINGS REMAIN UNCHANGED. LEVO GTT @ 4 MCG. SBP 120-130'S, MAP 65<. R. FEM SHEATH WITH ARTERIAL LINE REMAINS PATENT, SOFT. LIJ IN PLACE THAT IS PATENT AND INFUSING MEDS PER EMAR. PT RECIEVED CHG BATH THIS SHIFT. PT'S NIECE UPDATED THROUGHOUT THE NIGHT. WILL REPORT OFF TO ONCOMING RN.
[2025-03-11] MEDS ORDERED: Albumin (Human) 25gm/100ml 100 ML IV PRN (08:05)
--- NOTE | 2025-03-11 15:13 | NUR ---
SBT AND SEDATION INTERRUPTION: INITIATED SBT AND PROPOFOL ON STANDBY. SPONTANEOUS 10/5/40%. PATIENT TOLERATING WELL. SPO2 >94%.
[2025-03-11] MEDS ORDERED: Vancomycin (Pharmacy Consult) IV SCH (15:20)
--- NOTE | 2025-03-11 16:32 | NUR ---
END OF SBT. PATIENT TOLERATED WELL. AT THE END, RR INCREASED INTO THE MID TO HIGH 20S. PATIENT APPEARED COMFORTABLE THROUGHOUT. PROPOFOL RESTARTED AT 5 MCG/KG/MIN. LEVOPHED CONTINUES TO BE ON SB
--- NOTE | 2025-03-11 18:58 | NUR ---
SHIFT SUMMARY: NEURO: DURING PATIENT'S SEDATION INTERRUPTION, PATIENT ABLE TO OPEN EYES UPON COMMAND. NO OTHER FOLLOWING DIRECTION NOTED. MOVEMENT NOTED IN ALL 4 EXTREMITIES. AT THE END OF SHIFT, PROPOFOL AT 5 MCG/KG/MIN. RESPIRATORY: PATIENT TOLERATED VENT WELL THROUGHOUT THE SHIFT. SPO2 >94%. PATIENT TOLERATED SBT FOR ABOUT 1 HOUR. SETTINGS AC/VC 16/430/5/45%. CARDIAC: PATIENT TOLERATED DIALYSIS. DID REQUIRE A SHORT TERM INCREASE IN LEVOPHED TO MAINTAIN MAPS >65. ABLE TO QUICKLY TITRATE DOWN. BY THE END OF THE SHIFT, LEVOPHED ON STAND BY. SBPS IN THE 120S, MAPS >65. HR IN THE 80S. CONTINUES TO HAVE EDEMA FROM THE WAIST DOWN. ARTERIAL LINE REMOVED AT THE END OF SHIFT. CONTINUED TO REQUIRE DOPPLER FOR PEDAL PULSES. GI/: PATIENT TOLERATING TUBE FEEDINGS. THE NEPRO CONTINUES AT GOAL FO 40 MLS/HR. TWO SOFT, FORMED BOWEL MOVEMENTS TODAY. BLADDER SCAN WAS 144 TODAY. PSYCHSOCIAL: PATIENT VISITED BY HIS SISTER TODAY. SHE IS CALM AND ENCOURAGING AT THE BEDSIDE.
--- NOTE | 2025-03-11 21:13 | NUR ---
ASSUMPTION OF CARE/ASSESSMENT: ASSUMED CARE OF PT AT 1900, REPORT RECIEVED FROM CHERISE OLGUIN. PT REMAINS INTUBATED AND SEDATED WITH PROPFOL GTT @ 5 MCG AND VENT SETTINGS AC/VC 16/430/5/40%. PT RESPONSIVE TO VERBAL STIMULI, OPENNING EYES BUT NOT FOLLOWING COMMANDS. LUNGS CLEAR WITH DIM BASES, SPO2 94<. SR ON MONITOR WITH HR 80'S, SBP 110-120 AND LEVO ON SB. OGT IN PLACE WITH NEPRO @ 40 MLS/HR (GOAL RATE). R. FEMORAL DRESSING REMAINS INTACT WITH SMALL AMOUNTS OF SEROSANGUINEOUS OUTPUT NOTED; SITE REMAINS SOFT, NO HEMATOMA PRESENT. LIJ PATENT AND INFUSING.
[2025-03-12] VITALS (74 sets, daily range): BP systolic 77–124; BP diastolic 49–78
[2025-03-12 04:49] LABS: BASOPHILS ABSOLUTE AUTO 0.02 K/mm3 (0.00-0.23); BASOPHILS PERCENT AUTO 0 % (0-2); EOSINOPHILS ABSOLUTE AUTO 0.14 K/mm3 (0.00-0.68); EOSINOPHILS PERCENT AUTO 2 % (0-6); Hematocrit 26.2 % (37.0-53.0); Hemoglobin 8.6 g/dL (13.5-17.5); IMMATURE GRAN ABSOLUTE AUTO 0.04 K/mm3 (0.00-0.10); IMMATURE GRAN PERCENT AUTO 1 % (0-1); LYMPHOCYTES ABSOLUTE AUTO 0.36 K/mm3 (0.84-5.20); LYMPHOCYTES PERCENT AUTO 6 % (21-46); MONOCYTES ABSOLUTE AUTO 0.51 K/mm3 (0.16-1.47); MONOCYTES PERCENT AUTO 9 % (4-13); Mean Corpuscular HGB Conc 32.8 g/dL (31.5-36.5); Mean Corpuscular Volume 94 fL (80-100); NEUTROPHILS ABSOLUTE AUTO 4.66 K/mm3 (1.96-9.15); NEUTROPHILS PERCENT AUTO 81 % (41-73); NRBC ABSOLUTE 0.00 K/mm3 (0.00-0.02); NRBC Auto 0.0 /100 WBC (0.0-0.2); Platelet Count 103 K/mm3 (150-400); RDW Coefficient Variation 17.2 % (11.7-14.2); RDW Standard Deviation 58.5 fL (35.1-46.3)
[2025-03-12 05:15] LABS: Alanine Aminotransfer (ALT/SGP 24 U/L (12-78); Albumin, Blood 2.3 g/dL (3.4-5.0); Albumin/Globulin Ratio 0.7 (0.8-1.8); Anion Gap 11 mmol/L (3-11); Aspartate Aminotrans (AST/SGOT 54 U/L (12-37); Bilirubin, Total 0.9 mg/dL (0.1-1.0); Blood Urea Nitrogen 55 mg/dL (8-24); CO2, Blood 28 mmol/L (21-32); Calcium, Blood 8.8 mg/dL (8.5-10.1); Chloride, Blood 93 mmol/L (98-108); Creatinine, Blood 4.21 mg/dL (0.60-1.20); Globulin, Blood 3.1 g/dL (2.2-4.0); Glucose, Blood 92 mg/dL (70-99); Magnesium, Blood 2.3 mg/dL (1.6-2.4); Phosphorus, Blood 5.7 mg/dL (2.5-4.9); Potassium, Blood 4.4 mmol/L (3.5-5.5); Sodium, Blood 128 mmol/L (136-145); Total Protein, Blood 5.4 g/dL (6.4-8.2); Vancomycin, Random 21.3 ug/mL
--- NOTE | 2025-03-12 05:39 | NUR ---
SHIFT SUMMARY: NO ACUTE CHANGES OVERNIGHT; VSS TRHOUGHOUT THE SHIFT. VENT SETTINGS REMAINS AC/VC 16/430/5/40%. PT HAS HAD NUMEROUS BOWEL MOVEMENTS; EVELIN NARVAEZ BM. BLADDER SCAN THIS SHIFT WTH 123 MLS NOTED. R. FEMORAL SITE WITH DRESSING OVER HAS SEROSANGUINEOUS DRAINAGE OBSERED; SITE SOFT, NO HEMATOMA PRESENT. PT'S NIECE UPDATED THIS SHIFT. BED LOWERED, CALL LIGHT IN REACH.
--- NOTE | 2025-03-12 08:00 | NUR ---
ASSUMPTION OF CARE RECEIVED REPORT FROM [facility] NURSE. PT ON VENT, AC/16/430/5/40%. LUNG SOUNDS DIM AND CLEAR IN RLL, MANUEL, LLL. RUL MORE COARSE. HR IN 70S, MAp >65. SAT STARTED, RASS AT -1. PT ABLE TO FOLLOW COMMANDS. OG TUBE NOTED AT 55CM WHEN INSERTION IT WAS AT 63CM. ADVANCED OG TUBE UNTIL 63CM, ABD XRAY VERIFIED PLACEMENT. PAUSED TUBE FEEDINGS AND HELD PT MEDS UNTIL VERIFIED PLACEMENT. TUBE FEEDINGS RESUMED ONCE VERIFIED. FISTULA IN MELO ASSESSED, POSITIVE BRUIT/THRILL. EDEMATOUS +2 IN LOWER EXTREMITIES AND SCROTUM. DEPENDENT EDEMA NOTED.
[2025-03-12] MEDS ORDERED: Nitroglycerin 1 INCH/GM PKT TOP SCH (16:00)
[2025-03-12] MEDS ORDERED: Heparin Sodium,Porcine 5,000 UNIT/0.5 ML SDV SC SCH (16:00)
[2025-03-12] MEDS ORDERED: Sevelamer Carbonate 2.4 GM / PKT PT SCH (17:00)
[2025-03-12] MEDS ORDERED: Calcium Acetate 667 MG Gel Cap PT SCH (17:30)
--- NOTE | 2025-03-12 17:56 | NUR ---
SHIFT SUMMARY PT INTUBATED AND SEDATED, DURING SAT/SBT RASS VARIED FROM -1 TO +2. ON SAT PT WAS ABLE TRACK, FOLLOW COMMANDS AND NOD HIS HEAD YES AND NO. PT ON SAT FROM 0745 T0 1200, RESTARTED PROP D/T AGITATION AND ATTEMPTING TO PULL THE ETT TUBE. TITRATED UP TO 35MCG/KG/HR, MAP DECREASED TO <65, RESTARTED LEVO TO MAINTAIN MAP >65 D/T RASS AT +1 TO +2, UNABLE TO TITRATE PROP DOWN. DR. CARR PRECEDEX, CURRENTLY TITRATING THE PROP OFF IN REPLACEMENT WITH PRECEDEX WITH THE GOAL OF TITRATING LEVO OFF. HR IN 70-80S, MAP >65 WITH LEVO DRIP. PT WAS ON SBT FOR APPROX 6 HRS, TOLERATED WELL. BACK ON VENT SETTINGS AC/VC 16/430/5/40%. PT +2 EDEMA IN BUE, BLE, SCROTUM, AND DEPENDENT EDEMA. PT ANURIA, BLADDER SCAN <120MLS IN BLADDER. LOOSE BOWEL MOVEMENT THIS AM. BED LOWERED AND NO NEEDS NOTED AT THIS TIME.
[2025-03-12] MEDS ORDERED: FentaNYL Citrate 50 MCG/ML 2 ML Injection IV PRN (19:05)
[2025-03-12] MEDS ORDERED: Banana Flakes/Tos 1 EA Powder Pack PT SCH (21:00)
--- NOTE | 2025-03-12 21:38 | NUR ---
ASSUMPTION OF CARE/ASSESSMENT: ASSUMED CARE OF PT AT 1900; BEDSIDE SHIFT REPORT RECIEVED FROM CE RN'S. PT REMAINS INTUBATED AND SEDATED. VENT SETTINGS REMAIN UNCHANGED, AC/VC 16/430/5/40%. PT SEDATED WITH PRECEDEX GTT @ 1.0 MCG, PROPOFOL ON SB, RAAS -4. PT GRIMACING TO PAIN, DOES NOT OPEN EYES. LUGNS ARE CLEAR WITH DIM BASES, SPO2 94<. SR ON MONITOR WITH HR 60'S SBP 110, MAPS 65< AND LEVO @ 2 MCG. PT HAS OGT TUBE MEASURING @ 63 CM; NEPRO INFUSING @ 40 MLS/HR. PT ANURIC, PROVIDERS AWARE, BLADDER SCAN Q 12 HRS PER PROVIDER. LIJ PATENT AND INFUSING MEDS PER EMAR.
[2025-03-13] VITALS (67 sets, daily range): BP systolic 92–144; BP diastolic 56–79
[2025-03-13 04:51] LABS: BASOPHILS ABSOLUTE AUTO 0.04 K/mm3 (0.00-0.23); BASOPHILS PERCENT AUTO 1 % (0-2); EOSINOPHILS ABSOLUTE AUTO 0.16 K/mm3 (0.00-0.68); EOSINOPHILS PERCENT AUTO 2 % (0-6); Hematocrit 30.9 % (37.0-53.0); Hemoglobin 10.1 g/dL (13.5-17.5); IMMATURE GRAN ABSOLUTE AUTO 0.12 K/mm3 (0.00-0.10); IMMATURE GRAN PERCENT AUTO 2 % (0-1); LYMPHOCYTES ABSOLUTE AUTO 0.42 K/mm3 (0.84-5.20); LYMPHOCYTES PERCENT AUTO 6 % (21-46); MONOCYTES ABSOLUTE AUTO 0.81 K/mm3 (0.16-1.47); MONOCYTES PERCENT AUTO 11 % (4-13); Mean Corpuscular HGB Conc 32.7 g/dL (31.5-36.5); Mean Corpuscular Volume 96 fL (80-100); NEUTROPHILS ABSOLUTE AUTO 5.75 K/mm3 (1.96-9.15); NEUTROPHILS PERCENT AUTO 79 % (41-73); NRBC ABSOLUTE 0.00 K/mm3 (0.00-0.02); NRBC Auto 0.0 /100 WBC (0.0-0.2); Platelet Count 140 K/mm3 (150-400); RDW Coefficient Variation 17.0 % (11.7-14.2); RDW Standard Deviation 59.0 fL (35.1-46.3)
[2025-03-13 05:13] LABS: Albumin, Blood 2.3 g/dL (3.4-5.0); Anion Gap 13 mmol/L (3-11); Blood Urea Nitrogen 63 mg/dL (8-24); CO2, Blood 27 mmol/L (21-32); Calcium, Blood 9.4 mg/dL (8.5-10.1); Chloride, Blood 91 mmol/L (98-108); Creatinine, Blood 4.54 mg/dL (0.60-1.20); Glucose, Blood 172 mg/dL (70-99); Magnesium, Blood 2.6 mg/dL (1.6-2.4); Phosphorus, Blood 6.1 mg/dL (2.5-4.9); Potassium, Blood 4.9 mmol/L (3.5-5.5); Sodium, Blood 126 mmol/L (136-145); Vancomycin, Random 18.5 ug/mL
--- NOTE | 2025-03-13 06:34 | NUR ---
SHIFT SUMMARY: NO ACUTE CHANGES OVERNGIHT, VSS THROUGHOUT THE SHIFT. PT REMAINS INTUBATED AND SEDATED. VENT SETTINGS REMAIN UNCHANGED. PRCEDEX GTT @ 0.6 MCG. LEVO @ 2 MCG. BLADDER SCAN THIS SHIFTED SHOWED 213 MLS. WILL REPORT OFF TO ONCOMING RN.
[2025-03-13] MEDS ORDERED: Vitamin B Cmplx/Vit C/Folic Ac 1 Tab PT SCH (09:00)
--- NOTE | 2025-03-13 09:04 | NUR ---
AM NOTE... ASSUMED CARE OF PT AT 0700, PT IS INTUBATED AND SEDATED, PRECEDEX DRIP IS RUNNING AT 0.6MCG/KG/HR WITH A RASS OF -2. VENT SETTINGS ARE AC/VC: 16/430/8/40% WITH O2 SATS>95% L/S CRACKELS HARD T/O DIM IN THE BASES. ET TUBE IS 8.0 25 AT THE GUMS. PT IS IN SR IN THE 70'S-80'S BP IS STABLE WITH LEVOPHED RUNNING AT 2MCG/MIN TO KEEP MAPS>65 D/T SEDATION. PT HAS 2+ PITTING EDEMA TO HIS BUE, BLE AND TRUNK, DEPENDENT EDEMA TO HIS SCROTUM AND PENIS. BLADDER SCAN SHOWED 230MLS. BT PRESENT AND HYPOACTIVE, ABD SOFT TO PALPATION. LEFT IJ CENTRAL LINE PATENT. PLANS FOR DIALYSIS THIS MORNING.
--- NOTE | 2025-03-13 17:29 | NUR ---
SHIFT SUMMARY.... PT HAD DIALYSIS THIS SHIFT, 4L WAS REMOVED PER BODY TEAM MEMBER. PT WAS ON 4MCG/MIN OF LEVOPHED BUT THIS WAS TITRATED OFF ONCE HIS TREATMENT WAS OVER. CURRENTLY THE PT IS ON PRECEDEX DRIP AT 0.4MCG/KG/HR WITH A RASS OF 0. PT WAS CHANGED TO SP 10/8 AND 40% AT 1450, APROX 1HR LATER HE WAS CHANGED TO 7/8 AND 40% PT IS TOLERATING THIS WELL SO FAR. A BLADDER SCAN WAS DONE AT 1600 WHICH SHOWED 236MLS IN THE BLADDER. PT HAS NOT HAD A BM THIS SHIFT. HE WAS TURNED Q2HRS THIS SHIFT. TUBE FEEDS RUNNING AT 40MLS/HR WHICH IS THE GOAL RATE, PT IS TOLERATING THIS WELL.
--- NOTE | 2025-03-13 20:55 | NUR ---
ASSUMPTION OF CARE NOTE: ASSUMED CARE OF PT AT 1900 PT IS INTUBATED AND SEDATED WITH PRECEDEX INFUSING TO PATENT LIJ AT 0.8MCG/KG/HR. PRECEDEX TITRATED TO 0.6 TO ASSESS NEURO AND PT OPENS EYES ANDS TRACKS YOU AND IS ABLE TO NOD YES AND NO. PT NODDED YES WHEN ASKED IF HE WAS IN THE HOSPITAL AND YES WHEN ASKED IF THE YEAR WAS 2023. PT NODDED NO TO PAIN. PT STARTED TO ACT UNCOMFORTABLE AND GRIMACING AND TRYING TO RAISE ARMS SO PRECEDEX TITRATED BACK TO 0.8 FOR COMFORT. PT CURRENTLY IN BUE SOFT RESTRAINS AND HAS BEEN TURNED FOR COMFORT TO L SIDE. SPON. 7/40%/8P. L WRIST AND LFA PIV'S REMOVED. OG TUBE PATENT AND TUBE FEEDS AT GOAL AT 40 AND INFUSING.BED LOW AND LOCKED FOR SAFETY AND ORAL CARE COMPLETED.
[2025-03-14] VITALS (73 sets, daily range): BP systolic 82–147; BP diastolic 55–86
[2025-03-14 03:28] LABS: BASOPHILS ABSOLUTE AUTO 0.04 K/mm3 (0.00-0.23); BASOPHILS PERCENT AUTO 1 % (0-2); EOSINOPHILS ABSOLUTE AUTO 0.06 K/mm3 (0.00-0.68); EOSINOPHILS PERCENT AUTO 1 % (0-6); Hematocrit 28.7 % (37.0-53.0); Hemoglobin 9.4 g/dL (13.5-17.5); IMMATURE GRAN ABSOLUTE AUTO 0.12 K/mm3 (0.00-0.10); IMMATURE GRAN PERCENT AUTO 2 % (0-1); LYMPHOCYTES ABSOLUTE AUTO 0.37 K/mm3 (0.84-5.20); LYMPHOCYTES PERCENT AUTO 5 % (21-46); MONOCYTES ABSOLUTE AUTO 0.90 K/mm3 (0.16-1.47); MONOCYTES PERCENT AUTO 11 % (4-13); Mean Corpuscular HGB Conc 32.8 g/dL (31.5-36.5); Mean Corpuscular Volume 95 fL (80-100); NEUTROPHILS ABSOLUTE AUTO 6.58 K/mm3 (1.96-9.15); NEUTROPHILS PERCENT AUTO 82 % (41-73); NRBC ABSOLUTE 0.00 K/mm3 (0.00-0.02); NRBC Auto 0.0 /100 WBC (0.0-0.2); Platelet Count 123 K/mm3 (150-400); RDW Coefficient Variation 16.7 % (11.7-14.2); RDW Standard Deviation 58.8 fL (35.1-46.3)
[2025-03-14 03:46] LABS: Albumin, Blood 2.2 g/dL (3.4-5.0); Anion Gap 10 mmol/L (3-11); Blood Urea Nitrogen 52 mg/dL (8-24); CO2, Blood 31 mmol/L (21-32); Calcium, Blood 8.9 mg/dL (8.5-10.1); Chloride, Blood 91 mmol/L (98-108); Creatinine, Blood 3.62 mg/dL (0.60-1.20); Glucose, Blood 171 mg/dL (70-99); Magnesium, Blood 2.3 mg/dL (1.6-2.4); Phosphorus, Blood 5.0 mg/dL (2.5-4.9); Potassium, Blood 4.4 mmol/L (3.5-5.5); Sodium, Blood 128 mmol/L (136-145); Vancomycin, Random 25.9 ug/mL
--- NOTE | 2025-03-14 06:35 | NUR ---
SHIFT SUMM: PT REMAINS INTUBATED AND PRECEDEX INFUSING AT 0.8 MCG/KG/HR. PT ALSO HAS TUBE FEEDINGS STILL INFUSING THROUGH PATENT OG TUBE. INTUBATION SETTINGS REMAIN THE SAME. Q SHIFT BLADDER SCAN COMPLETE. PATENT LIJ.PT REMAINS IN BUE SOFT RESTRAINTS. PT WAS GIVEN BED BATH AND CHG BATH TO IJ. SBP'S IN 100'S AND HR IN 70-80'S. MAINTAINING SATS ABOVE 96%. PT WAS GIVEN PRN FENTANYL FOR TUBE DISCOMFORT THIS SHIFT. PT HAS BED LOW AND LOCKED FOR SAFETY.
--- NOTE | 2025-03-14 09:57 | NUR ---
ASSUMPTION OF CARE... ASSUMED CARE OF PATIENT AT APPROX 0700. PATIENT INTUBATED AND SEDATED. RASS -1. VENT SETTINGS SPONTANEOUS 7/8 40% FIO2. SPO2 >94%. HR SINUS IN THE 70S-80S. BP STABLE WITH MAPS >65. OGT PATENT WITH TF RUNNING AT 40ML/HR. LEFT IJ INFUSING PRECEDEX PER EMAR. SEE FLOWSHEET FOR TITRATIONS. FISTULA TO MELO.
[2025-03-14] MEDS ORDERED: Lidocaine 2% Jelly Uro-Jet UR ONE (16:55)
[2025-03-14] MEDS ORDERED: NS 250 ML IV ONE (18:27)
[2025-03-14] MEDS ORDERED: NS 1,000 ML IV ONE ×2 (18:27→18:29)
[2025-03-14] MEDS ORDERED: Heparin Sodium 1000 Units/ML 10ML MDV ONE ×2 (18:27→18:29)
[2025-03-14] MEDS ORDERED: Verapamil HCL 2.5 MG/ML 2ML Injection ONE (18:27)
[2025-03-14] MEDS ORDERED: Nitroglycerin 2 MG/20 ML BTL ONE (18:27)
[2025-03-14] MEDS ORDERED: Phenylephrine HCl 100 MCG/ML-NS 10MLSYR (1MG/10ML) ONE (18:29)
[2025-03-14] MEDS ORDERED: FentaNYL Citrate 50 MCG/ML 2 ML Injection ONE (18:38)
[2025-03-14] MEDS ORDERED: Midazolam HCl 1MG / ML 2ML Vial ONE (18:39)
--- NOTE | 2025-03-14 18:51 | NUR ---
DAY SHIFT SUMMARY PT HAD DIALYSIS THIS SHIFT W 2.5L FLUID REMOVED. AFTER DIALYSIS PT WAS EXTUBATED JUST BEFORE 1500 AND PLACED ON BIPAP. PT TOLERATING BIPAP W SHORT BREAKS ONLY REQUIRING 2L OXYMASK SO HE COULD COMMUNICATE W STAFF AND COUGH UP LARGE AMOUNTS OF THICK WHITE FLEM. AROUND 1630 THIS RN WAS ASSISTING THE PT ON THE BEDPAN WHEN HE BEGAN COMPLAINING OF LEFT ARM. AT THE SAME TIME HIS MONITOR SHOWED ST ELEVATION. MULTIPLE EKG'S PERFORMED SHOWING INFERIOR INFARCTN SO DR. LERMA CALLED AND HE CAME TO BEDSIDE. PT EXPRESSING TO STAFF AND DR. LERMA THAT HE WISHES TO BE A DNI. DR. ARIZMENDI NOTIFIED OF PT'S DNI WISHES AND CODE STATUS CHANGED PER DR. ARIZMENDI. DR. LERMA SPOKE TO THE PT ABOUT GOING FOR ANGIOGRAM AND HE AGREED. 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
--- NOTE | 2025-03-14 22:38 | NUR ---
ASSUMPTION OF CARE/PT UPDATE PT ARRIVED TO ICU AT 2011 FROM [facility] DIV[facility] DIRECTOR, NO INTERVENTIONS WERE MADE. PT HAS RIGHT GROIN ACCESS, CHG IN PLACE WITH NO SIGNS OF HEMATOMA OR BLEEDING. GOOD PULSES AND SENSATION BILATERALLY. PT IS TO LAY FLAT FOR [address] POOLE. PT IS A&0 X4 AND IS ABLE TO MAKE NEEDS KNOWN AND CAN MOVE EXTREMITIES EQUALLY AND BILATERALLY. CONTINUOUS CARDIAC MONIOTRING IN PLACE SHOWING SINUS RHYTHM, MAP >65. PT IS ON BIPAP 14/8/50% WITH SP02 >92%. SHAIKH IS IN PLACE BUT WITH NO URINE OUPUT. FLUSHED THE SHAIKH AND STILL HAD NO OUTPUT, PT REPORTED THAT IT WAS PAINFUL WHILE FLUSHING THE SHAIKH. CALLED DR. ARIZMENDI AND IS MADE AWARE OF THE SHAIKH BUT IS STILL WANTING TO LEAVE SHAIKH IN PLACE. PT IS VERY EDEMATOUS THROUGHOUT. CENTRAL LINE IS IN PLACE TO LIJ. PRECEDEX IS INFUSING AT 0.4 MCG/KG/HR, SEE FLOW SHEET FOR TITRATIONS. TALKED WITH PT TO CLARIFY CODE STATUS, PT STATES HE WANTS TO BE DNI INSTEAD OF FULL CODE. EDUCATED PT AND FAMILY ABOUT WHAT IT MEANS TO BE DNI. FAMILY AGREES TO RESPECT THE PT'S WISHES TO BE DNI. CALLED HOSPITALISTJOSE TO UPDATE REGARDING PT'S CODE.
[2025-03-15] VITALS (77 sets, daily range): BP systolic 48–154; BP diastolic 18–95
[2025-03-15 01:31] LABS: Hematocrit 27.2 % (37.0-53.0); Hemoglobin 8.8 g/dL (13.5-17.5)
--- NOTE | 2025-03-15 01:57 | NUR ---
update: CALL PLACED TO DR. PATEL REGARDING SIGNIFICANT +4 EDEMA IN RIGHT UPPER LEG, NOTED TO INCREASE T/O THE SHIFT. RIGHT FOOT ALSO COOL TO THE TOUCH WITH ONLY INTERMITTENT PEDAL PULSES FOUND WITH DOPPLER. PT DOES HAVE TIBIAL PULSES HEARD WITH DOPPLER. PT STATES HE STILL HAS GOOD SENSATION IN RIGHT FOOT, RIGHT GROIN SITE SHOWS MINIMAL SIGNS OF OOZING BUT IS SOFT TO THE TOUCH. ORDERS GIVEN TO DRAW STAT H&H AND STAT CTA OF RIGHT LEG. PT TAKEN TO CT BY BED WITH ICU NURSES. PT TOLERATED WELL. VITAL SIGNS HAVE REMAINED STABLE T/O THE SHIFT WITH NO OTHER SIGNIFICANT CHANGES IN PT CONDITION.
[2025-03-15] MEDS ORDERED: Albuterol 2.5 MG/3 ML VIAL INH PRN (03:10)
[2025-03-15 04:23] LABS: BASOPHILS ABSOLUTE AUTO 0.03 K/mm3 (0.00-0.23); BASOPHILS PERCENT AUTO 0 % (0-2); EOSINOPHILS ABSOLUTE AUTO 0.08 K/mm3 (0.00-0.68); EOSINOPHILS PERCENT AUTO 1 % (0-6); Hematocrit 27.6 % (37.0-53.0); Hemoglobin 8.9 g/dL (13.5-17.5); IMMATURE GRAN ABSOLUTE AUTO 0.13 K/mm3 (0.00-0.10); IMMATURE GRAN PERCENT AUTO 2 % (0-1); LYMPHOCYTES ABSOLUTE AUTO 0.41 K/mm3 (0.84-5.20); LYMPHOCYTES PERCENT AUTO 5 % (21-46); MONOCYTES ABSOLUTE AUTO 0.82 K/mm3 (0.16-1.47); MONOCYTES PERCENT AUTO 10 % (4-13); Mean Corpuscular HGB Conc 32.2 g/dL (31.5-36.5); Mean Corpuscular Volume 96 fL (80-100); NEUTROPHILS ABSOLUTE AUTO 7.01 K/mm3 (1.96-9.15); NEUTROPHILS PERCENT AUTO 83 % (41-73); NRBC ABSOLUTE 0.00 K/mm3 (0.00-0.02); NRBC Auto 0.0 /100 WBC (0.0-0.2); Platelet Count 120 K/mm3 (150-400); RDW Coefficient Variation 16.7 % (11.7-14.2); RDW Standard Deviation 59.2 fL (35.1-46.3)
[2025-03-15 04:48] LABS: Albumin, Blood 2.2 g/dL (3.4-5.0); Anion Gap 9 mmol/L (3-11); Blood Urea Nitrogen 46 mg/dL (8-24); CO2, Blood 33 mmol/L (21-32); Calcium, Blood 9.3 mg/dL (8.5-10.1); Chloride, Blood 93 mmol/L (98-108); Creatinine, Blood 3.44 mg/dL (0.60-1.20); Glucose, Blood 139 mg/dL (70-99); Magnesium, Blood 2.4 mg/dL (1.6-2.4); Phosphorus, Blood 4.7 mg/dL (2.5-4.9); Potassium, Blood 3.9 mmol/L (3.5-5.5); Sodium, Blood 131 mmol/L (136-145); Vancomycin, Random 21.5 ug/mL
[2025-03-15 04:50] LABS: pH Blood Arterial 7.53 (7.35-7.45)
--- NOTE | 2025-03-15 06:44 | NUR ---
END OF SHIFT SUMMARY PT IS A&0 X4, ABLE TO MAKE NEEDS KNOWN AND CAN MOVE EXTREMITIES EQUALLY AND BIALTERALLY. CONTINUOUS CARDIAC MONITORING IS IN PLACE SHOWING SINUS RTHYHM, MAP >65. PT HAS RIGHT GROIN SITE FROM SWEET POTATO DISINTEGRATOR, SITE HAS SOME SLIGHT OOZING AND RIGHT LEG IS SIGNIFICANTLY MORE SWOLLEN THAN AT THE START OF SHIFT AND SMALL HEMATOMA ABOVE THE SITE, DR. POOLE IS AWARE. PLAN FOR ABD CT THIS AM. PULSES ARE FOUND WITH A DOPPLER AT TIMES. PT DENIED ANY CP, BUT DID C/O LEG PAIN, MEDICATED PER EMAR. PT IS ON BIPAP AT 16/8/50% WITH SP02 >92%. SHAIKH IS IN PLACE WITH NO OUTPUT ALL SHIFT. PRECEDEX IS ON SB. [facility]EN[facility]. WILL REPORT TO ONCOMING SHIFT.
--- NOTE | 2025-03-15 09:21 | NUR ---
ASSUMPTION OF CARE... ASSUMED CARE OF PATIENT AT APPROX 0700. PATIENT A&0X4 AND ABLE TO MAKE NEEDS KNOWN. RASS 0. HR SINUS IN THE 80S-90S. BP STABLE WITH MAPS >65. PATIENT ON 2LO2 VIA OXY MASK WITH SPO2 >94%. SHAIKH CATHETER PATENT WITH NO URINE OUTPUT. PATIENT HAVING LOOSE STOOLS THIS AM. THIS RN AND AGATA Tavares TRANSPORTED PATIENT TO CT WITH RT CONTRERAS. PATIENT COMPLAINED OF BACK PAIN AND WAS MEDICATED WITH FENTANYL PER EMAR. AT APPROX 0900 PATIENT HAD A RECTAL TUBE INSERTED AND THE SHAIKH WAS REMOVED PER DR. ARIZMENDI. PATIENT IS CURRENTLY GETTING DIALYSIS IN THE ROOM.
--- NOTE | 2025-03-15 14:00 | NUR ---
UPDATE PT HAVING TWO EPISODES APPROX 3 HOURS APART WHERE HE SUDDENLY HAD DECREASED LOC, BECAME HYPOTENSIVE AND VOMITTED. THESE EPISODES WERE BOTH WITNESSED BY THIS RN AT BEDSIDE AND HIS SYMPTOMS RESOLVING EACH TIME AFTER THE EMSIS. PROVIDER AWARE OF THESE EPISODES.
--- NOTE | 2025-03-15 16:48 | NUR ---
SHIFT SUMMARY... PATIENT A&OX4 AND ABLE TO MAKE NEEDS KNOWN. PATIENT IS ABLE TO FOLLOW DIRECTIONS AND HELP ROLL HIMSELF WITH ASSISTANCE. HR SINUS/SINUS TACH IN THE 80S-100S. BP STABLE WITH MAPS >65. SPO2 >94% ON 2LO2 VIA OXY MASK. RECTAL TUBE PATENT AND DRAINING BROWN STOOL TO GRAVITY. PATIENT CONTINUES TO BE ANURIC. PATEINT HAS A FISTULA TO THE MELO AND HAD DIALYSIS TODAY. PATIENT WAS TURNED HARD TO THE LEFT AND RIGHT WHILE IN BED AND GOT UP TO THE CHAIR WITH THE CEILING LIFT. PATIENT WORKED WITH SPEECH THERAPY AND IS TO REMAIN NPO ASIDE FROM CRUSHED PILLS WITH APPLESAUCE. PATIENT WAS ALSO CHANGED BACK TO A FULL CODE THIS SHIFT AFTER HIS CONVERSATION WITH DR. ARIZMENDI. SISTER CAL WAS CALLED AND UPDATED ON PLAN OF CARE.
[2025-03-15] MEDS ORDERED: DiphenhydrAMINE HCl 50 MG/ML 1ML Vial IV PRN (18:20)
--- NOTE | 2025-03-15 19:24 | NUR ---
ASSUMPTION OF CARE ASSUMED CARE OF PT AT 1900 WITH PROSPER OLGUIN, RECIEVED REPORT FROM AIRAM OLGUIN. PT IS A&0 X4, ABLE TO MAKE NEEDS KNOWN AND CAN MOVE EXTREMITIES EQUALLY AND BILATERALLY. CONINTUOUS CARDIAC MONITORING IN PLACE, MAP >65. LEVOPHED IS INFUSING AT 3 MCG/MIN. PT IS ON 2L VIA OXIMIZER MASK WITH SP02 >92%. RECTAL TUBE IS IN PLACE. CARE CONTINUES.
[2025-03-16] VITALS (48 sets, daily range): BP systolic 91–133; BP diastolic 48–88
[2025-03-16] MEDS ORDERED: Vancomycin HCL 250 MG/5 ML 5ML Oral Syringe PO SCH
[2025-03-16 03:45] LABS: BASOPHILS ABSOLUTE AUTO 0.05 K/mm3 (0.00-0.23); BASOPHILS PERCENT AUTO 1 % (0-2); EOSINOPHILS ABSOLUTE AUTO 0.05 K/mm3 (0.00-0.68); EOSINOPHILS PERCENT AUTO 1 % (0-6); Hematocrit 26.7 % (37.0-53.0); Hemoglobin 8.5 g/dL (13.5-17.5); IMMATURE GRAN ABSOLUTE AUTO 0.16 K/mm3 (0.00-0.10); IMMATURE GRAN PERCENT AUTO 2 % (0-1); LYMPHOCYTES ABSOLUTE AUTO 0.47 K/mm3 (0.84-5.20); LYMPHOCYTES PERCENT AUTO 5 % (21-46); MONOCYTES ABSOLUTE AUTO 0.83 K/mm3 (0.16-1.47); MONOCYTES PERCENT AUTO 10 % (4-13); Mean Corpuscular HGB Conc 31.8 g/dL (31.5-36.5); Mean Corpuscular Volume 96 fL (80-100); NEUTROPHILS ABSOLUTE AUTO 7.07 K/mm3 (1.96-9.15); NEUTROPHILS PERCENT AUTO 82 % (41-73); NRBC ABSOLUTE 0.00 K/mm3 (0.00-0.02); NRBC Auto 0.0 /100 WBC (0.0-0.2); Platelet Count 163 K/mm3 (150-400); RDW Coefficient Variation 16.7 % (11.7-14.2); RDW Standard Deviation 58.4 fL (35.1-46.3)
[2025-03-16 04:10] LABS: Albumin, Blood 2.7 g/dL (3.4-5.0); Anion Gap 11 mmol/L (3-11); Blood Urea Nitrogen 38 mg/dL (8-24); CO2, Blood 32 mmol/L (21-32); Calcium, Blood 9.4 mg/dL (8.5-10.1); Chloride, Blood 95 mmol/L (98-108); Creatinine, Blood 3.12 mg/dL (0.60-1.20); Glucose, Blood 88 mg/dL (70-99); Magnesium, Blood 2.4 mg/dL (1.6-2.4); Phosphorus, Blood 5.0 mg/dL (2.5-4.9); Potassium, Blood 3.8 mmol/L (3.5-5.5); Sodium, Blood 134 mmol/L (136-145); Vancomycin, Random 27.5 ug/mL
--- NOTE | 2025-03-16 05:53 | NUR ---
END OF SHIFT SUMMARY PT IS A&0 X4, ABLE TO MAKE NEEDS KNOWN AND CAN MOVE EXTREMITIES EQUALLY AND BILATERALLY. PT REPORTS FREQUENT PAIN, REPOSITIONED PT AND MEDICATED PER EMAR. CONTINUOUS CARDIAC MONITORING IN PLACE SHOWING SINUS RHYTHM, LEVOPHED ON SB, MAP >65. R GROIN SITE FROM [employer] G[employer]ERER PROCEDURE IS C/D/I, NO SIGNS OF HEMATOMA OR BLEEDING. PT IS ON 4L VIA OXYMIZER MASK WITH SP02 >92%. BIPAP WAS AT BEDSIDE BUT PT REFUSED TO WEAR IT. PT HAS NOT URINATED FOR THIS SHIFT. DID BLADDER SCAN PT AND ONLY SHOWED [address] CENTRAL LINE IN PLACE TO [facility]. BED IN LOWEST POSITION, CALL LIGHT IN REACH, WILL REPORT TO ONCOMING SHIFT.
--- NOTE | 2025-03-16 08:00 | NUR ---
ASSUMPTION OF CARE RECEIVED REPORT FROM NOC NURSE. PT IS ALERT, ANSWERS QUESTIONS, AND FOLLOWS COMMANDS. PER NOC NURSE, PT HAS EPISODES OF CONFUSION. NO EPISODES OF CONFUSION NOTED AT THIS TIME. PT IS ON 4L OXYMIZER MASK WITH SPO2> 92%. LUNG SOUNDS COARSE T/O. PT DENIES SOB. PT IN NSR, HR IN 90S, MAP >65. PT DENIES ABD PAIN. MILD DISTENTION NOTED IN ABD. PT HAS GENERALIZED EDEMA WITH 2+ EDEMA IN EXTREMITIES, PENIS/SCROTUM, AND MORE EDEMA NOTED IN RLL IN COMPARISION TO LLL. FISTULA WNL, BRUIT/THRILL NOTED. PT HAS ANURIA, BLADDER SCAN INACCURATE D/T ASCITES. CALL LIGHT WITHIN REACH AND NO NEEDS EXPRESSED AT THIS TIME.
[2025-03-16] MEDS ORDERED: FentaNYL Citrate 50 MCG/ML 2 ML Injection IV PRN (10:40)
[2025-03-16] MEDS ORDERED: HYDROcodone 5-APAP 325 TAB PO PRN (10:45)
--- NOTE | 2025-03-16 11:39 | NUR ---
Spiritual Care Visit. Pt. is awake in his room and welcomes my visit. Pt. displayed evidence of being uncomfortable but is generally pleasant. Facilitate a life review and consider matters of dhara and belief. Pt. displays evidence of being aware and engaged. Pt. welcomed prayer. Prayed for the Pt. Pt. verbalized gratitude for the spiritual care visit.
--- NOTE | 2025-03-16 17:46 | NUR ---
SHIFT SUMMARY PT ALERT, ANSWERS QUESTIONS, AND FOLLOWS COMMANDS. PT IS ABLE TO USE CALL LIGHT BUT IS UNCOOPERATIVE WITH INSTRUCTIONS AND PLAN OF CARE. PT REFUSED PT/OT AND REPOSITIONING IN THE AFTERNOON. PT ATE <10% OF LUNCH AND REFUSED ALL OF HIS DINNER. PT IS ON 4L NC, ABLE TO TITRATE DOWN TO 2L WHEN MORE AWAKE. DIFFICULT TO OBTAIN AN ACCURATE SPO2 READ D/T PERFUSION AND PT MOVING. AN ACCURATE READ WILL BE >92%, WILL INACCURATELY READ INTO 80S BUT PT EXHIBITS NO SX OF RESPIRATORY DISTRESS DURING THESE READINGS. LUNG SOUNDS COARSE T/O. PT DENIES SOB AND CHEST PAIN T/O THE DAY. DR LERMA SIGNED OFF OF PT CASE. PT IN NSR, HR IN 90S, AND MAP >65. PT HAS GENERALIZED AND DEPENDENT EDEMA, IN BLE AND SCROTUM. PT HAS SCATTERED BRUISING AND SCABS T/O. PT HAS CALL LIGHT WITHIN REACH, HAS SHOWN UNDERSTANDING HOW TO USE THE CALL LIGHT, AND NO NEEDS EXPRESSED AT THIS TIME.
--- NOTE | 2025-03-16 19:00 | NUR ---
ASSUMED CARE ASSUMED CARE OF PATIENT. AWAKE AND ALERT. ORIENTED TO SELF ONLY AT THIS TIME. PT THINKS HE IS AT HOME. REORIENTS EASILY. MOVES ALL EXTREMITITES. FOLLOWS COMMANDS. PT IS IRRITABLE AND STATES THAT HE JUST WANTS TO BE LEFT ALONE. COOPERATIVE WITH MOST CARE, BUT DOES TAKE OFF O2 AND BIOX PROBE. MONITOR SHOWS NSR, RATE 90s. CONTINUES TO HAVE SOME ST ELEVATION. BP WNL. AFEBRILE. PT IS ANURIC AT THIS TIME. SEE SHIFT ASSESSMENT FOR FULL ASSESSMENT.
--- NOTE | 2025-03-16 22:45 | NUR ---
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 O2 SATS 83% ON RA UPON ARRIVAL. PT WITH SNORING RESPIRATIONS. PLACED ON 4L NC AND HOB INCREASED- SATS INCREASED TO >90% WITH THIS. PT ROUSES TO VERBAL STIMULI BUT QUICKLY FALLS BACK TO SLEEP. LEFT LOWER LEG WITH DRSG/WRAP C/D/I AT THIS TIME. BP STABLE. HR 90s, NSR WITH FREQUENT PVCs AND OCCASIONAL TRIGEMINY. AFEBRILE. COLOR PALE, SKIN IS COOL AND CLAMMY. SEE ADMIT ASSESSMENT FOR FULL ASSESSMENT.
[2025-03-17] VITALS (30 sets, daily range): BP systolic 84–154; BP diastolic 45–92
--- NOTE | 2025-03-17 00:58 | NUR ---
DECREASED HgB HgB RESULT IS 6.9. NO APPARENT BLEEDING NOTED AT SURGICAL SITE. DR SINGER NOTIFIED- NEW ORDER GIVEN TO TRANSFUSE 1 UNIT PRBCs AT THIS TIME.
[2025-03-17 04:22] LABS: BASOPHILS ABSOLUTE AUTO 0.07 K/mm3 (0.00-0.23); BASOPHILS PERCENT AUTO 1 % (0-2); EOSINOPHILS ABSOLUTE AUTO 0.04 K/mm3 (0.00-0.68); EOSINOPHILS PERCENT AUTO 0 % (0-6); Hematocrit 28.7 % (37.0-53.0); Hemoglobin 8.9 g/dL (13.5-17.5); IMMATURE GRAN ABSOLUTE AUTO 0.10 K/mm3 (0.00-0.10); IMMATURE GRAN PERCENT AUTO 1 % (0-1); LYMPHOCYTES ABSOLUTE AUTO 0.59 K/mm3 (0.84-5.20); LYMPHOCYTES PERCENT AUTO 6 % (21-46); MONOCYTES ABSOLUTE AUTO 0.93 K/mm3 (0.16-1.47); MONOCYTES PERCENT AUTO 10 % (4-13); Mean Corpuscular HGB Conc 31.0 g/dL (31.5-36.5); Mean Corpuscular Volume 100 fL (80-100); NEUTROPHILS ABSOLUTE AUTO 7.61 K/mm3 (1.96-9.15); NEUTROPHILS PERCENT AUTO 82 % (41-73); NRBC ABSOLUTE 0.00 K/mm3 (0.00-0.02); NRBC Auto 0.0 /100 WBC (0.0-0.2); Platelet Count 226 K/mm3 (150-400); RDW Coefficient Variation 17.0 % (11.7-14.2); RDW Standard Deviation 62.0 fL (35.1-46.3)
[2025-03-17 04:48] LABS: Magnesium, Blood 2.6 mg/dL (1.6-2.4); Vancomycin, Random 26.5 ug/mL
--- NOTE | 2025-03-17 06:00 | NUR ---
SHIFT SUMMARY NO ACUTE CHANGES. PT SLEPT VERY MINIMALLY DURING NOC. CONTINUES TO BE CONFUSED AND DISORIENTED. ORIENTED TO SELF ONLY. OCCASIONALLY REMEMBERS THAT HE IS IN THE HOSPITAL, BUT OTHER TIMES THINKS THAT HE IS AT HOME. PT IS FORGETFUL AND FREQUENTLY PULLS OFF OXYGEN AND BIOX PROBE. PT HAS PULLED OFF CENTRAL LINE DRSG TWICE DURING SHIFT. BILATERAL SOFT MITTS IN PLACE TO PREVENT PULLING AT TUBES/EQUIPMENT. INCONTINENT OF LOOSE BROWN STOOL X 1. NO URINE OUTPUT. VSS. AFEBRILE. REMAINS ON 4L NC. RESPIRATIONS EVEN AND UNLABORED. WILL REPORT TO ONCOMING RN WHEN AVAILABLE.
--- NOTE | 2025-03-17 08:01 | NUR ---
ASSUMPTION OF CARE ASSUMED CARE OF PATIENT AT APPROX 0700. PT APPEARS TO BE SLEEPING, WAKES EASILY TO VERBAL STIMULI, ALERT, ORIENTED TO SELF ONLY, STATES Jun UNSURE OF WHERE OR WHY; PT DEMANDING TO BE DISCHARGED TODAY, AT BEDSIDE, EDUCATED PT ON PLAN OF CARE AND DISCHARGE PROCESS. PLANS FOR DIALYSIS THIS AM AT BEDSIDE AT 0930 PER ORDER. PT REPORTS BACK PAIN, REPOSITIONED. PT DENIES CHEST PAIN/PRESSURE, SOB, NAUSEA, AND DIZZINESS. PT REPORTS NUMB/TINGLING TO BOTTOM OF BOTH FEET. TELE SINUS 90'S, BP ELEVATED PRIOR TO DIALYSIS 140'S SBP, MAP >65. EDEMA NOTED TO BLE. SPO2 >90% ON 4-5L O2 VIA NC. ABD SOFT, NONTENDER, HYPOACTIVE BT NOTED T/O. REPORTS OF LOOSE STOOL ON PREVIOSU SHIFT. OTHER VSS. CALL LIGHT WITHIN REACH.
[2025-03-17] MEDS ORDERED: Lactobacil 2-S.Thermo-Bifido 1 1 Cap PO SCH (09:00)
--- NOTE | 2025-03-17 16:54 | NUR ---
TRANSFER UPDATE REPORT RECIEVED FROM ICU NURSE AT 1510. PT ARRIVED TO PCU AT 1640 VIA HOSPITAL BED AND ON 5L NC. PT SLID FROM ICU BED TO PCU BED VIA SLIDE SHEET AND 3 STAFF MEMBERS. PT ORIENTED TO SELF ONLY. PT DENIES CHEST PAIN/PRESURE AT THIS TIME. PT DENIES THAT HE WAS CODED AND IN ICU. PT REORIENTED THAT HE IS CURRENTLY IN [facility]. PT ROLLED FROM SIDED TO SIDE WITH ASSISTANCE TO REMOVE OLD BEDDING. PT NOTED TO HAVE SOME STOOL ON CHU PAD AND ON HIMSELF. SUPERVISOR MACHINE SETTER TOLD PT THAT SHE WAS GOING TO CLEAN HIM UP WHILE HE WAS ON HIS SIDE. PT TOLD RN THAT HE DID NOT WANT HER TO WIPE HIM DUE TO PAIN. THIS RN INFORMED PT THAT HIS SKIN WOULD BECOME MORE IRRITATED IF HE IS NOT CLEANED UP. PT CONTINUED TO REFUSE TO BE WIPED. THIS RN TOLD PT THAT HE NEEDED TO BE CLEANED UP AND THAT STAFF WOULD BE VERY GENTLE. PT AGREED TO BRIEF CLEANING. THIS RN ORIENTED PT TO ROOM AND CALL LIGHT. PT INSTRUCTED TO USE CALL LIGHT IF HE NEEDED ANY ASSISTANCE. AFTER THIS RN EXITED ROOM, PT HEARD YELLING OUT FOR STAFF. THIS RN BACK TO ROOM. PT ASKED THIS RN TO PROVIDE THE ROOM PHONE AND DIAL A NUMBER FOR HIM. THIS RN PROVIDED PHONE AND DIALED NUMBER. AFTER PT WAS DONE WITH HIS PHONE CALL, PT AGAIN HEARD YELLING OUT. THIS RN INFORMED PT THAT HE DID NOT NEED TO YELL AND THAT HE COULD USE CALL LIGHT. PT CONTINUES TO YELL OUT.
--- NOTE | 2025-03-17 16:57 | NUR ---
TRANSFER NOTE PT HAD DIALYSIS AT BEDSIDE THIS AM, APPEARED TO HAVE TOLERATED IT WELL, BP AFTER DIALYSIS 130/86. PT CONTINUES TO BE ORIENTED TO SELF ONLY, DEMANDING THAT HE LEAVES TODAY OR TOMORROW. PT YELLING AND GROWLING AT THIS RN, EDUCATED PATIENT ON BEHAVIORS THAT ARE NOTE TOLERATED. FOLLOW COMMANDS BUT QUICKTLY FORGETS. SPO2 >90% ON 2L O2 VIA NC, PT CONSTANTLY REMOVING. LEFT IJ REMOVED, SMALL AMOUNT OF OOZING NOTED. POWER GLIDE PLACED TO JB. WHEN CHECKING BP ON LEFT FOREARM, PT HYPOTENSIVE, DISCUSSED WITH DR ARIZMENDI, RECHECKED BP ON UPPER ARM AND IT WAS WNL, CONTINUE WITH TRANSFER TO PCU. REPORT GIVEN TO RN ASSUMING CARE OF PATIENT. PT TRANSFERED AT APPROX 1635.
[2025-03-17] MEDS ORDERED: CefTRIAXone Sodium 1,000 MG in NS 100 ML IV SCH (17:00)
--- NOTE | 2025-03-17 18:35 | NUR ---
SHIFT SUMMARY PT REMAINS A/O X 1, DOES NOT COOPERATE WITH VITALS OR ORAL MEDICATIONS. SINUS TACH LOW 100s. SATS MAINTAINED >90% WHEN WEARING 3L NC. PATIENT INITIALLY REFUSED NC, SATS DROPPED TO 70-80s. PATIENT DID AGREE TO WEAR IT IF THIS RN CALLED HIS SISTER AND IS ACTIVELY WEARING IT NOW. POWERGLIDE TO LEFT UPPER ARM, ROCEPHIN INFUSING. FISTULA TO RIGHT ARM. BLOOD PRESSURE OBTAINED FROM RIGHT LEG, MAP >65.
[2025-03-18 03:15] VITALS: BP 101/42
[2025-03-18 03:58] LABS: BASOPHILS ABSOLUTE AUTO 0.08 K/mm3 (0.00-0.23); BASOPHILS PERCENT AUTO 1 % (0-2); EOSINOPHILS ABSOLUTE AUTO 0.08 K/mm3 (0.00-0.68); EOSINOPHILS PERCENT AUTO 1 % (0-6); Hematocrit 30.0 % (37.0-53.0); Hemoglobin 9.3 g/dL (13.5-17.5); IMMATURE GRAN ABSOLUTE AUTO 0.11 K/mm3 (0.00-0.10); IMMATURE GRAN PERCENT AUTO 1 % (0-1); LYMPHOCYTES ABSOLUTE AUTO 0.65 K/mm3 (0.84-5.20); LYMPHOCYTES PERCENT AUTO 6 % (21-46); MONOCYTES ABSOLUTE AUTO 1.35 K/mm3 (0.16-1.47); MONOCYTES PERCENT AUTO 12 % (4-13); Mean Corpuscular HGB Conc 31.0 g/dL (31.5-36.5); Mean Corpuscular Volume 101 fL (80-100); NEUTROPHILS ABSOLUTE AUTO 9.36 K/mm3 (1.96-9.15); NEUTROPHILS PERCENT AUTO 81 % (41-73); NRBC ABSOLUTE 0.00 K/mm3 (0.00-0.02); NRBC Auto 0.0 /100 WBC (0.0-0.2); Platelet Count 368 K/mm3 (150-400); RDW Coefficient Variation 17.3 % (11.7-14.2); RDW Standard Deviation 64.0 fL (35.1-46.3)
[2025-03-18 04:24] LABS: Magnesium, Blood 2.4 mg/dL (1.6-2.4)
[2025-03-18 04:26] LABS: Albumin, Blood 2.8 g/dL (3.4-5.0); Anion Gap 12 mmol/L (3-11); Blood Urea Nitrogen 32 mg/dL (8-24); CO2, Blood 30 mmol/L (21-32); Calcium, Blood 9.8 mg/dL (8.5-10.1); Chloride, Blood 99 mmol/L (98-108); Creatinine, Blood 3.11 mg/dL (0.60-1.20); Glucose, Blood 106 mg/dL (70-99); Phosphorus, Blood 4.8 mg/dL (2.5-4.9); Potassium, Blood 4.0 mmol/L (3.5-5.5); Sodium, Blood 137 mmol/L (136-145); Vancomycin, Random 21.2 ug/mL
--- NOTE | 2025-03-18 04:58 | NUR ---
SHIFT SUMMARY PT A&O TO SELF, CALLS OUT AND REFUSES CARE. BP SOFT WITH MAP> 60, ASYMTOMATIC, DENIES CP/PRESSURE. SINUS w/ BBB 100's. SpO2> 92% 4L VIA NC, DENIES SOB, FREQUENTLY TAKING OXYGEN OFF. REMAINED BEDREST D/T MENTATION AND WEAKNESS. MANAGED PAIN PER EMAR. PT DID NOT SLEEP AT ALL THROUGHOUT SHIFT AND BECAME INCREASINGLY RESTLESS/CONFUSED. NO STOOL THIS SHIFT. Q2 TURNS PROVIDED WHEN PT ALLOWED. NO OTHER EVENTS, WILL REPORT TO ONCOMING RN.
--- NOTE | 2025-03-18 11:38 | NUR ---
"Spiritual care | Nurse Request Pt. is in bed when this credit reporting clerk comes to bedside. Pt. displays evidence of regular gutteral scream, but cannot verbalize if it comes from a pain source. Pt. diplayed evidence of lower anxiety when we considered matters of his family. Prayed for the Pt. will remain available to the Pt. and his staff."
[2025-03-18 12:02] VITALS: BP 121/42
--- NOTE | 2025-03-18 12:09 | NUR ---
UPDATE PATIENT SEEN BY PALLIATIVE AND MD WITH SISTER AT BEDSIDE. DISCUSSED CODE STATUS AND HOSPICE. PT CHANGED TO DNR AND SISTER AGREEABLE TO HOSPICE. DNR PLACED TO RIGHT WRIST PER ODER.
--- NOTE | 2025-03-18 14:47 | NUR ---
MET WITH JAMES AND HIS SISTER CAL [place]. DISCUSSED GOALS OF CARE, PROVIDER AND BSRN PRESENT DURING THIS CONVERSATION. CAL EXPRESSED THAT SHE QUETA WOULD NOT DO WELL IF CPR WERE PREFORMED AGAIN, HE HAS HAD A MAJOR DELINE SINCE HIS RECENT CARDIAC EVENT. WE DISCUSSED HOSPICE. SHE RELAYED THAT THAT WOULD BE THE BEST FOR QUETA AT THIS TIME. OFFERED TO CALL FAMILY. SPOKE ON THE PHONE WITH PATIENTS BROTHER STEPHANIE TO UPDATE ON THE DISCUSSION, HE WAS AGREEABLE TO THE PLAN OF HOSPICE. DISCUSSED WITH APPEALS BOARD REFEREE, SARAH COMPLETED, SENT TO MEDICAL RECORDS AND REGISTRY.
[2025-03-18 16:15] VITALS: BP 110/52
--- NOTE | 2025-03-18 18:44 | NUR ---
SHIFT SUMMARY PATIENT ORIENTED TO SELF ONLY. HE IS UNABLE TO MAKE NEEDS KNOWN AND IS NOT COMPLIANT WITH SOME MEDS OR VITALS. PT IN SR, HR 90-100s. PT IS ON 4L NC, SATS MAINTAINED >90s WHEN WEARING. PT FREQUENTLY REMOVES NC ADN REFUSES TO LET STAFF REAPPLY, DESATS TO 80s ON ROOM AIR. BP IS SOFT, MAP MAINTAINED >60. HAD DISCUSSION WITH PT FAMILY MEMBER, SEE PREVIOUS NOTES.
--- NOTE | 2025-03-18 19:27 | NUR ---
ASSUMPTION OF CARE ASSUMED PT'S CARE AT 1900,BEDSIDE REPORT COMPLETED.PT LYING IN BED MAKING INCOMPREHESIBLE SOUNDS.A&O TO NAME ONLY.PLAN OF CARE REVIEWED.PT DID NOT ANSWER WHEN ASKED IF HE IS IN PAIN.BED TO THE LOWEST LEVEL,BED ALARM IN USE FOR FALL PREVENTION SAFETY.MONITORING ONGOING PER CARE PLAN.NO S/S OF PAIN OR SOB NOTED.CALL LIGHT AND PT'S ITEMS WITHIN REACH.
[2025-03-18 20:27] VITALS: BP 116/76
--- NOTE | 2025-03-18 23:01 | NUR ---
TRANSFER REPORT GIVEN TO 348 NURSE AT 2242.PT TRANSFERRED VIA BED,BELONGINGS, MEDS AND CHART SENT WITH PT.
[2025-03-19 03:17] VITALS: BP 116/93
--- NOTE | 2025-03-19 06:31 | NUR ---
SHIFT SUMMARY: Pt is admitted for CHF and is a DNR. is alert to self and able to make needs known. ADLs have been 2p but did not get out of bed. Denies pain when asked. But did a fair amount of calling out and or noise making. Did ask where is dad was and stated he did not like that the staff were in his house. Power glide to right upper is patent with dressing that is CDI. on ISO for rhino virus and cdiff
[2025-03-19 06:44] LABS: BASOPHILS ABSOLUTE AUTO 0.10 K/mm3 (0.00-0.23); BASOPHILS PERCENT AUTO 1 % (0-2); EOSINOPHILS ABSOLUTE AUTO 0.06 K/mm3 (0.00-0.68); EOSINOPHILS PERCENT AUTO 0 % (0-6); Hematocrit 30.2 % (37.0-53.0); Hemoglobin 9.2 g/dL (13.5-17.5); IMMATURE GRAN ABSOLUTE AUTO 0.09 K/mm3 (0.00-0.10); IMMATURE GRAN PERCENT AUTO 1 % (0-1); LYMPHOCYTES ABSOLUTE AUTO 0.82 K/mm3 (0.84-5.20); LYMPHOCYTES PERCENT AUTO 6 % (21-46); MONOCYTES ABSOLUTE AUTO 1.37 K/mm3 (0.16-1.47); MONOCYTES PERCENT AUTO 10 % (4-13); Mean Corpuscular HGB Conc 30.5 g/dL (31.5-36.5); Mean Corpuscular Volume 101 fL (80-100); NEUTROPHILS ABSOLUTE AUTO 10.91 K/mm3 (1.96-9.15); NEUTROPHILS PERCENT AUTO 82 % (41-73); NRBC ABSOLUTE 0.00 K/mm3 (0.00-0.02); NRBC Auto 0.0 /100 WBC (0.0-0.2); Platelet Count 353 K/mm3 (150-400); RDW Coefficient Variation 17.4 % (11.7-14.2); RDW Standard Deviation 63.7 fL (35.1-46.3)
[2025-03-19 07:20] LABS: Albumin, Blood 2.8 g/dL (3.4-5.0); Anion Gap 13 mmol/L (3-11); Blood Urea Nitrogen 40 mg/dL (8-24); CO2, Blood 29 mmol/L (21-32); Calcium, Blood 9.8 mg/dL (8.5-10.1); Chloride, Blood 100 mmol/L (98-108); Creatinine, Blood 3.92 mg/dL (0.60-1.20); Glucose, Blood 72 mg/dL (70-99); Magnesium, Blood 2.6 mg/dL (1.6-2.4); Phosphorus, Blood 6.1 mg/dL (2.5-4.9); Potassium, Blood 4.4 mmol/L (3.5-5.5); Sodium, Blood 138 mmol/L (136-145); Vancomycin, Random 18.8 ug/mL
[2025-03-19 07:36] VITALS: BP 121/47
[2025-03-19] MEDS ORDERED: Atropine Sulfate 1% Opth Soln 2ML BTL SL PRN (15:25)
[2025-03-19] MEDS ORDERED: Morphine Sulfate 20 MG/1ML 1 ML Oral Syringe SL PRN (15:30)
--- NOTE | 2025-03-19 15:33 | NUR ---
PALLIATIVE CARE VISIT: CONCERNS BROUGHT FORWARD, PT REFUSING HD, MEDICATIONS, YELLING OUT FREQUENTLY. PRIMARY RN REPORTING THE ONLY TIME PT WOULD TAKE MEDICATIONS WAS WHEN FAMILY WAS PRESENT. DISCUSSED CONCERNS WITH DR. LAND. COMFORT CARE APPROPRIATE AT THIS TIME DUE TO REFUSING HD. SPOKE TO DAUGHTER CAL AND GD ON PHONE. UPDATED CAL ON CONCERNS ABOVE. PER CAL GOAL IS TO GET PT HOME ON HOSPICE BUT THEY ALSO WANT HIM TO BE COMFORTABLE AND THAT IS MOST IMPORTANT AT THIS TIME. ALL FAMILY CAME IN TO VISIT TODAY AND ARE AGREEABLE TO COMFORT CARE PER CAL. CALLED DR. LAND FOR ORDERS. UPDATED PRIMARY RN. WILL START CONSERTIVE DOSE OF ROXANOL SINCE PT ONLY TAKING NORCO ONCE TODAY. WILL LEAVE COREG AND NITRO PASTE FOR COMFORT. PT MAY NOT TAKE COREG BUT OPTION IS AVAILABLE IF HE IS WILLING AND WILL BE HELPFUL FOR HEART RATE CONTROL. COMFORT ORDERS PLACED. PROVIDED QUILT AND PILLOW FOR PT COMFORT.
--- NOTE | 2025-03-19 18:20 | NUR ---
End of shift summary: Patient is alert to self only; yells out throughout the shift. Patient now comfort care with plan to go home on Friday with [facility]. Patient still resistant to care at times, and medications. Patient repositioned throoughtout the day for comfort. All medications adminsitered per EMAR with patient refusal at times. Patient with new Meplex to coccyx. Call light within reach and patient encouraged to use, bed in lowest position. Will continue to monitor until next shift nurse arrives and report is given.
[2025-03-20] MEDS ORDERED: Morphine Sulfate 20 MG/1ML 1 ML Oral Syringe SL PRN (08:40)
--- NOTE | 2025-03-20 15:44 | NUR ---
ASSUMED CARE OF PT PT IS NOT ALERT AND HARD TO CONSOLE, AT TIMES PT CAN MAKE NEEDS KNOW WHEN I ASK DIRECT QUESTIONS BUT IS CRYING OUT FOR THE MOST PART. PT MEDICATED PER MAR AND HOSPICE POLICY. PT REPOSTIONED FOR COMFORT, NEW MEPILEX APPLIED TO COCCYX. PT CURRENTLY NOT ALERT ENOUGH FOR PT MEDICATIONS.
--- NOTE | 2025-03-20 15:47 | NUR ---
0930 PT AWOKE AND REQUESTED APPLE JUICE, THICKEN JUICE GIVEN AND WAS ABLE TO SABINO WELL. PT REPOSITIONED FOR COMFORT, PT MEDICATED FOR PAIN. SISTER AT BEDSIDE, EXPLAINED HOSPICE PROCESS AND COMFORTED PT FAMILY. PT TO GO HOME WITH HOSPICE AT SOME POINT TOMORROW. NOTIFIED PALLIATIVE CARE TEAM ABOUT FAMILY QUESTIONS. SISTER TO GO TO PALLIATIVE CARE OFFICE.
--- NOTE | 2025-03-20 17:06 | NUR ---
1630 entered room to reposition pt, pt looked comfortable and calmand furrther assessment it was noted pt was not breathing. heart beat and chest rise was monitored for 1 min, second nurse alexander sprague assessed to verify and pt was pronounsed at 1639. notified sister Kathya notified charge nurse notified
--- NOTE | 2025-03-20 18:53 | NUR ---
Tello (pt) has recently and is joined at bedside with niece and spouse. Family members show signs of emotional distress but maintain composure. Family requested prayed and I provided it. Conducted brief life review and family affirmed pt's religiousity. Family members thanked me for visiting and for prayer. Encouraged self care and tended to family's immediate needs. Family members appeared more composed following visit and freely express various emotions ranging from tears to laughter. Provided anticipatory grief education. Family has chosen [facility] for mortuary purposes.
== END 2025-03-20 16:39 | DRG 325 ==
LOC: ER 10:06 → MEDS 10:07 → PCU 03-09 07:52 → ICUE 03-09 07:52 → MEDS 03-09 07:52 → ICUE 03-09 11:46 → PCU 03-17 16:45 → MEDS 03-18 22:59
PROVIDERS: Emergency Medicine; Internal Medicine; Student in an Organized Health Care Education/Training Program; ADMIT Internal Medicine
PROC: 5A1D70Z Performance of Urinary Filtration, Intermittent, Less than 6 Hours Per Day (ICD-10-PCS; principal; 2025-03-08)
PROC: 02F03ZZ Fragmentation in Coronary Artery, One Artery, Percutaneous Approach (ICD-10-PCS; 2025-03-09)
PROC: 02F13ZZ Fragmentation in Coronary Artery, Two Arteries, Percutaneous Approach (ICD-10-PCS; 2025-03-09)
PROC: 5A12012 Performance of Cardiac Output, Single, Manual (ICD-10-PCS; 2025-03-09)
PROC: 30233J1 Transfusion of Nonautologous Serum Albumin into Peripheral Vein, Percutaneous Approach (ICD-10-PCS; 2025-03-09)
PROC: 0BH17EZ Insertion of Endotracheal Airway into Trachea, Via Natural or Artificial Opening (ICD-10-PCS; 2025-03-09)
PROC: 3E033XZ Introduction of Vasopressor into Peripheral Vein, Percutaneous Approach (ICD-10-PCS; 2025-03-09)
PROC: 02HV33Z Insertion of Infusion Device into Superior Vena Cava, Percutaneous Approach (ICD-10-PCS; 2025-03-09)
PROC: 4A023N7 Measurement of Cardiac Sampling and Pressure, Left Heart, Percutaneous Approach (ICD-10-PCS; 2025-03-09)
PROC: B2111ZZ Fluoroscopy of Multiple Coronary Arteries using Low Osmolar Contrast (ICD-10-PCS; 2025-03-09)
PROC: B2131ZZ Fluoroscopy of Multiple Coronary Artery Bypass Grafts using Low Osmolar Contrast (ICD-10-PCS; 2025-03-09)
PROC: 3E03329 Introduction of Other Anti-infective into Peripheral Vein, Percutaneous Approach (ICD-10-PCS; 2025-03-09)
PROC: 5A1955Z Respiratory Ventilation, Greater than 96 Consecutive Hours (ICD-10-PCS; 2025-03-09)
PROC: 0DH67UZ Insertion of Feeding Device into Stomach, Via Natural or Artificial Opening (ICD-10-PCS; 2025-03-10)
PROC: 3E0G76Z Introduction of Nutritional Substance into Upper GI, Via Natural or Artificial Opening (ICD-10-PCS; 2025-03-10)
PROC: 5A09357 Assistance with Respiratory Ventilation, Less than 24 Consecutive Hours, Continuous Positive Airway Pressure (ICD-10-PCS; 2025-03-14)
PROC: 4A023N7 Measurement of Cardiac Sampling and Pressure, Left Heart, Percutaneous Approach (ICD-10-PCS; 2025-03-14)
PROC: B2111ZZ Fluoroscopy of Multiple Coronary Arteries using Low Osmolar Contrast (ICD-10-PCS; 2025-03-14)
PROC: B41F1ZZ Fluoroscopy of Right Lower Extremity Arteries using Low Osmolar Contrast (ICD-10-PCS; 2025-03-14)
PROC: B2131ZZ Fluoroscopy of Multiple Coronary Artery Bypass Grafts using Low Osmolar Contrast (ICD-10-PCS; 2025-03-14)
PROC: 0T9B70Z Drainage of Bladder with Drainage Device, Via Natural or Artificial Opening (ICD-10-PCS; 2025-03-15)
PROC: 4A033R1 Measurement of Arterial Saturation, Peripheral, Percutaneous Approach (ICD-10-PCS; 2025-03-15)
DX: I13.2 Hypertensive heart and chronic kidney disease with heart failure and with stage 5 chronic kidney disease, or end stage renal disease (principal); G92.8 Other toxic encephalopathy; I50.23 Acute on chronic systolic (congestive) heart failure; J96.01 Acute respiratory failure with hypoxia; N18.6 End stage renal disease; I21.4 Non-ST elevation (NSTEMI) myocardial infarction; I21.19 ST elevation (STEMI) myocardial infarction involving other coronary artery of inferior wall; A04.72 Enterocolitis due to Clostridium difficile, not specified as recurrent; E87.1 Hypo-osmolality and hyponatremia; F20.0 Paranoid schizophrenia; E87.70 Fluid overload, unspecified; Z51.5 Encounter for palliative care; Z66 Do not resuscitate; Z99.2 Dependence on renal dialysis; Z99.81 Dependence on supplemental oxygen; I25.10 Atherosclerotic heart disease of native coronary artery without angina pectoris; J44.9 Chronic obstructive pulmonary disease, unspecified; I46.8 Cardiac arrest due to other underlying condition; E11.22 Type 2 diabetes mellitus with diabetic chronic kidney disease; M54.50 Low back pain, unspecified; G89.29 Other chronic pain; E11.42 Type 2 diabetes mellitus with diabetic polyneuropathy; D63.1 Anemia in chronic kidney disease; F17.210 Nicotine dependence, cigarettes, uncomplicated; M54.2 Cervicalgia; E87.5 Hyperkalemia; I25.2 Old myocardial infarction; B97.89 Other viral agents as the cause of diseases classified elsewhere; B96.89 Other specified bacterial agents as the cause of diseases classified elsewhere; E78.5 Hyperlipidemia, unspecified; I95.3 Hypotension of hemodialysis; E83.39 Other disorders of phosphorus metabolism; R57.0 Cardiogenic shock; I25.5 Ischemic cardiomyopathy; E11.51 Type 2 diabetes mellitus with diabetic peripheral angiopathy without gangrene; R13.10 Dysphagia, unspecified; R50.9 Fever, unspecified; K27.9 Peptic ulcer, site unspecified, unspecified as acute or chronic, without hemorrhage or perforation; F41.9 Anxiety disorder, unspecified; I08.0 Rheumatic disorders of both mitral and aortic valves; Z91.158 Patient's noncompliance with renal dialysis for other reason; Z95.1 Presence of aortocoronary bypass graft; Z86.73 Personal history of transient ischemic attack (TIA), and cerebral infarction without residual deficits; Z86.19 Personal history of other infectious and parasitic diseases; Z79.02 Long term (current) use of antithrombotics/antiplatelets; Z79.82 Long term (current) use of aspirin; Z98.890 Other specified postprocedural states; Z79.899 Other long term (current) drug therapy; Z88.6 Allergy status to analgesic agent; Z88.8 Allergy status to other drugs, medicaments and biological substances
CPT/HCPCS: 0202U; 31500; 36415; 36556; 36600; 51703; 70450; 71045; 73706; 74018; 74174; 74230; 76937; 80048; 80053; 80069; 80202; 82803; 82947; 83605; 83735; 83880; 84100; 84484; 85014; 85018; 85025; 85347; 87040; 87070; 87077; 87205; 87324; 87507; 92526; 92610; 92611; 92920; 92972; 93005; 93010; 93308; 93321; 93455; 94002; 94003; 94640; 94660; 94664; 94760; 94762; 96372; 97110; 97162; 99152; 99153; 99285-25; A9270; C1725; C1751; C1761; C1769; C1887; C1894; G0378; J0612; J0696; J0881; J1200; J1644; J2250; J2371; J2704; J3010; J3373; J3475; J7030; J7040; J7050; J7060; P9047; Q9967